=== PATIENT | female | born 2000 | race Caucasian/White ===

== ENCOUNTER 2020-08-25 20:07 | Emergency (ER) | payer BC, SELFPAY ==
[2020-08-25 20:10] VITALS: BP 126/95; PULSE 86; RESP 20; TEMP 37.2; O2SAT 98
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
[2020-08-25] MEDS: SILVER SULFADIAZINE 1% CR 50 GM JAR (*BKC) 1 APPLIC TOPICAL (20:25)
[2020-08-25 20:49] VITALS: BP 126/95; PULSE 87; RESP 20; TEMP 37.2; O2SAT 97
== END 2020-08-25 20:51 | disposition home or self-care (01) ==
PROVIDERS: Emergency Provider Emergency Medicine
DX: T23.261A Burn of second degree of back of right hand, initial encounter (principal); X08.8XXA Exposure to other specified smoke, fire and flames, initial encounter
CPT/HCPCS: 16020; 99283; A9270

== ENCOUNTER 2021-07-21 18:12 | Emergency (ER) | payer BC, MEDICAID, SELFPAY ==
--- NOTE | 2021-07-21 18:34 | ED.NAVMDI ---
HPI - Nausea/Vomiting/Diarrhea General Chief complaint: Headache Stated complaint: headache,diarrhea,fever,dizzy,weakness Time Seen by Provider: 07/21/21 18:14 Source: patient Mode of arrival: ambulatory Limitations: no limitations History of Present Illness HPI Narrative: Previously well 20-year-old woman comes in today complaining of 6 days of diarrhea, fatigue, headache, dizziness and weakness. She states she had fever for the 1st 2 days of her illness. Her preschool children had some mild illness prior to her, 1 of whom had diarrhea. She has had no other exposures. She had 2 negative rapid COVID tests in the last week. She denies nausea, vomiting, abdominal pain, rash, dysuria, and blood in her stools. MD elicited complaint: diarrhea Onset (ago): day(s) (6) Description of diarrhea: watery Associated nausea: No Associated abdominal pain: No (Except before a bowel movement) Quality: cramping Relieving factors: none Context: sick contacts Associated symptoms: myalgias, fever/chills, headaches, loss of appetite, malaise and fatigue Treatment prior to arrival: analgesics Related Data Home Medications Medication Instructions Recorded Confirmed sertraline 100 mg PO DAILY 07/21/21 07/21/21 Allergies Allergy/AdvReac Type Severity Reaction Status Date / Time amoxicillin Allergy Severe Other Verified 07/21/21 18:58 tramadol Allergy Severe THROAT Verified 07/21/21 18:58 SWELLING clavulanic acid Allergy Swelling Verified 07/21/21 18:58 [From Augmentin] Review of Systems Review of Systems: All systems reviewed & are unremarkable except as noted in HPI and below Constitutional: Constitutional: Denies chills and Reports fever(s) Eyes: Eyes: Denies change in vision and Denies photophobia ENT: Denies nasal congestion and Reports sore throat Respiratory: Respiratory: Denies cough, Denies dyspnea and Denies wheezing Gastrointestinal: Gastrointestinal: Reports abdominal pain, Reports diarrhea, Denies nausea and Denies vomiting Genitourinary: Genitourinary: Denies nocturia and Denies dysuria Musculoskeletal: Musculoskeletal: Denies arthralgias and Denies joint swelling Integumentary/Breasts: Skin/Breast: Denies pruritus, Denies erythema and Denies rash Neurologic: Denies vertigo, Reports dizziness and Denies syncope [facility] Past Medical History Medical History (Updated 07/21/21 @ 20:45 by Aguila Maya MD) Anxiety and depression GERD (gastroesophageal reflux disease) Surgical History Surgical History (Updated 07/21/21 @ 18:50 by Aguila Maya MD) History of X2 Social History Social History Smoking status: Never smoker Alcohol intake: never Substance use: never Exam Const: General: healthy appearing and alert Orientation/consciousness: patient oriented x3 Limitations: no limitations Other: Moderate acute distress. HENMT: Head: normal to inspection Ears: external ears normal, TM's normal bilaterally and EAC's normal General nose exam: Normal nares present Face and sinus: normal facial exam Mouth: Yes moist mucous membranes Throat: posterior oropharynx normal Eyes: Conjunctivae: conjunctivae normal Cornea: corneas normal Pupils: Equal, round and reactive pupils present EOM: EOMs intact bilaterally Neck: Neck: normal visual inspection and no meningeal signs Resp: Effort & Inspection: normal respiratory effort and not labored Auscultation: clear to auscultation bilaterally, no rales, no rhonchi and no wheezes Cardio: Rate: regular rate Rhythm: regular rhythm Heart sounds: no murmurs GI: GI Palp: Yes Soft to palpation and No Tenderness to palpation present (GI) Skin: General skin exam: normal color, no jaundice and no pallor Rashes: no rashes Neuro: General: patient oriented x3, moves all extremities, no focal motor deficits and CN's II-XI intact bilaterally Speech: normal speech Gait exam (Neuro):
[2021-07-21 18:41] VITALS: BP 119/76; PULSE 80; RESP 20; TEMP 36.7; O2SAT 100
[2021-07-21] MEDS: SODIUM CHLORIDE 0.9% IV 1,000 ML 999 ML IV CONT ×2 (18:53→20:10)
[2021-07-21 19:18] LABS: Basophils Absolute Auto 0.02 K/mm3 (0.00-0.10); Basophils Percent Auto 0.4 % (0.0-1.0); Eosinophils Absolute Auto 0.19 K/mm3 (0.02-0.50); Eosinophils Percent Auto 3.4 % (1.0-6.0); Hematocrit 34.3 % (35.0-49.0); Hemoglobin 10.2 g/dL (12.0-15.0); Immature Granulocyte Absolute 0.01 K/mm3 (0.00-0.00); Immature Granulocyte Percent A 0.2 % (0.0-0.0); Lymphocytes Absolute Auto 1.96 K/mm3 (1.10-4.50); Lymphocytes Percent Auto 35.1 % (18.0-42.0); Mean Corpuscular HGB Conc 29.7 g/dL (32.0-36.0); Mean Corpuscular Hemoglobin 24.3 pg (27.0-31.0); Mean Corpuscular Volume 81.9 fL (78.0-102.0); Mean Platelet Volume 11.1 fl (9.2-11.8); Monocytes Absolute Auto 0.69 K/mm3 (0.10-0.90); Monocytes Percent Auto 12.3 % (2.0-11.0); Neutrophils Absolute Auto 2.7 K/mm3 (1.7-7.2); Neutrophils Percent Auto 48.6 % (50.0-70.0); Platelet Count Result 317 K/mm3 (150-420); Red Blood Count 4.19 M/mm3 (4.20-5.40); Red Cell Distribution Width 14.5 % (11.6-14.4); White Blood Count 5.6 K/mm3 (4.8-10.8)
[2021-07-21 19:37] LABS: Lactic Acid Reflex 0.9 mmol/L (0.4-2.0)
--- NOTE | 2021-07-21 19:43 | PC.NURSE ---
received report from ALAYNA Gallegos. Patient has been swabbed and labs drawn and sent to lab, pending results. Patient resting comfortably in bed at this time.
[2021-07-21 19:44] LABS: Alanine Aminotransferase 29 U/L (14-59); Albumin Level 3.1 g/dL (3.4-5.0); Alkaline Phosphatase 65 U/L (46-116); Anion Gap 8 mmol/L (8-16); Aspartate Amino Transferase 21 U/L (15-37); Bilirubin,Total 0.1 mg/dL (0.00-1.00); Blood Urea Nitrogen 7 mg/dL (7-18); Calcium 8.1 mg/dL (8.5-10.1); Carbon Dioxide 26 mmol/L (21-32); Chloride 104 mmol/L (98-108); Estimated CRCL calculation 133 ml/min; Estimated Glomerular Filt Rate > 60; Glucose 81 mg/dL (70-99); Magnesium 1.8 mg/dL (1.8-2.4); Osmolality Calculated 283 mOsm/kg (285-295); Phosphorus 2.7 mg/dL (2.6-4.7); Potassium 3.5 mmol/L (3.5-5.1); Sodium 138 mmol/L (136-145)
[2021-07-21 19:45] VITALS: BP 146/80; PULSE 88; RESP 18; O2SAT 98
[2021-07-21 20:11] LABS: Add Urine Microscopic? NO; Appearance Urine Clear (Clear); Bilirubin Urine Negative (Negative); Blood Urine Negative (Negative); Color Urine Light Yellow (Yellow); Glucose Urine UA Negative (Negative); Ketones Urine Negative (Negative); Leukocyte Esterase Ur Negative (Negative); Nitrate Urine Negative (Negative); Protein Urine Negative (Negative); Urobilinogen Urine 0.2 mg/dL (0.2-1.0); pH Urine 7.5 (5.0-8.0)
[2021-07-21 20:12] LABS: Pregnancy On Board Control Positive; Urine Pregnancy Test Negative
[2021-07-21 20:13] LABS: SARS-CoV-2 RNA PCR Negative (Negative)
--- NOTE | 2021-07-21 20:25 | PC.NURSE ---
Patient unable to provide stool sample at this time
[2021-07-21] MEDS: KETOROLAC 30 MG/ML VIAL (*BKC) IV PUSH (21:00)
[2021-07-21 21:17] VITALS: BP 109/75; PULSE 77; RESP 18; TEMP 36.9; O2SAT 100
== END 2021-07-21 21:39 | disposition home or self-care (01) ==
PROVIDERS: Emergency Provider Emergency Medicine
DX: K52.9 Noninfective gastroenteritis and colitis, unspecified (principal); E86.0 Dehydration; Z20.822 Contact with and (suspected) exposure to COVID-19
CPT/HCPCS: 36415; 80053; 81003; 81025; 83605; 83735; 84100; 85025; 87040; 96361; 96374; 99283; 99284; C9803; J1885; J7030; U0003; U0005

== ENCOUNTER 2021-08-18 15:21 | Outpatient (CLI) | payer BC, SELFPAY ==
[2021-08-18 16:37] LABS: Basophils Absolute Auto 0.1 K/mm3 (0.0-0.1); Basophils Percent Auto 0.5 % (0.2-1.2); Eosinophils Absolute Auto 0.2 K/mm3 (0-0.3); Eosinophils Percent Auto 2.3 % (0-4.4); Hematocrit 34.9 % (37.0-47.0); Immature Granulocyte Absolute 0.02 K/mm3 (0.00-0.031); Immature Granulocyte Percent A 0.2 % (0-0.5); Lymphocytes Absolute Auto 2.35 K/mm3 (0.9-3.2); Lymphocytes Percent Auto 24.8 % (18.3-44.2); Mean Corpuscular HGB Conc 31.5 g/dl (32-36); Mean Corpuscular Hemoglobin 25.2 pg (26-34); Mean Corpuscular Volume 79.9 fl (80-100); Mean Platelet Volume 10.7 fl (7.4-10.4); Monocytes Absolute Auto 0.6 K/mm3 (0.1-0.6); Monocytes Percent Auto 6.6 % (2.6-8.5); Neutrophils Absolute Auto 6.2 K/mm3 (1.3-6.7); Neutrophils Percent Auto 65.6 % (45.5-73.1); Platelet Count Result 338 k/mm3 (150-375); Red Blood Count 4.37 M/mm3 (4.2-5.4); Red Cell Distribution Width 16.2 % (11.5-14.5); White Blood Count 9.5 K/mm3 (4.5-10.0)
[2021-08-18 17:32] LABS: HIV 1/2 Ab P24 Ag Result Negative (Negative)
[2021-08-18 18:41] LABS: Hepatitis B Surface Antigen Negative (Negative); Rubella IgG Antibody 52.7 IU/ML
[2021-08-19 12:40] LABS: Rapid Plasma Reagin Non-Reactive (NonReactive)
[2021-08-20 16:43] LABS: CMV IgG Antibody <0.60 U/mL (<0.60)
== END 2021-08-18 15:22 | disposition home or self-care (01) ==
LOC: ANHIMG 15:31 → ANHLAB 16:10
PROVIDERS: PCP Nurse Practitioner Family; Visit Provider Obstetrics & Gynecology
DX: N94.89 Other specified conditions associated with female genital organs and menstrual cycle (principal)
CPT/HCPCS: 36415; 84702; 85025; 86592; 86644; 86703; 86747; 86762; 86787; 86850; 86900; 86901; 87086; 87088; 87340; G0432

== ENCOUNTER 2021-08-25 16:27 | Outpatient (CLI) | payer BC, SELFPAY ==
--- NOTE | ~2021-08-25 | US_ITS ---
EXAMINATION: US OB <= 14 weeks fetus DATE: 08/25/2021 17:07 INDICATION: Dating of during first trimester TECHNIQUE: Real-time pelvic ultrasound utilizing both a transvaginal and transabdominal probe was pe rformed. The interpreting radiologist was not present for the study. COMPARISON: None. FINDINGS: The uterus measures 10.9 x 6.8 x 7.7 cm. There is an intrauterine gestational sac. A yolk sac and fe janee pole are identified. The crown rump length measures 2.0 cm, which correlates with an estimated ge stational age of 8 weeks and 4 days. heart motion is identified measuring 176 beats per minute (bpm) by M-mode Doppler. The right ovary measures 3.0 x 2.1 x 1.6 cm. Vascular flow identified in the right ovary on color Dop pler. The left ovary is not visualized. There is no free fluid in the pelvis. IMPRESSION: 1. Single living fetus with heart rate of 176 bpm. 2. Gestational age by ultrasound of 8 weeks 4 day(s) +/- 5 day(s) with ultrasound estimated date of delivery ([facility]) of 04/02/2022. Reviewed, dictated and finalized at location A. [employer] IMPRESSION: 1. Single living fetus with heart rate of 176 bpm. 2. Gestational age by ultrasound of 8 weeks 4 day(s) +/- 5 day(s) with ultraso und estimated date of delivery ([facility]) of 04/02/2022.
== END 2021-08-25 16:28 | disposition home or self-care (01) ==
LOC: ANHIMG 16:28
PROVIDERS: PCP Nurse Practitioner Family; Visit Provider Obstetrics & Gynecology
DX: Z34.91 Encounter for supervision of normal pregnancy, unspecified, first trimester (principal); Z3A.01 Less than 8 weeks gestation of pregnancy
CPT/HCPCS: 76801

== ENCOUNTER 2021-12-14 15:38 | Outpatient (CLI) | payer BC, SELFPAY ==
--- NOTE | ~2021-12-14 | US_ITS ---
EXAMINATION: US OB /maternal detail DATE: 12/14/2021 17:00 INDICATION: Second trimester anatomic survey TECHNIQUE: Real-time ultrasound of the pelvis was performed. COMPARISON: None. FINDINGS: There is a single living fetus in vertex presentation. The placenta is anterior and 4.3 cm from the i nternal cervical os. heart rate is 141 beats per minute (bpm). cardiac activity and feta l movement are noted. The amniotic fluid index is subjectively normal. The following anatomy was identified as normal: 4 chamber heart 3 vessel cord cord insertion kidneys urinary bladder stomach spine diaphragm ventricles cisterna magna cerebellum The following biometric data were obtained: Biparietal diameter (BPD): 5.9 cm; head circumference (HC): 22.1 cm; abdominal circumference (AC): 20 .9 cm; femur length (FL): 4.3 cm. These measurements are concordant. Estimated weight is 733 g +/- 110 g, which correlates with the 57th percentile when 04/02/2022 i s used as estimated date of delivery. As single measurements, these parameters are each equal to the following estimated gestational ages w ith ranges of +/- 2 standard deviations: BPD: 24 weeks 0 days +/- 1 weeks 5 days. HC: 24 weeks 1 days +/- 2 weeks 0 days. AC: 25 weeks 3 days +/- 2 weeks 1 days. FL: 24 weeks 1 days +/- 2 weeks 1 days. estimated gestational age based solely on measurements from this exam is 24 weeks 3 days +/- 1 weeks 5 days. IMPRESSION: 1. Single living fetus in vertex presentation. 2. Estimated weight is 733 g +/- 110 g, which correlates with the 57th percentile when 2 is used as estimated date of delivery. Reviewed, dictated and finalized at location F. IMPRESSION: 1. Single living fetus in vertex presentation. 2. Estimated weight is 733 g +/- 110 g, which correlates with the 57th pe rcentile when 04/02/2022 is used as estimated date of delivery.
== END 2021-12-14 15:39 | disposition home or self-care (01) ==
PROVIDERS: PCP Nurse Practitioner Family; Visit Provider Obstetrics & Gynecology
DX: Z34.92 Encounter for supervision of normal pregnancy, unspecified, second trimester (principal); Z3A.24 24 weeks gestation of pregnancy
CPT/HCPCS: 76805

== ENCOUNTER 2022-03-29 04:50 | Inpatient (IN) | payer BC, SELFPAY ==
[2022-03-29] VITALS (81 sets, daily range): BP systolic 104–130; BP diastolic 60–98; PULSE 54–139; RESP 16–20; TEMP 36.5–37.4; O2SAT 85–100; BMI 30.8
[2022-03-29] MEDS: LACTATED RINGERS 1,000 ML 125 ML IV CONT (06:32)
[2022-03-29] MEDS: GENTAMICIN SULFATE INJ 340 MG in DEXTROSE 5% 100 ML 108.5 MG IVPB (06:32)
[2022-03-29] MEDS: LACTATED RINGERS 1,000 ML 999 ML IV CONT (06:35)
--- NOTE | 2022-03-29 06:46 | LDADM ---
This patient, Shona Fierro, was admitted to Labor/Delivery/Recovery 120 on 03/29/22 at 04:50. Plans for labor, pain management and were discussed with patient. Patient/family oriented to hospital policies and general routines including ID bracelet, bed and alarms, visiting hours, pain management, procedures, bathroom and other care routines, personal items, smoking policy, room service/diet and guest tray routines, security routines, and visiting hours. Patient/Family are encouraged to report perceived risks to care and to ask questions if they do not understand what they are told or what they should do. See OBIX for further documentation.
[2022-03-29 06:51] LABS: Basophils Percent Auto 0.4 % (0.2-1.2); Eosinophils Absolute Auto 0.1 K/mm3 (0-0.3); Eosinophils Percent Auto 1.7 % (0-4.4); Hematocrit 28.4 % (37.0-47.0); Hemoglobin 8.2 g/dL (12.0-15.0); Immature Granulocyte Absolute 0.03 K/mm3 (0.00-0.031); Immature Granulocyte Percent A 0.4 % (0-0.5); Lymphocytes Absolute Auto 2.11 K/mm3 (0.9-3.2); Lymphocytes Percent Auto 29.7 % (18.3-44.2); Mean Corpuscular HGB Conc 28.9 g/dl (32-36); Mean Corpuscular Volume 76.1 fl (80-100); Mean Platelet Volume 11.9 fl (7.4-10.4); Monocytes Absolute Auto 0.8 K/mm3 (0.1-0.6); Monocytes Percent Auto 11.5 % (2.6-8.5); Neutrophils Percent Auto 56.3 % (45.5-73.1); Platelet Count Result 271 k/mm3 (150-375); Red Blood Count 3.73 M/mm3 (4.2-5.4); Red Cell Distribution Width 18.2 % (11.5-14.5); White Blood Count 7.1 K/mm3 (4.5-10.0)
--- NOTE | 2022-03-29 06:57 | WPDANESEPPF ---
Anes - Initial Pre Proc Eval Procedure: Operation Date: 03/29/22 07:30 Proposed Procedures p Repeat Section - Esequiel Evans MD Date/Time: 03/29/22 06:57 Surgeon: Esequiel Evans MD Pre Op Diagnosis: c/s Patient Data Age: 21 Gender: F Height: 1.65 m Weight: 84 kg Last Vital Signs Pulse 95 03/29/22 06:01 BP 112/71 03/29/22 06:01 O2 Del Method Room Air 03/29/22 06:44 Allergies Allergy/AdvReac Type Severity Reaction Status Date / Time amoxicillin Allergy Severe Other Verified 03/29/22 06:54 tramadol Allergy Severe THROAT Verified 03/29/22 06:54 SWELLING clavulanic acid Allergy Swelling Verified 03/29/22 06:54 [From Augmentin] Home Medications Medication Instructions Recorded Confirmed Type vitamins-iron fumarate 65 1 tablet PO DAILY 08/12/21 03/29/22 History mg iron-folic acid 1 mg tablet Laboratory Tests 03/29/22 03/29/22 03/29/22 06:17 06:17 06:17 WBC Pending RBC Pending Hgb Pending Hct Pending MCV Pending MCH Pending MCHC Pending RDW Pending Plt Count Pending MPV Pending Immature Gran % (Auto) Pending Neut % (Auto) Pending Lymph % (Auto) Pending Hettinger % (Auto) Pending Eos % (Auto) Pending Baso % (Auto) Pending Lymph # (Auto) Pending Hettinger # (Auto) Pending Eos # (Auto) Pending Baso # (Auto) Pending Abs Immat Gran (auto) Pending Absolute Neuts (auto) Pending Absolute Nucleated RBC Pending Nucleated RBC % Pending RPR Pending HIV 1&2 Ab/P24 Ag 4thGn Pending Patient hx anesthesia problems: none Family hx anesthesia problems: none Results Review: All pre-operative results and documents have been reviewed as part of the pre-operative evaluation. [facility] Past Medical History Medical History (Updated 09/15/21 @ 14:25 by Jessica Montanez MA) Anemia Anxiety and depression Endometriosis GERD (gastroesophageal reflux disease) Suppression of menstruation Urinary tract infection Surgical History Surgical History (Updated 08/11/21 @ 10:03 by Lia Malcolm) History of 03/11/19 10/11/17 History of laparoscopy 2017 diagnostic--endometriosis and lt ovarian bx Family History Family History (Updated 08/11/21 @ 10:05 by Lia Malcolm) Mother Hypertension Father Hypertension Grandparent Diabetes mellitus paternal grandmother Social History Social History (Updated 08/12/21 @ 10:04 by Vianney Lau, [facility]) Smoking status: Never smoker Second hand tobacco smoke exposure: No Alcohol intake: never Substance use: never Substance use type: does not use Additional occupation/education comments: [employer] Gender identity (if verbalized by the patient): Female Sexual Orientation (if Verbalized by the Patient): Straight or Heterosexual Spiritual care concerns: No Anes - Eval Final PreProcedure Day of Procedure 03/29/22 06:57 Patient weight: obese Heart: regular rate and rhythm Lungs: clear to auscultation and normal air movement Airway: Mallampati scale class II Neurological: alert and oriented Last oral intake: >/= 8 hours ASA classification: II Emergent: no Anesthetic plan: proceed Anesthesia type and monitoring: regional spinal Results Review: All pre-operative results and documents have been reviewed as part of the pre-operative evaluation. Informed Consent: The patient's anesthetic plan and its attendant risks and benefits were discussed with the patient/family/POA. Questions were solicited and answers provided to the satisfaction of the patient/family/POA.
--- NOTE | 2022-03-29 07:09 | PM.IMHP ---
H&P: HPI History of Present Illness Date/Time: 03/29/22 07:09 21 3 para 2001 female presents for repeat delivery. She is 39 weeks 3 days with 2 prior deliveries. records are on the chart and no significant abnormalities. Were also discussed/ offered tubal ligation and patient declines. Chief Complaint: Review of Systems Review of Systems: All systems reviewed & are unremarkable except as noted in HPI and below PMFSH Past Medical History Medical History Anemia Anxiety and depression Endometriosis GERD (gastroesophageal reflux disease) Suppression of menstruation Urinary tract infection Surgical History Surgical History History of 03/11/19 10/11/17 History of laparoscopy 2017 diagnostic--endometriosis and lt ovarian bx Family History Family History Mother Hypertension Father Hypertension Grandparent Diabetes mellitus paternal grandmother Social History Social History Smoking status: Never smoker Second hand tobacco smoke exposure: No Alcohol intake: never Substance use: never Substance use type: does not use 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 Gender identity (if verbalized by the patient): Female Sexual Orientation (if Verbalized by the Patient): Straight or Heterosexual Spiritual care concerns: No Meds Home Medications and Allergies Home Medications Medication Instructions Recorded Confirmed Type vitamins-iron fumarate 65 1 tablet PO DAILY 08/12/21 03/29/22 History mg iron-folic acid 1 mg tablet Allergies Allergy/AdvReac Type Severity Reaction Status Date / Time amoxicillin Allergy Severe Other Verified 03/29/22 06:54 tramadol Allergy Severe THROAT Verified 03/29/22 06:54 SWELLING clavulanic acid Allergy Swelling Verified 03/29/22 06:54 [From Augmentin] Vital Signs Vital Signs - 24 hr 03/29/22 05:14 03/29/22 05:16 03/29/22 05:30 Pulse Rate 92 91 95 Blood Pressure 128/75 114/72 119/75 Oxygen Delivery 03/29/22 05:45 03/29/22 06:01 03/29/22 06:44 Pulse Rate 96 95 Blood Pressure 117/74 112/71 Oxygen Delivery Room Air Exam Const: General: cooperative, healthy appearing and comfortable Resp: Effort & Inspection: normal respiratory effort Auscultation: clear to auscultation bilaterally Cardio: Rate: regular rate Rhythm: regular rhythm GI: Inspection: normal to inspection Auscultation: normal bowel sounds : External Female Exam: normal external appearance Speculum Exam - Vagina: normal appearance of the vagina Speculum Exam - Cervix: normal appearance of the cervix Bimanual exam- vagina & uterus: enlarged ( heart tone 140 /fundal height 40cm) H&P: Results Labs Labs: Short CBC 03/29/22 Range/Units 06:17 WBC 7.1 (4.5-10.0) K/mm3 Hgb 8.2 L (12.0-15.0) g/dL Hct 28.4 L (37.0-47.0) % Plt Count 271 (150-375) k/mm3 Assessment and Plan Assessment and plan (1) 39 weeks gestation of : Code(s): Z3A.39 - 39 weeks gestation of Status: Acute (2) Previous delivery affecting : Code(s): O34.219 - Maternal care for unspecified type scar from previous delivery Status: Acute Plan proceed with repeat low-transverse section.
--- NOTE | 2022-03-29 07:13 | WPDHPUPDATE1 ---
History and Physical Update Update Date/Time: 03/29/22 07:13 History and Physical has been reviewed, including an updated exam of the patient. There are NO changes in the patient's condition. Risks, benefits, and alternatives have been discussed and questions answered. Patient agrees to proceed with procedure.
[2022-03-29 07:19] LABS: Anisocytosis 1+ (NORMAL); Burr Cells 1+ (NORMAL); Hypochromasia 1+ (NORMAL); Microcytosis 1+ (NORMAL); Ovalocytes 1+ (NORMAL); Platelet Estimate Adequate (Adequate)
[2022-03-29 07:20] LABS: Tear Drop Cells 1+ (NORMAL)
[2022-03-29] MEDS: CLINDAMYCIN 900 MG/D5W 50 ML 900 MG/50 ML PIGGYBACK 50 MG IVPB (07:28)
[2022-03-29 07:38] LABS: HIV 1/2 Ab P24 Ag Result Negative (Negative)
--- NOTE | 2022-03-29 08:17 | PM.OBPRVD ---
OB - Delivery Note Procedure Procedure: Procedures Operation Date: 03/29/22 07:30 <No data on this case meets the specified criteria> Events: Previous Delivery Delivery monitor: External FHT Route of delivery: Specimen: No Quantitative Blood Loss (ml): 550 Anesthesia type: Spinal Disposition: PACU Complications: None Narrative: Patient was prepped and draped in Garima manner for this procedure. Pfannenstiel incision was made and carried down to the fascia. This was then extended bilaterally the length of the skin incision. Fascia was then sharply dissected away from the rectus muscles in the peritoneum was entered without difficulty. Bladder flap was developed uterus was scored with clear fluid noted. Vertex was delivered section naso-oropharynx rest of baby was delivered without difficulty. Cord clamped cut and uterus was exteriorized after the placenta was manually removed. Membranes and clots removed from the uterus and the uterine incision was then approximated using 0 Monocryl in a running interlocking manner. Uterus was turned the abdomen and continued to be hemostatic. All subfascial tissue was noted be hemostatic and the fascia was then approximated using 0 Vicryl from the left midline and the right angle to the midline. Subcutaneous tissue was irrigated approximated using 0 plain suture and lakeisha were used to approximate the skin edges. Patient was then sent to recovery room in stable condition. Baby Weeks of gestation at delivery: 39 gender: Female Weight (pounds): 8 Weight (ounces): 5 presentation: vertex Placenta delivery description: Manual Removal Cord Vessel Description: 3 Vessels score one minute: 7 score five minutes: 7 AMG Delivery Billing Delivery Delivery: Delivery Charge
--- NOTE | 2022-03-29 08:27 | SUR.PHASEI ---
Pt has 1000 ml of LR with 10 units Pitocin hanging.
[2022-03-29] MEDS: ONDANSETRON INJ 4 MG/2 ML VIAL IV PUSH (08:58)
[2022-03-29] MEDS: MORPHINE SULFATE INJ (*CRX) 10 MG/ML AMP 2 MG IV PUSH ×2 (09:25→10:07)
[2022-03-29] MEDS: OXYTOCIN 30 UNITS/NS 500 ML 30 UNITS/500 ML BAG 125 UNITS IV CONT (10:00)
--- NOTE | 2022-03-29 10:09 | SUR.OPER ---
Dr. Evans informed I have been having to massage uterus for it to become firm and then several small clots have been expressed. Recovery QBL is still OK at 171 ml. Order received for a dose of Methergine.
[2022-03-29] MEDS: METHYLERGONOVINE MALEATE 0.2 MG/ML VIAL IM (10:15)
--- NOTE | 2022-03-29 10:51 | PC.NURSE ---
Pt to nursery per stretcher to see .
--- NOTE | 2022-03-29 11:01 | SUR.OPER ---
Pt had arm bent with 1100 BP that was 130/98; repeat taken with arm relaxed was 119/75.
--- NOTE | 2022-03-29 11:42 | PC.NURSE ---
Patient transferred to post room # via ( [id number] ). Support person present. Oriented to unit, room, information board, rooming in, admission packet and security measures. Patient verbalizes understanding.
[2022-03-29] MEDS: DEXTROSE 5%/0.45% SOD CHL 1,000 ML 125 ML IV CONT (15:10)
[2022-03-29] MEDS: DOCUSATE SODIUM 100 MG CAPSULE PO (15:11)
[2022-03-29] MEDS: MULTIVIT/MIN/PREN/FOL AC/IRON TABLET 1 TAB PO (15:12)
--- NOTE | 2022-03-29 16:16 | PC.NURSE ---
[id number] Introductions were made, then consulted with patient to assess needs related to . Mother led the conversation with the separation between her and her infant at delivery. Resources provided for inpatient and outpatient services using a resource guide and mom/baby guide. Mother voiced understanding of information and is willing to initiate pumping. Breast pump provided due to separation. Instructions given on cleaning, care, usage, that there should be no pain, pumping schedule for milk production, collection, and storage of human milk. Parents are encouraged to record pumping schedule on the feeding sheet. Patient was assessed for correct placement, flange size, to pump for comfort and nipple stretching/stimulation for adequate milk production every 3 hours (8 times in 24 hours) 1-2 times at night. Mother voiced understanding of the education shared along with mom and baby guide for additional resource information. Reported to the primary RN.
[2022-03-29] MEDS: LORATADINE 10 MG TABLET PO (17:14)
[2022-03-29] MEDS: POLYSACCHARIDE IRON COMPLEX 150 MG CAPSULE PO (17:14)
[2022-03-29] MEDS: HYDROcodone/acetaminophen (*CRX) 5-325 MG TABLET 1 TAB PO ×2 (17:14→21:54)
[2022-03-29] MEDS: diphenhydrAMINE HCl CAP 25 MG CAPSULE 50 MG PO (21:52)
[2022-03-29] MEDS: IBUPROFEN 600 MG TABLET PO (21:52)
[2022-03-29] MEDS: KCL 20 MEQ/D5/0.45% SOD CHL 1,000 ML 125 ML IV CONT (23:13)
[2022-03-29] MEDS: hydrOXYzine pamoate 25 MG CAPSULE 50 MG PO (23:56)
[2022-03-30 01:08] VITALS: BP 107/65; PULSE 76; RESP 18; TEMP 37; O2SAT 98
[2022-03-30 05:23] VITALS: BP 113/80; PULSE 84; RESP 16; TEMP 36.4; O2SAT 99
[2022-03-30] MEDS: IBUPROFEN 600 MG TABLET PO (05:37)
[2022-03-30] MEDS: HYDROcodone/acetaminophen (*CRX) 5-325 MG TABLET 1 TAB PO ×2 (05:39→11:47)
[2022-03-30] MEDS: SIMETHICONE 80 MG TAB.CHEW PO ×3 (05:40→12:02)
[2022-03-30 06:39] LABS: Basophils Percent Auto 0.4 % (0.2-1.2); Eosinophils Absolute Auto 0.2 K/mm3 (0-0.3); Eosinophils Percent Auto 2.3 % (0-4.4); Hematocrit 25.2 % (37.0-47.0); Hemoglobin 7.1 g/dL (12.0-15.0); Immature Granulocyte Absolute 0.02 K/mm3 (0.00-0.031); Immature Granulocyte Percent A 0.3 % (0-0.5); Lymphocytes Absolute Auto 1.78 K/mm3 (0.9-3.2); Lymphocytes Percent Auto 24.1 % (18.3-44.2); Mean Corpuscular HGB Conc 28.2 g/dl (32-36); Mean Corpuscular Hemoglobin 22.1 pg (26-34); Mean Corpuscular Volume 78.5 fl (80-100); Mean Platelet Volume 11.3 fl (7.4-10.4); Monocytes Absolute Auto 0.9 K/mm3 (0.1-0.6); Monocytes Percent Auto 11.8 % (2.6-8.5); Neutrophils Absolute Auto 4.5 K/mm3 (1.3-6.7); Neutrophils Percent Auto 61.1 % (45.5-73.1); Platelet Count Result 226 k/mm3 (150-375); Red Blood Count 3.21 M/mm3 (4.2-5.4); White Blood Count 7.4 K/mm3 (4.5-10.0)
[2022-03-30 07:25] LABS: Anisocytosis 1+ (NORMAL); Platelet Estimate Adequate (Adequate); Poikilocytosis 1+ (NORMAL)
[2022-03-30 07:30] VITALS: BP 117/81; PULSE 98; RESP 16; TEMP 37.1; O2SAT 99
--- NOTE | 2022-03-30 08:06 | P.DS_ITS ---
DS: Admitting Diagnosis Discharge Date 03/30/2022 Admitting Diagnosis OB - DS: Summary OB Procedures : None OB Procedures Intrapartum: OB Procedures: : None Peripartum Data Procedures: Procedures Operation Date: 03/29/22 07:30 Actual Procedure Side Surgeon p Repeat Section Esequiel Evans MD Time Spent with Patient Time attestation: Total time spent providing and/or coordinating discharge services: DS: Data Data Completed and Pending Labs on day of discharge: Labs from last 24 hours 03/30/22 06:31 WBC 7.4 RBC 3.21 L Hgb 7.1 L Hct 25.2 L MCV 78.5 L MCH 22.1 L MCHC 28.2 L RDW 18.0 H Plt Count 226 MPV 11.3 H Immature Gran % (Auto) 0.3 Neut % (Auto) 61.1 Lymph % (Auto) 24.1 Storey % (Auto) 11.8 H Eos % (Auto) 2.3 Baso % (Auto) 0.4 Lymph # (Auto) 1.78 Storey # (Auto) 0.9 H Eos # (Auto) 0.2 Baso # (Auto) 0.0 Abs Immat Gran (auto) 0.02 Absolute Neuts (auto) 4.5 Absolute Nucleated RBC 0.0 Nucleated RBC % 0.0 Platelet Estimate Adequate Poikilocytosis 1+ Anisocytosis 1+ Schistocytes Not Reportable Discharge Plan Discharge Discharging Clinician: Esequiel Evans Patient Disposition: Home, Self-Care Activity: as tolerated Diet: as tolerated Wound Care Instructions: incision open to air Patient Instructions: Antibiotic Form Stand Alone Forms: General Discharge Information Follow-up/Referrals: Esequiel Evans MD [Physician] - 1 Week Discharge Medications: New hydrocodone-acetaminophen 5-325 mg Tablet 1 tablet PO Q3H PRN (Reason: Moderate Pain (4-6)) Qty: 30 0RF ibuprofen 600 mg Tablet 600 mg PO Q6H PRN (Reason: Cramping) Qty: 30 0RF Continued vit-iron fum-folic ac 65 mg iron- 1 mg tablet 1 tablet PO DAILY Date of admission: 03/29/22 04:50 Primary Care Provider: Peña,She Hargrove Admitting Provider: Esequiel Evans Attending physician on admission: Esequiel Evans Condition: Stable
[2022-03-30] MEDS: DOCUSATE SODIUM 100 MG CAPSULE PO (08:20)
[2022-03-30] MEDS: MULTIVIT/MIN/PREN/FOL AC/IRON TABLET 1 TAB PO (08:20)
[2022-03-30] MEDS: POLYSACCHARIDE IRON COMPLEX 150 MG CAPSULE PO (08:20)
[2022-03-30 08:41] VITALS: BP 113/80
[2022-03-30 10:39] LABS: Rapid Plasma Reagin Non-Reactive (NonReactive)
[2022-03-30] MEDS: TETANUS,DIPHTHERIA,AC PERTUSSIS ADULT (0.5 ML) BOOSTRIX IM (11:34)
[2022-03-31 10:49] VITALS: BP 120/65; PULSE 83; RESP 20; TEMP 37.3; O2SAT 100
== END 2022-03-30 12:35 | disposition home or self-care (01) | DRG 788 ==
LOC: ANHLDR 04:52 → ANHOB2 11:43
PROVIDERS: Admitting Provider Obstetrics & Gynecology; PCP Nurse Practitioner Family; Visit Provider Obstetrics & Gynecology
PROC: 10D00Z1 Extraction of Products of Conception, Low, Open Approach (ICD-10-PCS; CPT 59514; principal; 2022-03-29 07:30)
DX: O34.219 Maternal care for unspecified type scar from previous cesarean delivery (principal); O99.02 Anemia complicating childbirth; Z3A.39 39 weeks gestation of pregnancy; Z37.0 Single live birth
CPT/HCPCS: 36415; 85025; 86592; 86703; 86850; 86900; 86901; 90715; A9270; G0432; J0131; J1580; J2210; J2270; J2274; J2405; J2590; J3010; J3480; J7120

== ENCOUNTER 2022-05-18 21:19 | Emergency (ER) | payer BC, SELFPAY ==
--- NOTE | ~2022-05-18 | XR_ITS ---
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 RESULT: Lines, tubes, and devices: None. Lungs and pleura: Clear. Cardiomediastinal silhouette: Normal. Other: No acute osseous or upper abdominal finding. IMPRESSION: No acute cardiopulmonary process. Reviewed, dictated and finalized at location K. RACT ASSOCIATE
[2022-05-18 21:22] VITALS: BP 116/86; PULSE 137; RESP 20; TEMP 37.6; O2SAT 93
--- NOTE | 2022-05-18 22:07 | ED.URI ---
HPI - URI/Sore Throat General Chief Complaint: Upper Respiratory Infection Stated Complaint: fever, sore throat, chills Time Seen by Provider: 05/18/22 21:23 Source: patient and RN notes reviewed Mode of arrival: ambulatory Limitations: no limitations History of Present Illness MD elicited complaint: fever and sore throat Onset (ago): day(s) (2) Consistency: constant Severity: moderate Pain scale (0-10): 3 Able to tolerate fluids by mouth: Yes Exacerbating factors: swallowing Relieving factors: NSAID Associated symptoms: fever, myalgias and sore throat Treatments prior to arrival: ibuprofen Related Data Allergies Allergy/AdvReac Type Severity Reaction Status Date / Time amoxicillin Allergy Severe Other Verified 05/05/22 10:35 tramadol Allergy Severe THROAT Verified 05/05/22 10:35 SWELLING clavulanic acid Allergy Swelling Verified 05/05/22 10:35 [From Augmentin] Review of Systems Review of Systems: All systems reviewed & are unremarkable except as noted in HPI and below Constitutional: Constitutional: Reports no additional constitutional complaints and Reports fever(s) Eyes: Eyes: Reports no additional eye complaints ENT: Reports system reviewed and no additional complaints, except as documented and Reports sore throat Cardiovascular: Cardiovascular: Reports no additional cardiovascular complaints and Reports rapid heart rate Respiratory: Respiratory: Reports no additional respiratory complaints Gastrointestinal: Gastrointestinal: Reports no additional gastrointestinal complaints Genitourinary: Genitourinary: Reports no additional female genitourinary complaints Musculoskeletal: Musculoskeletal: Reports no additional musculoskeletal complaints Integumentary/Breasts: Skin/Breast: Reports system reviewed and no additional complaints, except as docu Neurologic: Reports system reviewed and no additional complaints, except as documented Psychiatric: Psychiatric: Reports no additional psychiatric complaints Endocrine: Endocrine: Reports no additional endocrine complaints Hematologic/Lymphatic: Hematologic/Lymphatic: Reports no additional hematologic/lymphatic complaints Allergic/Immunologic: Allergic/Immunologic: Reports no additional allergic/immunologic complaints PMFSH Past Medical History Medical History Anemia Anxiety and depression Endometriosis GERD (gastroesophageal reflux disease) Pharyngitis Suppression of menstruation Urinary tract infection Surgical History Surgical History Delivery by section (03/29/22) rpt c/s History of 03/11/19 10/11/17 History of laparoscopy 2017 diagnostic--endometriosis and lt ovarian bx Family History Family History Mother Hypertension Father Hypertension Grandparent Diabetes mellitus paternal grandmother Social History Social History Smoking status: Never smoker Second hand tobacco smoke exposure: No Alcohol intake: never Substance use: never Substance use type: does not use Additional living arrangements comments: single 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 Gender identity (if verbalized by the patient): Female Sexual Orientation (if Verbalized by the Patient): Straight or Heterosexual Spiritual care concerns: No Exam Const: General: no acute distress and well nourished Nutritional Appearance: well nourished Orientation/consciousness: patient oriented x3 Limitations: no limitations HENMT: Head: normal to inspection Ears: external ears normal, TM's normal bilaterally and EAC's normal Face/Nose/Sinus: Normal external nose present, Normal nares present, normal facial exam and sinuses nontender Face and sinus: normal facial exam and sinuses nontender M
[2022-05-18] MEDS: SODIUM CHLORIDE 0.9% IV 1,000 ML 999 ML IV CONT (22:12)
[2022-05-18] MEDS: ACETAMINOPHEN 325 MG TABLET 650 MG PO (22:12)
[2022-05-18] MEDS: IBUPROFEN 400 MG TABLET 200 MG PO (22:14)
--- NOTE | 2022-05-18 22:16 | ECG_ITS ---
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
[2022-05-18 22:20] LABS: Strep Group A RT-PCR Negative (Negative)
[2022-05-18 22:21] LABS: Hematocrit 32.3 % (35.0-49.0); Hemoglobin 9.8 g/dL (12.0-15.0); Mean Corpuscular HGB Conc 30.3 g/dL (32.0-36.0); Mean Corpuscular Hemoglobin 23.4 pg (27.0-31.0); Mean Corpuscular Volume 77.3 fL (78.0-102.0); Mean Platelet Volume 10.4 fl (9.2-11.8); Platelet Count Result 342 K/mm3 (150-420); Red Blood Count 4.18 M/mm3 (4.20-5.40); Red Cell Distribution Width 18.9 % (11.6-14.4); White Blood Count 11.3 K/mm3 (4.8-10.8)
[2022-05-18 22:27] LABS: Influenza A QL RT-PCR Negative (Negative); Influenza B QL RT-PCR Negative (Negative); SARS-CoV-2 RNA PCR Negative (Negative)
[2022-05-18 22:38] LABS: Atypical Lymphocytes Present; Band Neutrophils Percent 1 % (0-6); Basophils Percent Manual 0 % (0-1); Eosinophils Percent Manual 0 % (1-6); Lymphocytes Absolute Manual 1.92 K/mm3 (1.1-4.5); Lymphocytes Percent Manual 17 % (18-44); Monocytes Absolute Manual 1.01 K/mm3 (0.1-0.90); Monocytes Percent Manual 9 % (3-9); Neutrophils Absolute Manual 8.36 K/mm3 (1.7-7.2); Neutrophils Percent Manual 73 % (46-73); Platelet Estimate Adequate (Adequate); Total Cells Counted 100
[2022-05-18 22:39] LABS: Alanine Aminotransferase 45 U/L (14-59); Albumin Level 3.3 g/dL (3.4-5.0); Alkaline Phosphatase 78 U/L (46-116); Anion Gap 9 mmol/L (8-16); Aspartate Amino Transferase 26 U/L (15-37); Bilirubin,Total 0.2 mg/dL (0.00-1.00); Blood Urea Nitrogen 14 mg/dL (7-18); Calcium 7.8 mg/dL (8.5-10.1); Carbon Dioxide 25 mmol/L (21-32); Chloride 105 mmol/L (98-108); Estimated CRCL calculation 117 ml/min; Estimated Glomerular Filt Rate > 60; Glucose 93 mg/dL (70-99); Osmolality Calculated 288 mOsm/kg (285-295); Potassium 3.7 mmol/L (3.5-5.1); Sodium 139 mmol/L (136-145); Total Protein 7.6 g/dL (6.4-8.2); Troponin I < 4.0 ng/L (0.00-60.4)
[2022-05-18 22:43] LABS: Lactic Acid Reflex 0.5 mmol/L (0.4-2.0)
[2022-05-18 22:45] VITALS: TEMP 37.2
[2022-05-18 22:48] VITALS: TEMP 37.2
[2022-05-18] MEDS: SODIUM CHLORIDE 0.9% IV 500 ML 999 ML ×2 (22:53→23:36)
[2022-05-18 23:32] VITALS: BP 110/75; PULSE 117; RESP 20; TEMP 36.8; O2SAT 97
[2022-05-18 23:47] LABS: Add Urine Microscopic? YES; Appearance Urine Clear (Clear); Bilirubin Urine Negative (Negative); Blood Urine Negative (Negative); Color Urine Yellow (Yellow); Glucose Urine UA Negative (Negative); Ketones Urine Negative (Negative); Leukocyte Esterase Ur Negative (Negative); Nitrate Urine Negative (Negative); Protein Urine Trace (Negative); Specific Grav Ur 1.025 (1.010-1.020); Urobilinogen Urine 0.2 mg/dL (0.2-1.0)
[2022-05-18 23:53] LABS: Bacteria Urine Trace /hpf; Mucus Urine Moderate /lpf; RBC Urine 0-2 /hpf (0-2); Squamous Epithelial Cell Urine Rare /hpf (Few); WBC Urine 0-3 /hpf (0-3)
[2022-05-19 00:14] VITALS: BP 94/70; PULSE 87; RESP 20; TEMP 36.6; O2SAT 97
[2022-05-19] MEDS: CALCIUM CARBONATE (TUMS) 500 MG (200 MG ELEMENTAL) 1000 MG PO (00:16)
[2022-05-19 00:19] VITALS: BP 106/79; PULSE 91; RESP 20; TEMP 36.6; O2SAT 97
--- NOTE | 2022-05-25 14:24 | PC.NURSE ---
BLOOD CULTURE X2 FINAL: NO GROWTH AFTER 5 DAYS. NO ACTION NEEDED
== END 2022-05-19 01:08 | disposition home or self-care (01) ==
PROVIDERS: Emergency Provider Emergency Medicine
DX: J02.9 Acute pharyngitis, unspecified (principal); E86.0 Dehydration; E83.51 Hypocalcemia
CPT/HCPCS: 36415; 71045; 80053; 81001; 83605; 84484; 85025; 87040; 87502; 87651; 93005; 96361; 96365; 99284; A9270; J0696; J7030; J7040; U0003; U0005

== ENCOUNTER 2024-11-09 23:10 | Emergency (ER) | payer BC, SELFPAY ==
[2024-11-09 23:13] VITALS: BP 116/67; PULSE 73; RESP 20; TEMP 36.8; O2SAT 100
[2024-11-10 01:24] LABS: Add Urine Microscopic? YES; Appearance Urine Cloudy (Clear); Bacteria Urine None Seen /hpf; Bilirubin Urine Negative (Negative); Blood Urine 2+ (Negative); Color Urine Yellow (Yellow); Glucose Urine UA Negative (Negative); Ketones Urine Negative (Negative); Leukocyte Esterase Ur Negative LEU/UL (Negative); Nitrate Urine Negative (Negative); Non Pathogenic Casts 0-2; Protein Urine Negative (Negative); RBC Urine 0-2 /hpf (0-2); Specific Grav Ur 1.018 (1.001-1.035); Squamous Epithelial Cell Urine None Seen /hpf (Few); Urobilinogen Urine 0.2 mg/dL (<2.0); WBC Urine 0-5 /hpf (0-3)
[2024-11-10 01:27] LABS: Alanine Aminotransferase 17 U/L (6-35); Alkaline Phosphatase 43 U/L (38-126); Anion Gap 10 mmol/L (4-12); Aspartate Amino Transferase 26 U/L (14-36); Bilirubin,Total 0.1 mg/dL (0.2-1.3); Blood Urea Nitrogen 15 mg/dL (7-17); Carbon Dioxide 26 mmol/L (22-30); Chloride 100 mmol/L (98-107); Estimated CRCL calculation 102 ml/min; Estimated Glomerular Filt Rate > 60; Glucose 85 mg/dL (65-110); Lipase 89 U/L (23-300); Magnesium 1.8 mg/dL (1.6-2.3); Potassium 3.5 mmol/L (3.4-5.0); Sodium 136 mmol/L (137-145)
[2024-11-10 01:33] LABS: Basophils Percent Auto 0.4 % (0.2-1.2); Eosinophils Absolute Auto 0.2 K/mm3 (0-0.3); Eosinophils Percent Auto 3.3 % (0-4.4); Hematocrit 33.8 % (37.0-47.0); Hemoglobin 10.4 g/dL (12.0-15.0); Immature Granulocyte Absolute 0.01 K/mm3 (0.00-0.031); Immature Granulocyte Percent A 0.1 % (0-0.5); Lymphocytes Percent Auto 39.5 % (18.3-44.2); Mean Corpuscular HGB Conc 30.8 g/dl (32-36); Mean Corpuscular Hemoglobin 27.3 pg (26-34); Mean Corpuscular Volume 88.7 fl (80-100); Mean Platelet Volume 10.3 fl (7.4-10.4); Monocytes Absolute Auto 0.6 K/mm3 (0.1-0.6); Neutrophils Absolute Auto 3.6 K/mm3 (1.3-6.7); Neutrophils Percent Auto 48.7 % (45.5-73.1); Platelet Count Result 302 k/mm3 (150-375); Red Blood Count 3.81 M/mm3 (4.2-5.4); White Blood Count 7.4 K/mm3 (4.5-10.0)
--- NOTE | 2024-11-10 02:14 | ED.FEMALEGU ---
HPI - Female Genitourinary General Chief complaint: OB/Uterine Contractions Stated complaint: vag bleed Time Seen by Provider: 11/10/24 01:46 History of Present Illness HPI Narrative: Patient is a 23-year-old female who presents emergency department this evening complaining of vaginal bleeding. Patient states that she is approximately 6 weeks , . Patient states that for about an hour she did have moderate amount of bleeding, bright red blood, now states that she only sees a very minimal brown discharge. States that she had some mild cramping but no severe right lower or left lower quadrant abdominal pain. Patient has already had an ultrasound for this confirming an intrauterine gestation. Patient was informed that it was too early to see much but they did see a large sac in her uterus cavity. She follows up with Dr. Evans and has an upcoming appointment on Tuesday in 2 days. Denies any additional symptoms or concerns at this time. Related Data Allergies Allergy/AdvReac Type Severity Reaction Status Date / Time amoxicillin Allergy Severe Other Verified 11/09/24 23:17 tramadol Allergy Severe THROAT Verified 11/09/24 23:17 SWELLING clavulanic acid (From Allergy Swelling Verified 11/09/24 23:17 Augmentin) Review of Systems Review of Systems: All systems are reviewed and are negative unless stated otherwise in the HPI. [facility] Past Medical History Medical History Pharyngitis Suppression of menstruation Urinary tract infection Endometriosis Anemia GERD (gastroesophageal reflux disease) Anxiety and depression Surgical History Surgical History Delivery by section (03/29/22) rpt c/s History of laparoscopy 2017 diagnostic--endometriosis and lt ovarian bx History of 03/11/19 10/11/17 Family History Family History Mother Hypertension Father Hypertension Grandparent Diabetes mellitus paternal grandmother Social History Social History Smoking status: Never smoker Second hand tobacco smoke exposure: No Alcohol intake: never Substance use: never Substance use type: does not use Living arrangements: other Additional living arrangements comments: single Occupation/Education: occupation 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 HEENT: PERRL, no rhinorrhea, no post nasal drip, oropharynx clear. Neck: Trachea midline, no JVD, no lymphadenopathy. Cardiovascular: Regular rate and rhythm, no murmurs, rubs or gallops, no peripheral edema. Respiratory: Clear to auscultation bilaterally, no tachypnea, no wheezing, no rhonchi, no rubs, no respiratory distress. Abdomen: Soft, nontender, nondistended, no rebound, no guarding, no peritoneal signs. Musculoskeletal: No joint swelling or deformity, normal muscle tone. Skin: No rashes or petechia, no signs of infection. Psychiatric: Alert and oriented, normal behavior and judgment for situation. Neurological: Alert and oriented to person, place, and time. Follows all commands. No focal deficits, speech is clear and fluent. Course Vital Signs Vital signs: Vital Signs Temperature 98.3 F 11/09/24 23:13 Pulse Rate 73 11/09/24 23:13 Respiratory Rate 20 11/09/24 23:13 Blood Pressure 116/67 11/09/24 23:13 Pulse Oximetry 100 11/09/24 23:13 Oxygen Delivery Room Air 11/09/24 23:13 Temperature 98.3 F 11/09/24 23:13 Pulse Rate 73 11/09/24 23:13 Respiratory Rate 20 11/09/24 23:13 Blood Pressure 116/67 11/09/24 23:13 Pulse Oximetry 100 11/09/24 23:13 Oxygen Delivery Room Air 11/09/24 23:13 MDM - Female Genitourinary MDM Narrative Medical decision making narrative: The patient was evaluated by myself in the emergency department. History is obtained from patient who is an independent historian and physical exam was performed. External medical records were reviewed at this time. IV was established and pertinent tests were ordered. Laboratory results obtained revealing no acute process. Beta hCG level noted to be 19,971. Patient's blood type is O positive. Urinalysis unremarkable. Differential diagnosis considerations include threatened miscarriage, normal first-trimester , missed . Comorbidities impacting this visit include none. I have evaluated and discussed social determinants of health with the patient that could potentially impact subsequent diagnosis and treatment plans. On repeat assessment of the patient, reevaluation revealed that the patient is doing well and is in no acute distress. Patient symptoms have improved since she arrived to our emergency department. Repeat vital signs were all reviewed and noted to be stable. Differential diagnosis and treatment plan were discussed with the patient at bedside. Patient agrees with discussion and after shared medical decision making agrees with discharge. All questions were answered to the patient's satisfaction. Patient will follow up with her OB as scheduled for her upcoming appointment on Tuesday in 2 days. Patient was provided with strict return precautions and instructed to return to the emergency department if any new or worsening symptoms develop. The patient was discharged in stable condition. Lab Data 11/10/24 01:08 11/10/24 01:08 Labs: Lab Results 11/10/24 Range/Units 01:08 WBC 7.4 (4.5-10.0) K/mm3 RBC 3.81 L (4.2-5.4) M/mm3 Hgb 10.4 L D (12.0-15.0) g/dL Hct 33.8 L (37.0-47.0) % MCV 88.7 (80-100) fl MCH 27.3 (26-34) pg MCHC 30.8 L (32-36) g/dl RDW 13.0 (11.5-14.5) % Plt Count 302 (150-375) k/mm3 MPV 10.3 (7.4-10.4) fl Immature Gran % (Auto) 0.1 (0-0.5) % Neut % (Auto) 48.7 (45.5-73.1) % Lymph % (Auto) 39.5 (18.3-44.2) % Terry % (Auto) 8.0 (2.6-8.5) % Eos % (Auto) 3.3 (0-4.4) % Baso % (Auto) 0.4 (0.2-1.2) % Lymph # (Auto) 2.90 (0.9-3.2) K/mm3 Terry # (Auto) 0.6 (0.1-0.6) K/mm3 Eos # (Auto) 0.2 (0-0.3) K/mm3 Baso # (Auto) 0.0 (0.0-0.1) K/mm3 Abs Immat Gran (auto) 0.01 (0.00-0.031) K/mm3 Absolute Neuts (auto) 3.6 (1.3-6.7) K/mm3 Absolute Nucleated RBC 0.000 (0.0-0.012) K/mm3 Nucleated RBC % 0.0 (0.0-0.2) % Sodium 136 L (137-145) mmol/L Potassium 3.5 (3.4-5.0) mmol/L Chloride 100 (98-107) mmol/L Carbon Dioxide 26 (22-30) mmol/L Anion Gap 10 (4-12) mmol/L BUN 15 (7-17) mg/dL Creatinine 0.62 L (0.7-1.0) mg/dL Estim Creat Clear Calc 102 ml/min Estimated GFR > 60 (59 - ) Glucose 85 (65-110) mg/dL Calcium 9.0 (8.4-10.2) mg/dL Magnesium 1.8 (1.6-2.3) mg/dL Total Bilirubin 0.1 L (0.2-1.3) mg/dL AST 26 (14-36) U/L ALT 17 (6-35) U/L Alkaline Phosphatase 43 (38-126) U/L Total Protein 7.0 (6.3-8.2) g/dL Albumin 4.0 (3.5-5.1) g/dL Lipase 89 (23-300) U/L Beta HCG, Quant 84923.00 mIU/ML Urine Color Yellow (Yellow) Urine Appearance Cloudy H (Clear) Urine pH 7.0 (5.0-9.0) Ur Specific [place] 1.018 (1.001-1.035) Urine Protein Negative (Negative) mg/dL Urine Glucose (UA) Negative (Negative) mg/dL Urine Ketones Negative (Negative) mg/dL Ur Blood (Man) 2+ H (Negative) Urine Nitrate Negative (Negative) Urine Bilirubin Negative (Negative) Urine Urobilinogen 0.2 (<2.0) mg/dL Leukocyte Esterase Rfl Negative (Negative) RADHA/UL Urine RBC 0-2 (0-2) /hpf Urine WBC 0-5 (0-3) /hpf Ur Squamous Epith Cells None seen (Few) /hpf Urine Bacteria None seen /hpf Urine Casts 0-2 Blood Type O Positive Antibody Screen Negative Screen TNP Baby's Blood Type Not Reportable Baby's KARTHIK Not Reportable Doses of RhIg Required 0 Discharge Plan Discharge Clinical Impression: Threatened miscarriage Patient Disposition: Home Condition: Improved Instructions: Antibiotic Form, Threatened Miscarriage (ED) Additional Instructions: Please follow-up with your OBGYN as scheduled for your upcoming appointment in 2 days on Tuesday for repeat beta-hCG level he for your threatened miscarriage. Return to the emergency department if any new or worsening symptoms develop. Patient Language: Khmer Prescriptions: No Action cephalexin 500 mg capsule 500 mg PO Q6H 10 Days Qty: 40 0RF Mucinex DM 30-600 mg tablet extended release 12 hr 1 tablet PO Q12H PRN (Reason: cough) Qty: 20 0RF cephalexin 500 mg tablet 500 mg PO Q6H Qty: 40 0RF Mucinex DM 30-600 mg tablet extended release 12 hr 1 tablet PO Q12H PRN (Reason: cough) Qty: 20 0RF Follow-up/Referrals: Esequiel Evans MD [Primary Care Provider] - 2 Days Time of Disposition: 02:16
[2024-11-10 02:50] VITALS: BP 122/72; PULSE 76; RESP 15; O2SAT 100
--- OUTSIDE RECORDS SUMMARY | 2024-11-10 15:43 | XMS_ITS | Referral Summary ---
Author Organization 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 6 Active prenat.vits,bill, zsc-mmfe-ftlnu ( VITAMIN) tablet Take by mouth daily. Active ferrous sulfate ER (SLOW IRON) 140 mg (45 mg of elemental iron) tabletIndication s:Iron Deficiency Anemia 140 mg 2 (two) times a day with meals. Active dicyclomine (BENTYL) 10 mg capsuleIndicatio ns:Irritable bowel syndrome with both constipation and diarrhea Take 1 capsule (10 mg total) by mouth 4 (four) times a day as needed (abdominal pain or cramps). 60 capsule 5 8 Active Additional Information Patient not taking.Reported on 08/03/2021 cyclobenzaprine (FLEXERIL) 5 mg tabletIndication s:Chronic midline low back pain without sciatica Take 1 tablet (5 mg total) by mouth 3 (three) times a day as needed for muscle spasms. 30 tablet 8 Active Additional Information Patient not taking.Reported on 08/03/2021 lansoprazole (PREVACID) 30 mg capsuleIndicatio ns:Irritable bowel syndrome with both constipation and diarrhea TAKE 1 CAPSULE BY MOUTH ONCE DAILY 30 capsule 1 Active ondansetron (ZOFRAN) 4 mg tablet Take 1 tablet (4 mg total) by mouth every 6 (six) hours 12 tablet 3 Active Active Problems Problem Noted Date Diagnosed Date Irritable bowel syndrome wit h both constipation and diarrhea 06/08/2018 Anxiety and depression 09/28/2017 Immunizations Immunization Administration Dates Next Due DTP 02/12/2000, 9,03/20/1999,01/20 DTaP 11/07/2003 Hep A, Pediatric 06/19/2012 Hep B, Unspecified 06/20/1999,03/20/1999, 999 HiB 08/07/2002, 9,03/20/1999,01/20 IPV 11/07/2003,08/07/2002 Influenza LAIV (Nasal) 06/19/2012,05/02/2008 Influenza, Quadrivalent, Spl it, Preservative Free, Intramuscular 06/08/2018,05/10/2016 Influenza, Unspecified 08/03/2021(Deferr ed: Patient Refused),04/10/2020(Deferred: Patient Refused) MMR 11/07/2003,02/12/2000 Meningococcal ACWY, Unspecified 01/22/2010 Polio, Unspecified 03/20/1999,01/20/1999 Tdap 10/13/2017,01/22/2010 Varicella 06/19/2012,01/22/2010 Social History Tobacco Use Types Packs/Day Years Used Date Smoking Tobacco: Never Smokeless Tobacco: Never Alcohol Use Standard Drinks/Week Comments No 0 (1 standard drink = 0.6 oz pur e alcohol) PHQ-2 Answer Date Recorded PHQ-2 Total Score 0 08/03/2021 Personal Safety Answer Date Recorded Have you ever been in or are you currently in a harmful physical or emotional relationship or is someone making you feel afraid or unsafe? 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 Gender Identity Not on file Sexual Orientation Not on file Last Filed Vital Signs Vital Sign Reading Time Taken Comments Blood Pressure 118/68 01/29/2023 10:40 PM CDT Pulse 115 01/29/2023 10:40 PM CDT Temperature 36.7 C (98.1 F) 01/29/2023 10:40 PM CDT Respiratory Rate 17 01/29/2023 10:40 PM CDT Oxygen Saturation 100% 01/29/2023 10:40 PM CDT Inhaled Oxygen Concentration - - Weight 90.7 kg (200 lb) 01/29/2023 10:40 PM CDT Height 162.6 cm (5' 4 ) 01/29/2023 10:40 PM CDT Body Mass Index 34.33 01/29/2023 10:40 PM CDT Plan of Treatment Not on file Procedures Procedure Name Priority Date/Time Associated Diagnosis Comments HEPATITIS C ANTIBODY Routine 04/06/2017 from Last 3 Months or Most Recently Relevant to Health Maintenance Results * Hepatitis C antibody (04/06/2017) SCRIBED HCV ab Non-Reacti ve Blood specimen (specimen) Zachary Valdivia MD LAB MICROBIOLOGY - GENERAL OR DERABLES Final Result from Last 3 Months or Most Recently Relevant to Health Maintenance Insurance Member Subscriber Plan / Payer (Ef fective 2010-Present) Name:Shona Fierro Relation to Subscriber:Other Relationship Name:MIGUEL FIERRO Date of :1967 (Home) Address: [address] [place] [address] Payer ID:[id number] (NAIC) Type:BC ALLIANCE Address: [address] [place] ACCESS [place] ACCESS Advance Directives For more information, please contact: [phone] * Full Code (Latest Code Status on File) Date Activated Date Inactivated Comments 10/11/2017 4:27 PM 10/14/2017 11:53 PM * Full Code Date Activated Date Inactivated Comments 10/10/2017 4:36 PM 10/11/2017 4:27 PM Full CPR in ca se of cardiopulmonary arrest Care Teams Hydraulic Press Operator Relationship Specialty Start Date End Date Salty Gordon MD [address] [place] [address] PCP - General Family Medicine 08/11/22
--- OUTSIDE RECORDS SUMMARY | 2024-11-10 15:43 | XMS_ITS | Data Portability ---
Author Organization [place] [facility] [place] [facility] Address # [address] [place] [address] Care Team Providers Care Blemish Remover Name Role Phone MATA CASIANO Primary Care Provider Assessment Encounter Date Assessment Date Assessment LastModified by Organization Details LastModified Time 06/09/2017 06/09/2017 Per DA she should go to her OB for a refill of medication since she is currently . [email or web address] Not available 06/09/2017 17:45:53 Plan of Treatment Reminders Order Date Submit Date Provider Last Modified By Organization Details Last Modified Time Details Appointments None recorded. Lab hemoglobin (Hb), fingerstick , blood 2015 016 [facility], [address], [place], [address], 6 04:06:24 CMP, serum or plasma 2015 016 [facility], [address], [place], [address], 6 04:06:16 CBC 2015 0[address] [facility] [address], [place], [address], 6 04:06:17 erythrocyte sedimentati on rate by westergren method 2015 016 [facility], [address], [place], [address], 6 04:06:17 Referral None recorded. Procedures None recorded. Surgeries None recorded. Imaging XR, chest, 2 view 2015 016 Not available 6 04:06:17 electrocard iogram 2015 016 [id number] Not available 6 04:06:17 Medication Orders sertraline 50 mg tablet 2015 016 [id number], [address], [place], [place], [id number], 6 04:06:24 ranitidine 150 mg tablet 2015 016 [id number], [address], [place], [place], [id number], 7 17:11:57 albuterol sulfate HFA 90 mcg/actuati on aerosol inhaler 2015 016 [facility] #[id number], [address], [place], [place], [id number], 6 04:06:16 Patient TargetsNo targets recorded. Patient Instructions Encounter Date Encounter Id Patient Instructions Last Modified By Organization Details Last Modified Time 04/02/2016 [id number] wheezing or bronchoconstricti on: care instructions [email or web address] Not available 04/02/2016 14:18:27 05/10/2016 [id number] depression screening* [email or web address] [id number] Not available 06/26/2016 04:06:25 Reason for Referral None Reported. Results Created Date Observation Date Name Description Value Unit Range Abnormal Flag Note LastModifiedBy Organization Detail LastModifiedTime 05/10/20 16 05/10/2016 depre padmaon scree karen* PDQ-9 12 Not Available [facility] [address] [facility] [address], [place], [address], 05/10/2016 09:54:27 05/10/20 16 05/10/2016 hemog lobin (Hb), finge rstic k, blood HGB 11 Not Available [facility] [address] [facility] [address], [place], [address], 05/10/2016 09:49:18 11/12/19 16 11/12/2015 monon ucleo sis, heter ophil e Ab, blood MONONUCLEOSI S, RAPID positi ve Not Available [facility] [address] [facility] [address], [place], [address], 11/12/2015 15:49:17 11/12/19 16 11/14/2015 eryth rocyt e sedim entat ion rate by lloyd anderson metho d sed rate by modified maryan 14 mm/h < or = 20 normal Not Available [address], [address], 11/14/2015 16:16:06 11/12/19 16 11/14/2015 CBC w/ auto diff white blood cell count 5.3 thous and/u L 4.5-13 .0 normal Not Available [address], [address], 11/14/2015 16:16:06 11/12/19 16 11/14/2015 CBC w/ auto diff red blood cell count 4.48 kwasi on/uL 3.80-5 .10 normal Not Available [address], [address], 11/14/2015 16:16:06 11/12/19 16 11/14/2015 CBC w/ auto diff hemoglobin 12.1 g/dL 11.5-1 5.3 normal Not Available [address], [address], 11/14/2015 16:16:06 11/12/19 16 11/14/2015 CBC w/ auto diff hematocrit 38.8 % 34.0-4 6.0 normal Not Available [address] [place], [address], 11/14/2015 16:16:11/12/19 16 11/14/2015 CBC w/ auto diff MCV 86.6 fL 78.0-9 8.0 normal Not Available [address], [address], 11/14/2015 16:16:11/12/19 16 11/14/2015 CBC w/ auto diff MCH 27.0 pg 25.0-3 5.0 normal Not Available [address], [address], 11/14/2015 16:16:11/12/19 16 11/14/2015 CBC w/ auto diff MCHC 31.1 g/dL 31.0-3 6.0 normal Not Available [address], [address], 11/14/2015 16:16:11/12/19 16 11/14/2015 CBC w/ auto diff RDW 13.1 % 11.0-1 5.0 normal Not Available [address], [address], 11/14/2015 16:16:11/12/19 16 11/14/2015 CBC w/ auto diff platelet count 221 thous and/u L 140-40 0 normal Not Available [address], [address], 11/14/2015 16:16:11/12/19 16 11/14/2015 CBC w/ auto diff MPV 9.9 fL 7.5-11 .5 normal Not Available [address], [address], 11/14/2015 16:16:06 11/12/19 16 11/14/2015 CBC w/ auto diff absolute neutrophils 2629 cells /uL 1800-8 000 normal Not Available [address] [place], [address], 11/14/2015 16:16:06 11/12/19 16 11/14/2015 CBC w/ auto diff absolute lymphocytes 2237 cells /uL 1200-5 200 normal Not Available [facility] [address] [place], [address], 11/14/2015 16:16:06 11/12/19 16 11/14/2015 CBC w/ auto diff absolute monocytes 323 cells /uL 200-90 0 normal Not Available [facility] [address] [place], [address], 11/14/2015 16:16:11/12/19 16 11/14/2015 CBC w/ auto diff absolute eosinophils 80 cells /uL 15-500 normal Not Available [facility] [address], [address], 11/14/2015 16:16:06 11/12/19 16 11/14/2015 CBC w/ auto diff absolute basophils 32 cells /uL 0-200 normal Not Available [facility] [address], [address], 11/14/2015 16:16:06 11/12/19 16 11/14/2015 CBC w/ auto diff neutrophils 49.6 % normal Not Available [facility] [address], [address], 11/14/2015 16:16:06 11/12/19 16 11/14/2015 CBC w/ auto diff lymphocytes 42.2 % normal Not Available [facility] [address] [place], [address], 11/14/2015 16:16:11/12/19 16 11/14/2015 CBC w/ auto diff monocytes 6.1 % normal Not Available [facility] [address] [place], [address], 11/14/2015 16:16:06 11/12/19 16 11/14/2015 CBC w/ auto diff eosinophils 1.5 % normal Not Available [address], [address], 11/14/2015 16:16:06 11/12/19 16 11/14/2015 CBC w/ auto diff basophils 0.6 % normal Not Available [address], [address], 11/14/2015 16:16:06 11/12/19 16 11/14/2015 C-oneyda ctive prote in, quant itati ve, serum or plasm a C-reactive protein 0.22 mg/dL <0.80 normal Pleas e be advis ed that patie nts rainain g Carbo xypen icill ins may exhib it false ly decre ased C-Oneyda ctive Prote in level s due to an josé tical inter feren ce in this assay . Not Available [address], [address], 11/14/2015 16:16:06 11/12/19 16 11/14/2015 epste in-ba rr virus (ebv) IgG + IgM panel , serum ebv viral capsid Ag (vca) Ab (IgM) 1.49 high Value Inter preta tion ----- ----- ----- ---- < or = 0.90 Negat jacky 0.91- 1.09 Equiv ocal > or = 1.10 Posit jacky Not Available [address], [address], 11/14/2015 16:16:07 11/12/19 16 11/14/2015 epste in-ba rr virus (ebv) IgG + IgM panel , serum ebv viral capsid Ag (vca) Ab (IgG) < OR = 0.90 normal Value Inter preta tion ----- ----- ----- ---- < or = 0.90 Negat jacky 0.91- 1.09 Equiv ocal > or = 1.10 Posit jacky Not Available [facility] [address] [place], [address], 11/14/2015 16:16:07 11/12/19 16 11/14/2015 [facility] + IgM panel , serum ebv nuclear Ag (ebna) Ab (IgG) < OR = 0.90 normal Value Inter preta tion ----- ----- ----- ---- < or = 0.90 Negat jacky 0.91- 1.09 Equiv ocal > or = 1.10 Posit jacky Not Available [address], [address], 11/14/2015 16:16:07 11/12/19 16 11/14/2015 epste [facility] rr virus (ebv) IgG + IgM panel , serum interpretati on: Sugge stive [facility]. Not Available [facility] [address], [address], 11/14/2015 16:16:07 04/02/20 16 04/05/2016 CMP, serum or plasm a glucose 107 mg/dL 65-99 high Fasti ng refer ence inter kylie Not Available [facility] [address], [address], 04/05/2016 16:21:29 04/02/20 16 04/05/2016 CMP, serum or plasm a urea nitrogen (BUN) 11 mg/dL 7-20 normal Not Available [facility] [address], [address], 04/05/2016 16:21:29 04/02/20 16 04/05/2016 CMP, serum or plasm a creatinine 0.59 mg/dL 0.50-1 .00 normal Patie nt is <18 years old. Unabl e to calcu late eGFR. Not Available [facility] [address], [address], 04/05/2016 16:21:29 04/02/20 16 04/05/2016 CMP, serum or plasm a BUN/creatini ne ratio NOT APPLIC ABLE (calc ) 6-22 Not Available [address], [address], 04/05/2016 16:21:29 04/02/20 16 04/05/2016 CMP, serum or plasm a sodium 139 mmol/ L 135-14 6 normal Not Available [address], [address], 04/05/2016 16:21:29 04/02/20 16 04/05/2016 CMP, serum or plasm a potassium 4.1 mmol/ L 3.8-5. 1 normal Not Available [address], [address], 04/05/2016 16:21:04/02/20 16 04/05/2016 CMP, serum or plasm a chloride 103 mmol/ L 98-110 normal Not Available [address], [address], 04/05/2016 16:21:29 04/02/20 16 04/05/2016 CMP, serum or plasm a carbon dioxide 25 mmol/ L 20-31 normal Not Available [address], [address], 04/05/2016 16:21:04/02/20 16 04/05/2016 CMP, serum or plasm a calcium 9.3 mg/dL 8.9-10 .4 normal Not Available [address], [address], 04/05/2016 16:21:04/02/20 16 04/05/2016 CMP, serum or plasm a protein, total 7.6 g/dL 6.3-8. 2 normal Not Available [address], [address], 04/05/2016 16:21:04/02/20 16 04/05/2016 CMP, serum or plasm a albumin 4.5 g/dL 3.6-5. 1 normal Not Available [address], [address], 04/05/2016 16:21:29 04/02/20 16 04/05/2016 CMP, serum or plasm a globulin 3.1 g/dL_ (calc ) 2.0-3. 8 normal Not Available [address], [address], 04/05/2016 16:21:29 04/02/20 16 04/05/2016 CMP, serum or plasm a albumin/glob ulin ratio 1.5 (calc ) 1.0-2. 5 normal Not Available [address], [address], 04/05/2016 16:21:29 04/02/20 16 04/05/2016 CMP, serum or plasm a bilirubin, total 0.3 mg/dL 0.2-1. 1 normal Not Available [address], [address], 04/05/2016 16:21:29 04/02/20 16 04/05/2016 CMP, serum or plasm a alkaline phosphatase 54 U/L 47-176 normal Not Available [facility] [address], [address], 04/05/2016 16:21:29 04/02/20 16 04/05/2016 CMP, serum or plasm a AST 18 U/L 12-32 normal Not Available [address], [address], 04/05/2016 16:21:29 04/02/20 16 04/05/2016 CMP, serum or plasm a ALT 11 U/L 5-32 normal Not Available [address], [address], 04/05/2016 16:21:29 04/02/20 16 04/05/2016 CBC w/ auto diff white blood cell count 5.0 thous and/u L 4.5-13 .0 normal Not Available [address], [address], 04/05/2016 16:21:30 04/02/20 16 04/05/2016 CBC w/ auto diff red blood cell count 4.55 kwasi on/uL 3.80-5 .10 normal Not Available [address], [address], 04/05/2016 16:21:30 04/02/20 16 04/05/2016 CBC w/ auto diff hemoglobin 12.4 g/dL 11.5-1 5.3 normal Not Available [address], [address], 04/05/2016 16:21:30 04/02/20 16 04/05/2016 CBC w/ auto diff hematocrit 39.3 % 34.0-4 6.0 normal Not Available [address], [address], 04/05/2016 16:21:30 04/02/20 16 04/05/2016 CBC w/ auto diff MCV 86.3 fL 78.0-9 8.0 normal Not Available [address], [address], 04/05/2016 16:21:30 04/02/2004/05/2016 CBC w/ auto diff MCH 27.2 pg 25.0-3 5.0 normal Not Available [address], [address], 04/05/2016 16:21:30 04/02/20 16 04/05/2016 CBC w/ auto diff MCHC 31.5 g/dL 31.0-3 6.0 normal Not Available [address], [address], 04/05/2016 16:21:30 04/02/20 16 04/05/2016 CBC w/ auto diff RDW 13.9 % 11.0-1 5.0 normal Not Available [address], [address], 04/05/2016 16:21:30 04/02/20 16 04/05/2016 CBC w/ auto diff platelet count 265 thous and/u L 140-40 0 normal Not Available [address], [address], 04/05/2016 16:21:30 04/02/20 16 04/05/2016 CBC w/ auto diff MPV 9.9 fL 7.5-11 .5 normal Not Available [address], [address], 04/05/2016 16:21:30 04/02/20 16 04/05/2016 CBC w/ auto diff absolute neutrophils 2395 cells /uL 1800-8 000 normal Not Available [address], [address], 04/05/2016 16:21:30 04/02/20 16 04/05/2016 CBC w/ auto diff absolute lymphocytes 2140 cells /uL 1200-5 200 normal Not Available [address], [address], 04/05/2016 16:21:30 04/02/20 16 04/05/2016 CBC w/ auto diff absolute monocytes 290 cells /uL 200-90 0 normal Not Available [address], [address], 04/05/2016 16:21:30 04/02/20 16 04/05/2016 CBC w/ auto diff absolute eosinophils 140 cells /uL 15-500 normal Not Available [address], [address], 04/05/2016 16:21:30 04/02/20 16 04/05/2016 CBC w/ auto diff absolute basophils 35 cells /uL 0-200 normal Not Available [address], [address], 04/05/2016 16:21:30 04/02/20 16 04/05/2016 CBC w/ auto diff neutrophils 47.9 % normal Not Available [address], [address], 04/05/2016 16:21:30 04/02/20 16 04/05/2016 CBC w/ auto diff lymphocytes 42.8 % normal Not Available [address], [address], 04/05/2016 16:21:30 04/02/20 16 04/05/2016 CBC w/ auto diff monocytes 5.8 % normal Not Available [address], [address], 04/05/2016 16:21:30 04/02/20 16 04/05/2016 CBC w/ auto diff eosinophils 2.8 % normal Not Available [address], [address], 04/05/2016 16:21:30 04/02/20 16 04/05/2016 CBC w/ auto diff basophils 0.7 % normal Not Available [address], [address], 04/05/2016 16:21:30 04/02/20 16 04/05/2016 epste in-ba rr virus (ebv) IgG + IgM panel , serum ebv viral capsid Ag (vca) Ab (IgM) < OR = 0.90 normal Value Inter preta tion ----- ----- ----- ---- < or = 0.90 Negat jacky 0.91- 1.09 Equiv ocal > or = 1.10 Posit jacky Not Available [address], [address], 04/05/2016 16:21:30 04/02/20 16 04/05/2016 epste in-ba rr virus (ebv) IgG + IgM panel , serum ebv viral capsid Ag (vca) Ab (IgG) 3.64 high Value Inter preta tion ----- ----- ----- ---- < or = 0.90 Negat jacky 0.91- 1.09 Equiv ocal > or = 1.10 Posit jacky Not Available [address], [address], 04/05/2016 16:21:30 04/02/20 16 04/05/2016 epste in-ba rr virus (ebv) IgG + IgM panel , serum ebv nuclear Ag (ebna) Ab (IgG) 4.28 high Value Inter preta tion ----- ----- ----- ---- < or = 0.90 Negat jacky 0.91- 1.09 Equiv ocal > or = 1.10 Posit jacky Not Available [address], [address], 04/05/2016 16:21:30 04/02/20 16 04/05/2016 epste in-ba rr virus (ebv) IgG + IgM panel , serum interpretati on: Sugge stive of a past Epste in-Ba rr virus infec tion. In infan ts, a domeincoil renée prince rn may occur as a resul t of passi ve mater nal trans gomez of antib william. Not Available [address] [place], [address], 04/05/2016 16:21:30 04/02/20 16 04/02/2016 cherelle schmidt am No observ ation record ed. [email or web address] Not Available 2015 17:40:25 04/05/20 16 04/02/2016 XR, chest , 2 view No observ ation record ed. [email or web address] Not Available 2015 13:42:59 04/06/20 16 04/02/2016 XR, chest , 2 view No observ ation record ed. [email or web address] [facility] [address] [facility] [place], [address], 04/06/2016 18:36:00 07/01/20 16 06/28/2016 CT, abdom en, w/o contr ast No observ ation record ed. [email or web address] Not Available 2015 17:14:09 Result Notes None recorded. Problems Name Problem SNOMED Code Status Onset Date Resolution Date Notes Provider Name and Address Organization Details Recorded Time Abdominal pain 48605456 Completed 10/18/2014 Mata Casiano MD [address] [place] [address], [address], [facility], 5 12:44:48 Viral syndrome 791975519 Completed 10/18/2014 Mata Casiano MD [address] [place] [address], [address], [facility], 5 12:44:48 Viral infection by site Completed 10/18/2014 Mata Casiano MD [address] [place] [address], [address], [facility], 5 12:44:48 Dizziness and giddiness 711578747 Completed 10/18/2014 Mata Casiano MD [address] [place] [address], [address], [facility], 5 12:44:48 Contact dermatitis 47395077 Completed 10/18/2014 Mata Casiano MD [address] [place] [address], [address], [facility], 5 12:44:48 Influenza with respiratory manifestati on other than pneumonia Completed 10/18/2014 Mata Casiano MD [address] [place] [address], [address], [facility], 5 12:44:48 Fibromyosit is 21349286 Completed 10/18/2014 Mata Casiano MD [address], [address], [facility], 5 12:44:48 Orthostatic hypotension 61897444 Completed 10/18/2014 Mata Casiano MD [address], [address], [facility], 5 12:44:48 Acute pharyngitis 886346114 Completed 10/18/2014 Mata Casiano MD [address], [address], [facility], 5 12:44:48 Backache 746477511 Completed 10/18/2014 Mata Casiano MD [address], [address], [facility], 5 12:44:48 Pain in limb 82583244 Completed 10/18/2014 Mata Casiano MD [address], [address], [facility], 5 12:44:48 Depressive disorder 30517641 Active Mata Casiano MD [address], [address], [facility], 6 15:33:51 Folliculiti s 53823948 Completed 10/18/2014 Mata Casiano MD [address], [address], [facility], 5 12:44:48 Viral disease 86426653 Completed 10/18/2014 Mata Casiano MD [address], [address], [facility], 5 12:44:48 Streptococc al sore throat 91674386 Completed 11/12/2015 ERAN Stone [address], [address], [facility], 6 15:00:22 Bacterial folliculiti s 556844391 Active Mata Casiano MD [address] [facility] [address], [place], [address], [facility], 5 12:45:19 Hypertrophy of tonsils 36798615 Active PARRISH YAÑEZFPDavid [address] [facility] [address], [place], [address], [facility], 5 14:15:29 Acute chest pain 492151783 Completed 201504/02/2016 [facility] 6 11:36:16 Problem Notes None recorded. Procedures Surgical History Date Name Laterality Status Provider Name and Address Organization Details Recorded Time 6 Nebulizer tx completed Mary Tucker [facility], 04/20/2016 16:59:33 Imaging Results Imaging Date Name Status LastModified by Organization Details LastModified Time 04/02/2016 electrocardiogram completed [email or web address] Informa tion not available 04/02/2016 17:40:25 04/02/2016 XR, chest, 2 view completed [email or web address] Informa tion not available 04/05/2016 13:42:59 04/02/2016 XR, chest, 2 view completed [email or web address] [place], [address], 04/06/2016 18:36:00 06/28/2016 CT, abdomen, w/o contrast completed [email or web address] Information not available 07/02/2016 17:14:09 Procedure Notes None recorded. Medical Equipment None Reported. Allergies No known drug allergies Medications Name Sig Start Date Stop Date Status Note LastModified by Organization Details LastModified Time amoxicillin 500 mg capsule 06/09 completed Not Available Not Available Not Available promethazin e-DM 6.25 mg-15 mg/5 mL oral syrup active Not Available Not Available Not Available clindamycin HCl 300 mg capsule Take 1 capsule every 6 hours by oral route for 10 days. 11/24 completed Not Available Not Available Not Available fluconazole 150 mg tablet 06/09 completed Not Available Not Available Not Available hydrocodone 5 mg-acetamin ophen 325 mg tablet 06/09 completed Not Available Not Available Not Available prednisone 20 mg tablet Take 3 tablets every day by oral route for 5 days. 11/24 completed Not Available Not Available Not Available Tamiflu 75 mg capsule Take 1 capsule twice a day by oral route for 5 days. active Not Available Not Available No t Available tramadol 50 mg tablet 06/09 completed Not Available Not Available Not Available oxycodone-a cetaminophe n 5 mg-325 mg tablet active Not Available Not Available No t Available amoxicillin 875 mg tablet Take 1 tablet every 12 hours by oral route for 10 days. active Not Available Not Available No t Available estradiol 1 mg tablet 04/02 completed Not Available Not Available Not Available cephalexin 500 mg capsule active Not Available Not Available Not Available hyoscyamine sulfate 0.125 mg tablet active Not Available Not Available Not Available ranitidine 150 mg tablet 1 tab BID 06/09 completed Not Available Not Available Not Available lansoprazol e 30 mg capsule,del ayed release active Not Available Not Available Not Available sertraline 25 mg tablet Take 1 tablet every day by oral route for 7 days. 04/02 completed Not Available Not Available Not Available cephalexin 500 mg tablet Take 1 tablet twice a day by oral route for 10 days. 01/31 completed Not Available Not Available Not Available mupirocin 2 % topical ointment APPLY TO THE AFFECTED AREA TWICE DAILY UNTIL GONE active Not Available Not Available No t Available ibuprofen 600 mg tablet active Not Available Not Available Not Available ondansetron 4 mg disintegrat ing tablet active Not Available Not Available N ot Available cefdinir 300 mg capsule Take 1 capsule twice a day by oral route for 10 days. active Not Available Not Available No t Available sertraline 50 mg tablet TAKE 1 TABLET BY MOUTH DAILY active Not Available Not Available No t Available naproxen 500 mg tablet active Not Available Not Available Not Available escitalopra m 10 mg tablet TAKE 1 TABLET BY MOUTH DAILY active Not Available Not Available No t Available escitalopra m 20 mg tablet TAKE 1 TABLET BY MOUTH EVERY DAY DIRECTED FOR 30 DAYS. 04/02 completed Not Available Not Available Not Available escitalopra m 5 mg tablet TAKE ONE TABLET BY MOUTH EVERY DAY FOR 7 DAYS, THEN INCREASE TO TWO TABLETS BY MOUTH EVERY DAY active Not Available Not Available No t Available nitrofurant oin monohydrate /macrocryst als 100 mg capsule active Not Available Not Available Not Available ProAir HFA 90 mcg/actuati on aerosol inhaler Inhale 2 puffs every 4 hours by inhalatio n route as needed. active Not Available Not Available No t Available Quasense 0.15 mg-30 mcg (91) tablets,3 month dose pack 06/09 completed Not Available Not Available Not Available tretinoin 0.05 % topical gel active Not Available Not Available Not Available Acanya 1.2 %-2.5 % topical gel active Not Available Not Available Not Available Se-Bharti 19 (with docusate) 29 mg iron-1 mg-25 mg tablet active Not Available Not Available Not Available BenzEFoam 5.3 % topical active Not Available Not Available Not Available Lo Loestrin Fe 1 mg-10 mcg (24)/10 mcg (2) tablet 06/09 completed Not Available Not Available Not Available Vitals Date Recorded Heart rate Body temperature Respiratory rate Body weight Systolic blood pressure Diastolic blood pressure Provider Name and Address Organization Details Last Updated DateTime 6 120 /min 97.59 [degF] 16 /min 84749.6 6 g 110 mm[Hg] 68 mm[Hg] ERAN Stone [address], [address], 6 16:43:31 Date Recorded Oxygen saturation Oxygen saturation in Arterial blood by Pulse oximetry Body weight Heart rate Respiratory rate Systolic blood pressure Diastolic blood pressure Provider Name and Address Organization Details Last Updated DateTime 6 100 % 100 % 85126.6 6 g 96 /min 20 /min 120 mm[Hg] 88 mm[Hg] ERAN Stone [address], [address] [place] [address] [facility], 6 10:53:29 Date Recorded Heart rate Respiratory rate Body height Body weight Body mass index (BMI) Systolic blood pressure Diastolic blood pressure Provider Name and Address Organization Details Last Updated DateTime 6 88 /min 16 /min 165.1 cm 22250.4 5 g 20.6 kg/m2 104 mm[Hg] 68 mm[Hg] Romana Valerio [facility], 6 09:14:08 Date Recorded Body height Body weight Body mass index (BMI) Heart rate Respiratory rate Body temperature Systolic blood pressure Diastolic blood pressure Provider Name and Address Organization Details Last Updated DateTime 6 165.1 cm 51022.2 3 g 21.1 kg/m2 90 /min 20 /min 99.9 [degF] 112 mm[Hg] 70 mm[Hg] Bertha Tej [facility], 6 17:10:23 Date Recorded Body height Body mass index (BMI) Body weight Heart rate Respiratory rate Body temperature Systolic blood pressure Diastolic blood pressure Provider Name and Address Organization Details Last Updated DateTime 7 165.1 cm 23.3 kg/m2 49290.9 3 g 100 /min 20 /min 98.8 [degF] 118 mm[Hg] 66 mm[Hg] Bertha Burnham [facility], 7 17:09:23 Social History Question Answer Notes LastModified by Organizat ion Details LastModified Time Tobacco Smoking Status Never Smoker Not Available [facility] 05/06/2020 03:10:52 Animal Exposure? Yes 2 Dogs 1 Cat Information not available 06/19/2012 Are There Any Guns Present In Your Home? No [id number] Information not available 05/06/2020 What Is Your Home Situation? Both Parents [id number] Information not available 05/06/2020 Do You Use Insect Repellent Routinely? Yes [id number] Information not available 05/06/2020 What Is Your Parents' Marital Status? [id number] Information not available 05/06/2020 What Is The Name Of Your School? [employer] [id number] Information not available 05/06/2020 Do You Use Your Seat Belt Or Car Seat Routinely? Yes [id number] Information not available 05/06/2020 Do You Have Any Siblings? 6 Only 1 At Home [id number] Information not available 05/06/2020 Do You Have Smoke And Carbon Monoxide Detectors In Your Home? Yes [id number] Information not available 05/06/2020 Are You Passively Exposed To Smoke? No Information not available 06/19/2012 What Types Of Sporting Activities Do You Participate In? Volleyball [id number] Information not available 05/06/2020 Do You Use Sunscreen Routinely? Yes [id number] Information not available 05/06/2020 Year In School 8 Informtitio n not available 06/19/2012 Sex: Unknown Functional Status None recorded. Mental Status None recorded. Family History Nothing Reported. Medical History Condition Response Asthma / Wheezing N Concerns with Hearing or Vision N Other Developmental Delay N Frequent Ear Infections N Murmur / Cardiac N Serious Injuries N History of UTI N ER or UC Visits Y Nasal Allergies N Frequent Headaches N Hospitalizations N ADD or ADHD N Broken bones N ear or hearing problems N Constipation N Albuterol / Nebulizer N Diabetes N Bedwetting N Skin problems N Allergies N Sleep Problems / Snoring N Gynecological HistoryNo gynecological history recorded. Obstetrics History GPAL:G 0 P 0 0 0 0 Immunizations Vaccine Type Date Status Note Provider Nam e and Address Organization Details Recorded Time Hib, unspecified formulation 9 completed [place] [facility], 12/14/2011 12:37:54 DTP 9 completed [place] [facility], 12/14/2011 12:37:54 MMR 4 completed [place] [facility], 12/14/2011 12:37:54 DTP 9 completed [place] [facility], 12/14/2011 12:37:54 DTP 9 completed [place] [facility], 12/14/2011 12:37:54 MMR 0 completed [place] [facility], 12/14/2011 12:37:54 Hep B, unspecified formulation 9 completed [place] [facility], 12/14/2011 12:37:54 polio, unspecified formulation 9 completed [place] [facility], 12/14/2011 12:37:54 DTP 0 completed [place] [facility], 12/14/2011 12:37:54 Hib, unspecified formulation 9 completed [place] [facility], 12/14/2011 12:37:54 Hib, unspecified formulation 3 completed [place] [facility], 12/14/2011 12:37:54 Hep B, unspecified formulation 9 completed [place] [facility], 12/14/2011 12:37:54 Hep B, unspecified formulation 9 completed [place] [facility], 12/14/2011 12:37:54 IPV 4 completed [place] [facility], 12/14/2011 12:37:54 DTaP 4 completed [place] [facility], 12/14/2011 12:37:54 Hib, unspecified formulation 9 completed [place] [facility], 12/14/2011 12:37:54 polio, unspecified formulation 9 completed [place] [facility], 12/14/2011 12:37:54 Influenza, live, trivalent, intranasal 8 completed [place] [facility], 12/14/2011 12:40:18 IPV 3 completed [place] [facility], 12/14/2011 12:45:43 varicella 0 completed Not Available [facility] 05/26/2011 06:14:34 Tdap 0 completed Not Available [facility] 05/26/2011 06:13:51 meningococcal ACWY, unspecified formulation 0 completed Not Available [facility] 05/26/2011 06:13:51 Influenza, split virus, quadrivalent, PF 6 completed Not Available [facility] 07/28/2019 02:12:45 Hep A, ped/adol, 2 dose 2 completed Not Available [facility] 07/28/2019 02:11:59 varicella 2 completed Not Available [facility] 07/28/2019 02:11:53 Influenza, live, trivalent, intranasal 12/10/201 2 completed Not Available [facility] 07/28/2019 02:12:23 Past Encounters Encounter ID Performer Location Encounter Start Date Encounter Closed Date Diagnosis/Indication Diagnosis SNOMED-CT Code Diagnosis ICD10 Code Diagnosis Note [id number] Mata Casiano [facility] [place] [address] 01/22/2010 12:33:49 01/22/2010 12:34:52 [id number] Mata Casiano [facility] [place] [address] 09/13/2011 13:20:02 09/15/2011 14:12:44 [id number] Mata Casiano MD [facility] [place] [address] 09/24/2011 17:26:38 09/28/2011 11:06:38 [id number] ERAN LENTZ [facility] [place] [address] 03/14/2012 14:43:09 03/16/2012 11:37:39 [id number] ERAN [facility]ENTZ [facility] [place] [address] 06/19/2012 11:07:28 06/20/2012 10:48:28 [id number] ERAN LENTZ [facility] [place] [address] 06/26/2012 16:04:26 06/27/2012 14:44:53 [id number] Mata Casiano MD [facility] [place] [address] 10/05/2012 09:48:20 10/06/2012 09:51:25 [id number] ERAN LENTZ [facility] [place] [address] 01/02/2013 15:55:07 01/05/2013 10:47:40 [id number] AMADEO YAÑEZ [facility] [place] [address] 02/05/2013 17:36:42 02/06/2013 14:11:16 [id number] Mata Casiano [facility] [address] [place] [address] [facility] [place] [address] 03/30/2013 16:55:14 04/03/2013 12:31:22 [id number] Mata Casiano [facility] [address] [place] [address] [employer] [place] [address] 04/19/2013 15:32:22 04/23/2013 12:39:26 [id number] Mata Casiano [facility] [address] [place] [address] [employer] [place] [address] 08/20/2013 13:46:32 08/21/2013 11:35:16 Abdominal pain 63202820 Viral syndrome [id number] Mata Casiano [facility] [address] [place] [address] [employer] [place] [address] 11/02/2013 13:50:21 11/03/2013 09:44:41 Depressive disorder 60907270 [id number] Henrietta Carlson [facility] [address] [place] [address] [employer] [place] [address] 01/21/2014 12:26:53 01/24/2014 10:07:35 Folliculitis 67044168 [id number] Henrietta Carlson [facility] [address] [place] [address] [employer] [place] [address] 08/13/2014 14:17:01 08/15/2014 10:48:20 Acute pharyngitis 454616836 [id number] Henrietta Carlson [facility] [address] [place] [address] [employer] [place] [address] 08/22/2014 16:14:49 08/23/2014 15:11:55 Viral disease 68192892 [id number] Mata Casiano MD [facility] [address] [place] [address] [facility] [place] [address] 10/08/2014 10:49:36 10/10/2014 10:10:15 Acute pharyngitis 654105444 [id number] Mata Casiano [facility] [address] [place] [address],[address] [place] [address] 10/18/2014 11:18:13 10/19/2014 10:06:49 Streptococcal sore throat 19386261 Bacterial folliculitis 300685289 Fever 297542106 [id number] Mata Casiano MD [facility] [address] [place], [place] [address] [place] [address] 12/06/2014 14:43:15 12/07/2014 09:59:18 Depressive disorder 13271273 [id number] Mata Casiano MD [facility] E [address] [place] [address] [address] [place] [address] 06/20/2015 12:05:22 06/20/2015 16:59:46 Hypertrophy of tonsils 07604758 J35.1 Depressive disorder 3548 9007 F32.9 [id number] Mata Casiano MD [address] [place] [address] 09/01/2015 14:21:49 09/02/2015 11:31:24 Depressive disorder 15690685 F33.2 [id number] Henrietta Carlson MD [facility] E [address] [place] [address],[address] [place] [address] 11/12/2015 14:48:03 11/13/2015 16:47:23 Lymphadenopathy 43787164 R59.0 Lewis- discussed dx/course/ sx treatment. Abscess discussed- with intention to treat until CBC results obtained.N o sports or rough activity. Patient to return in 2 days.. Call for any severe or worrisome symptoms. [id number] Mata Casiano MD [facility] E [address] [place] [address],[address] [place] [address] 11/14/2015 11:16:01 11/15/2015 09:57:12 Infectious mononucleosis 025462636 B27.90 Mononucleo sis- Continue rest and encourage fluids. Discussed starting steroid burst for throat pain/edema . Swallowing ok. Continue no sports or gym for 4-6 weeks until released. Tylenol or ibuprofen for fever/disc omfort. RTC for worsening symptoms. CBC WNL, but as clindamyci n was started for concern for lymphadeni tis, would continue. [id number] Mata Casiano MD [facility] E [address] [place] [address],[facility] [address] [place] [address] 11/25/2015 16:33:08 11/27/2015 12:01:48 Papular eruption 484718321 R21 Likely viral in origin, should be self-limit ing. Avoid an irritants to face. Call with new or concerning symptoms. [id number] Henrietta Carlson MD [facility] E [address] [place] [address],[facility] [address] [place] [address] 04/02/2016 10:48:05 04/09/2016 15:30:12 Acute chest pain 407146497 R07.9 CXR negative. EKG Normal. Education given to Mom. Epigastric pain 97525978 R10.13 GERD. Patient symptoms resolved after initial dose of nexium sample given in office today.Educ ation given. Follow up in one week. Wheezing 49132124 R06.2 Expiratory wheezing noted on exam. Improved with nebulizer treatment. Discussed wheezing/a nxiety. Education given. Follow up in one week. [id number] Mata Casiano MD [facility] E [address] [place] [address],[address] [address] 05/10/2016 09:03:30 05/11/2016 10:07:24 Depressive disorder 56888527 F33.2 Vast improvemen t in her PHQ-9, but remains with multitude of somatic complaints . Discussed possibilit y of somatic symptom disorder. Recommende d daily exercise, getting a job or volunteer opportunit y. Encouraged that she has applied to [facility]. Refilling her sertraline for 6mo. RTC early 2017 for recheck. Diet poor 367919222 Z72. 4 Horrendous intake of only guacamole, chips and lettuce. Recommende d MVI with iron daily and improved diet. Influenza vaccine needed [id number] 106 Z23 I discussed with the parent the vaccines ordered below that the patient is to receive today; all questions were answered and the informatio nal handout(s) was/were given. [id number] Henrietta Carlson MD [facility] [address] [place] [address],[facility] [address] [place] [address] 06/29/2016 17:03:15 07/01/2016 12:07:48 Abdominal pain 12994992 R10.30 Etiologies include:CORNELIUS BARKER - urine from lasa night only showed some bloodfunct ional abdominal painGyncec ological issues - ie , endometrio sisPossibl e appendicit isRepeat CBCGenprob e Repeat UAsed rate and CRP If CBC is unchanged, will await results of genprobe. Do not want to necessaril y repeat a ct scan of the abdomen since she just had one yesterday. Patient and father were given results of CBC (Unchanged ), UA - which was clean), and normal CRP and sed rateWill await genprobe studies before proceding further; patient also has appt in 2 [facility] at [facility] [id number] MARY TUCKER [facility] [address] [place] [address] 06/09/2017 17:00:40 06/09/2017 17:46:00 Health Concerns Section Related Observation LastModified by Organization Detai ls LastModified Time None Recorded Concern Status LastModified by Organization Details LastModified Time None Recorded Advance Directives Directive None Recorded Payers Encounter Date Sequence Insurance Name Policy Number Policy Hernandez Covered Member ID Hernandez Member ID Guarantor Name 11/25/2015 1 [place] [id number] Liudmila Fierro [id number] Shonadavid Fierro 04/02/2016 1 [place] [id number] Liudmila [id number] Shonadavid Fierro 05/10/2016 1 [place] [id number] Liudmila [id number] Shonadavid Fierro 06/29/2016 1 [place] [id number] Liudmila [id number] Shona Fierro 06/09/2017 1 [place] [id number] Liudmila Fierro [id number] Shona Kari Fierro Notes Date Note Type Note Provider Name and Address Organization Details Recorded Time 11/25/2015 text/html Rash/Skin LesionReported bypatient.Location:fac e; chest; back Quality:not painful;itchy;red;mult iple Onset/Timing:abrupt onset (2 days ago woke up with rash) Context:no new detergents or skin products; no one else with similar rash; dx'd with mono approx 1 week ago Associated Symptoms:no fever; no cold symptoms; no nausea; no vomiting; no diarrhea; no urinary symptomsNotes:Here with father BRIANNE THURSTON, PHOTO INTERN-[address], [place], [address], [facility], 11/25/2015 17:55:15 04/02/2016 text/html Angina/Chest PainReported bypatient.Location:[facility] (feels like someone is sitting on her chset and also has sharp pains shooting upward.) Quality:heaviness;osiris p Severity:very limiting Duration:Episode of chest pain started today around 8-8:30. Approx 1 month ago, had a similar episode. Was home by herself. Took a few hours to resolve. Associated Symptoms:chest discomfort;shortness of breath(minimal);dizzin ess;lightheadednessNot es:Here with mother Mary hilario, [facility], 04/20/2016 16:59:40 05/10/2016 text/html Generic HPI TemplateReported bypatient.Location:Her e for 1 month f/u of depression. States she is doing well on meds but is nervous to stop the med because she is afraid sx of depression will return. Context:Applied to [facility] for winter admission and waiting to hear. Currently no job, no school, and no volunteer activities or exercise. Watches TV all day. Associated Symptoms:Stomach complaints, severe cramps with periods, not using any control, c/oankle swelling with much walking. 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 Current diet consists of only guac and chips, lettuce and water. Denies any other fruits/veg/protein/dri nks.Notes:Denies any SI/HISleeping 5 or 6pm to 2 or 3 am. C/o feeling tired. Not napping. Mata Casiano MD [address], [place], [address], [facility] 05/10/2016 10:21:45 06/29/2016 text/html Abdominal PainRe ported byparent.Location:[facility] Quality:pain;sharp Duration:started yesterday around 8pm Context:was in ER yesterday with ruptured cyst on left ovary ( diagnosis made from fact that there was some fluid in the culdesac); now having right sided pain; has had lower abdominal pain for past several months - has an appt with GYNE in a couple of weeks. Modifying Factors:taking Vicodin Associated Symptoms:no fever (but now is 99.9); no chills; no blood in the urine; no heartburn; no shortness of breath;decreased appetite; no vomiting - had a soft stool today Other:sexually active; had protected sex 3 weeks ago. Had a normal Renal stone CT last evening in ER and a normal pelvic ultrasound' normal CBCNotes: I also have reviewed prior office visit notes Henrietta Carlson MD [address], [place], [address], [facility] 06/30/2016 22:36:59 06/09/2017 text/html Anxiety/Depressi onRepo rted bypatient.Severity:den ies suicidal ideations Context:major life stressors(pt is currently 22 weeks ) Associated Symptoms:anxiety;depre ssion; Shona says Zoloft has helped improve her symptoms of anxiety and depression.Notes: Lona Arroyo [facility], 06/09/2017 17:45:58 OBGyn Episode No OBEpisode recorded.
--- OUTSIDE RECORDS SUMMARY | 2024-11-10 15:43 | XMS_ITS | Clinical Summary ---
Author Organization [facility] Address [address] [place] [address] Care Team Providers Care P 3 Armament/Ordnance Ima Technician Name Role Phone Salty Gordon MD Primary Care Provider [phone] Source Comments [facility],non-owned Affiliates and Associated Physician Practices is amultiple site organization consisting of ambulatory clinics and hospital sitesin [place], [place] and [place]. This disclosure is being madepursuant to the Care Everywhere program and may not contain all information available regarding this patient. Last updated 18.[employer] [facility] Allergies No known active allergies Medications * Be aware that medications may not be up to date on this document. Alwaysverify current medications with the patient. No known medications Social History Tobacco Use Types Packs/Day Years Used Date Smoking Tobacco: Never Smokeless Tobacco: Never Tobacco Cessation:Counseling Given: Not Answered AUDIT-C Answer Date Recorded Q1: How often do you have a drink containing alc ohol? Never 08/14/2022 Average Number of Drinks Not on file 023 Frequency of Binge Drinking Not on file 10/2022 Comments No Sex and Gender Information Value Date Recorded Sex Assigned at Not on file Legal Sex Female 4:31 AM CDT Gender Identity Not on file Sexual Orientation Not on file Last Filed Vital Signs Vital Sign Reading Time Taken Comments Blood Pressure 107/73 08/14/2022 2:[address] Pulse 135 08/14/2022 2:[address] Temperature 36.9 C (98.5 F) 08/14/2022 2:[address]IVER Respiratory Rate 24 08/14/2022 2:[address]IVER Oxygen Saturation 98% 08/14/2022 2:[address] Inhaled Oxygen Concentration - - Weight 83.8 kg (184 lb 11.9 oz) 08/14/2022 8:[address]IVER Height 162.6 cm (5' 4 ) 08/14/2022 8:[address] Body Mass Index 31.71 08/14/2022 8:[address] Plan of Treatment Health Maintenance Due Date Last Done Comments PAP SMEAR 1998 HIV SCREENING 2013 HPV VACCINE (1 - 3-dose series) 2013 CHLAMYDIA/GONORRHEA SCREENING 2014 HEPATITIS C SCREENING 11/12/2016 DTAP/TDAP/TD VACCINES (1 - Tdap) 2017 HEPATITIS B VACCINE (1 of 3 - 19+ 3-dose series) 2017 COVID-19 VACCINE (1 - 2023-2 5 season) 2024 DEPRESSION SCREENING 07/11/2024 INFLUENZA VACCINE (Season Ended) 2025 06/08/2018, 05/10/2016 ZOSTER VACCINE (1 of 2) 2048 HIB VACCINE Aged Out No longer eligi ble based on patient's age to complete this topic MENINGOCOCCAL (Group B) VACCINE SHARED DECISION-MAKING Aged Out No longer eligible based on patient's age to complete this topic MENINGOCOCCAL GROUPS A/C/Y/W VACCINE Aged Out No longer eligible b ased on patient's age to complete this topic PNEUMOCOCCAL VACCINE Aged Out No long er eligible based on patient's age to complete this topic Insurance [facility] MEDICAID Care Teams P 3 Armament/Ordnance Ima Technician Relationship Specialty Start Date End Date Salty Gordon MD [address] [place] [address] PCP - General Internal Medicine 08/06/22
--- OUTSIDE RECORDS SUMMARY | 2024-11-10 15:43 | XMS_ITS | Clinical Summary ---
Author Organization [facility] Address [address] [place] [address] Care Team Providers Care Kosher Dietary Service Manager Name Role Phone Salty Gordon MD Primary Care Provider [phone] Allergies No known active allergies Medications sertraline (ZOLOFT) 50 mg tablet Take 50 mg by mouth daily. 6 Active prenat.vits,bill, vqz-kwzj-rqcgc ( VITAMIN) tablet Take by mouth daily. [...] Polio, Unspecified 03/20/1999,01/20/1999 Tdap 10/13/2017,01/22/2010 Varicella 06/19/2012,01/22/2010 Surgical History Surgery Date Site/Laterality Comments EXPLORATORY LAPAROTOMY just did a laprascopy and removed scar tissue Medical History Medical History Date Comments Urinary tract infection last paulina ated a couple months ago Anemia takes iron slow release Depression since 2012 or 14; takes medication Endometriosis had some scar ti ssue removed Family History Medical History Relation Name Comments Thyroid disease Father Relation Name Status Comments Father Alive Mother Alive Social History Tobacco Use Types Packs/Day Years [...] on file 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 Gender Identity Not on file Sexual Orientation Not on file Obstetrics History Para Term AB IAB SAB Ectopic Multiple Livin g Live Births 1 1 1 0 1 1 Date Outcome GA Total Labor Labor/2nd/3rd Weight Sex Type Anes PTL Tia A1 A5 Name Clin 018 Term 39w 1d 0h 04m 0h 04m 3.489 kg (7 lb 11.1 oz) F CS-LT ranv Spinal N Livin g 8 9 HAWK ,GIRL SIERR A Thib Zachary pro MD Complications:Failure to Pro christine in First Stage Delivery Location:This Facil ity ([facility]) Last Filed Vital Signs Vital Sign Reading [...] 01/29/2023 10:40 PM CDT Plan of Treatment Health Maintenance Due Date Last Done Comments Cervical Cancer Screening 1998 HPV Vaccines (1 - 3-dose series) 2013 Regular Well Visit/Exam 18-64 2016 Depression Screening 08/03/2022 08/03/2021, 06/08/2018, 09/27/2017 Influenza Vaccine (#1) 2024 8, 05/10/2016, 06/19/2012, Additional history exists DTaP/Tdap/Td Vaccine (8 - Td or Tdap) 10/14/2027 10/13/2017, 01/22/2010, 11/07/2003, Additional history exists Hepatitis B Screening Completed 06/20/1999 , 03/20/1999, 01/20/1999 Varicella Vaccines Completed 06/19/2012, 01/22/2010 Hepatitis C Screening Completed 04/06/2017 Pneumococcal vaccine <65 Aged Out No longer eligible based on patient's age to complete this topic Procedures Procedure Name Priority Date/Time Associated Diagnosis Comments HEPATITIS C ANTIBODY Routine 04/06/2017 from Last 3 Months or Most Recently Relevant to Health Maintenance Results * Hepatitis C antibody (04/06/2017) SCRIBED HCV ab Non-Reacti ve Blood specimen (specimen) Zachary Valdivia MD LAB MICROBIOLOGY - GENERAL OR DERABLES Final Result from Last 3 Months or Most Recently Relevant to Health Maintenance Insurance [employer] [facility] Address: [place] [address] [employer] ACCESS CHOICE ACCESS PA ANTH ACCESS ANTH ACCESS Advance Directives For more information, please contact: [phone] * Full Code (Latest Code Status on File) Date Activated Date Inactivated Comments 10/11/2017 4:27 PM 10/14/2017 11:53 PM * Full Code Date Activated Date Inactivated Comments 10/10/2017 4:36 PM 10/11/2017 4:27 PM Full CPR in ca se of cardiopulmonary arrest Care Teams Kosher Dietary Service Manager Relationship Specialty Start Date End Date Salty Gordon MD [address] [place] [address] PCP - General Family Medicine 08/11/22
--- OUTSIDE RECORDS SUMMARY | 2024-11-10 15:43 | XMS_ITS | Clinical Summary ---
Author Organization [facility] Address [address] [facility], [facility] [address] [place] [address] Phone Care Team Providers Care Traveling Accountant Name Role Phone Rachel Casiano MD Primary Care Provider [phone] Norma Lockwood APRN, PULP DRIER FIRER Unavailable [phone] Allergies No known active allergies Medications sertraline (ZOLOFT) 50 MG Tablet Take 50 mg by mouth daily. 6 Active aluminum & magnesium hydroxide-simet hicone (RULOX) 200-200-20 MG/5ML Suspension Take 30 mL by mouth every 6 hours as needed. Active hyoscyamine (LEVSIN) 0.125 MG Tablet Take 1 Tab by mouth every 4 hours as needed for Cramping. 120 Tab 3 7 Active Additional Information Patient not taking.Reported on 03/11/2018 ondansetron (ZOFRAN) 4 MG Tablet Take 4 mg by mouth every 8 hours as needed for Nausea. Active Levonorgest-Eth Estrad -Day (QUASENSE) 0.15-0.03 MG Tablet Take 1 Tab by mouth daily. Active docusate sodium (COLACE) 100 MG Capsule Take 1 Cap by mouth daily. 20 Cap 0 7 Active Additional Information Patient not taking.Reported on 03/11/2018 HYDROcodone-alexandre taminophen (NORCO) 5-325 MG Tablet Take 1-2 Tabs by mouth every 4 hours as needed for Pain. 20 Tab 0 7 Active Additional Information Patient not taking.Reported on 03/11/2018 Eluxadoline (VIBERZI) 75 MG Tablet Take 75 mg by mouth daily. 30 Tab 3 8 Active lansoprazole (PREVACID) 30 MG CAPSULE DELAYED RELEASE Take 1 Capsule by mouth daily. 30 Capsule 1 Active Family History Medical History Relation Name Comments Hypothyroidism Father Hypertension Maternal Grandmother No Known Problems Mother Relation Name Status Comments Father Alive Maternal Grandmother Mother Alive Social History Tobacco Use Types Packs/Day Years Used Date Smoking Tobacco: Never Smokeless Tobacco: Never Alcohol Use Standard Drinks/Week Comments No 0 (1 standard drink = 0.6 oz pur e alcohol) Comments No Sex and Gender Information Value Date Recorded Sex Assigned at Not on file Legal Sex Female 4:38 PM DIRECTOR REVENUE Gender Identity Not on file Sexual Orientation Not on file 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 Not on file Not on file Not on file Last Filed Vital Signs Vital Sign Reading Time Taken Comments Blood Pressure 110/60 05/01/2018 3:13 PM CDT Pulse 77 05/01/2018 3:13 PM CDT Temperature 37.2 C (98.9 F) 03/11/2018 6:33 PM CDT Respiratory Rate 16 03/11/2018 6:33 PM CDT Oxygen Saturation 98% 05/01/2018 3:13 PM CDT Inhaled Oxygen Concentration - - Weight 73 kg (161 lb) 05/01/2018 3:13 PM CDT Height 162.6 cm (5' 4 ) 05/01/2018 3:13 PM CDT Body Mass Index 27.64 05/01/2018 3:13 PM CDT Plan of Treatment Health Maintenance Due Date Last Done Comments Hepatitis C Virus (HCV) Screening 1998 Human Papillomavirus (HPV) Immunization (1 - 3-dose series) 2013 Influenza Immunization (#1) 03/11/202404/12, 06/19/2012, 05/02/2008 SARS-COV-2 Immunization ( season) 2024 Respiratory Syncytial Virus (RSV) Immunization (Adult) (1 - 1-dose 75+ series) 2073 Hepatitis B Immunization Completed 999, 03/20/1999, 01/20/1999 DTaP/Tdap/Td Immunization Discontinued 2009, 11/07/2003, 02/12/2000, Additional history exists Meningococcal Immunization (ACWY) Aged Out 01/22/2010 No longer eligible based on patient's age to complete this topic TdaP Immunization Completed 01/22/2010 Pneumococcal Immunization Combined Aged Out No longer eligible based on patient's age to complete this topic Rotavirus Immunization Aged Out No lo nger eligible based on patient's age to complete this topic Insurance [facility] [address] Care Teams Traveling Accountant Relationship Specialty Start Date End Date Rachel Casiano MD [address] [place] [address] [address] [place] [address] PCP - General Pediatrics 08/05/16 Norma Lockwood, BI LEAD, PULP DRIER FIRER [address] [place] [address] [address] [place] [address] Nurse Practitioner Advanced Practice Nurse 08/05/16
== END 2024-11-10 03:02 | disposition home or self-care (01) ==
PROVIDERS: Emergency Provider Emergency Medicine; PCP Obstetrics & Gynecology
DX: O20.0 Threatened abortion (principal); Z3A.01 Less than 8 weeks gestation of pregnancy; O99.891 Other specified diseases and conditions complicating pregnancy; N80.9 Endometriosis, unspecified; O99.611 Diseases of the digestive system complicating pregnancy, first trimester; K21.9 Gastro-esophageal reflux disease without esophagitis; Z87.440 Personal history of urinary (tract) infections
CPT/HCPCS: 36415; 80053; 81001; 83690; 83735; 84702; 85025; 85461; 86850; 86900; 86901; 99283

== ENCOUNTER 2024-11-12 16:31 | Outpatient (CLI) | payer BC, SELFPAY ==
--- OUTSIDE RECORDS SUMMARY | 2024-11-12 16:53 | XMS_ITS | Clinical Summary ---
Author Organization [facility] [employer] Address [address] [place] [address] Care Team Providers Care Sales Office Manager Name Role Phone Salty Gordon MD Primary Care Provider [phone] Source Comments [facility] [employer],non-owned Affiliates and Associated Physician Practices is amultiple site organization consisting of ambulatory clinics and hospital sitesin [place], [place], [place] and [place]. This disclosure is being madepursuant to the Care Everywhere program and may not contain all information available regarding this patient. Last updated 18.NoDaysOff [employer] Allergies No known active allergies Medications * [...] Comments Blood Pressure 107/73 08/14/2022 2:35 PM RELOCATION SERVICES SPECIALIST Pulse 135 08/14/2022 2:35 PM RELOCATION SERVICES SPECIALIST Temperature 36.9 C (98.5 F) 08/14/2022 2:35 PM RELOCATION SERVICES SPECIALIST Respiratory Rate 24 08/14/2022 2:35 PM RELOCATION SERVICES SPECIALIST Oxygen Saturation 98% 08/14/2022 2:35 PM RELOCATION SERVICES SPECIALIST Inhaled Oxygen Concentration - - Weight 83.8 kg (184 lb 11.9 oz) 08/14/2022 8:41 AM RELOCATION SERVICES SPECIALIST Height 162.6 cm (5' 4 ) 08/14/2022 8:41 AM RELOCATION SERVICES SPECIALIST Body Mass Index 31.71 08/14/2022 8:41 AM RELOCATION SERVICES SPECIALIST Plan of Treatment Health Maintenance Due Date [...] age to complete this topic Insurance [facility] MEDICAID Care Teams Sales Office Manager Relationship Specialty Start Date End Date Salty Gordon MD [address] [place] [address] PCP - General Internal Medicine 08/06/22
--- OUTSIDE RECORDS SUMMARY | 2024-11-12 16:53 | XMS_ITS | Clinical Summary ---
Author Organization [facility] Address [address] [place] [address] Care Team Providers Care Electric Motor Repairman Name Role Phone Salty Gordon MD Primary Care Provider [phone] Allergies No known active allergies Medications sertraline (ZOLOFT) 50 mg tablet Take 50 mg by mouth daily. 6 Active prenat.vits,bill, fug-pxlr-femxu ( VITAMIN) tablet Take by mouth daily. 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 Gender Identity Not on file Sexual Orientation [...] Most Recently Relevant to Health Maintenance Insurance [employer] ACCESS [employer] ACCESS CHOICE ACCESS ME ANTH ACCESS ANTH ACCESS Advance Directives For more information, please contact: [phone] * Full Code (Latest Code Status on File) Date Activated Date Inactivated Comments 10/11/2017 4:27 PM 10/14/2017 11:53 PM * Full Code Date Activated Date Inactivated Comments 10/10/2017 4:36 PM 10/11/2017 4:27 PM Full CPR in ca se of cardiopulmonary arrest Care Teams Electric Motor Repairman Relationship Specialty Start Date End Date Salty Gordon MD [address] [place] [address] PCP - General Family Medicine 08/11/22
--- OUTSIDE RECORDS SUMMARY | 2024-11-12 16:53 | XMS_ITS | Referral Summary ---
Author Organization [facility] Address [address] [place] [address] Care Team Providers Care Car Changer Name Role Phone Salty Gordon MD Primary Care Provider [phone] Allergies No known active allergies Medications sertraline (ZOLOFT) 50 mg tablet Take 50 mg by mouth daily. 6 Active prenat.vits,bill, gfo-aetu-fxqfc ( VITAMIN) tablet Take by mouth daily. 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 Gender Identity Not on file Sexual Orientation [...] Name:MIGUEL FIERRO Date of :1969 (Home) Address: [address] [place] [address] Payer ID:[id number] (NAIC) Type:BC ALLIANCE Address: [address] [place] ACC[place] ACCESS Advance Directives For more information, please contact: [phone] * Full Code (Latest Code Status on File) Date Activated Date Inactivated Comments 10/11/2017 4:27 PM 10/14/2017 11:53 PM * Full Code Date Activated Date Inactivated Comments 10/10/2017 4:36 PM 10/11/2017 4:27 PM Full CPR in ca se of cardiopulmonary arrest Care Teams Car Changer Relationship Specialty Start Date End Date Salty Gordon MD [address] [place] [address] PCP - General Family Medicine 08/11/22
--- OUTSIDE RECORDS SUMMARY | 2024-11-12 16:53 | XMS_ITS | Clinical Summary ---
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 Care Teams Business Applications Developer Relationship Specialty Start Date End Date Rachel Casiano MD [address] [place] [address] [address] [place] [address] PCP - General Pediatrics 08/05/16 Norma Lockwood, MOSS GATHERER, BIOLOGICAL CHEMIST [address] [place] [address] [address] [place] [address] Nurse Practitioner Advanced Practice Nurse 08/05/16
[2024-11-12 18:11] LABS: Basophils Percent Auto 0.5 % (0.2-1.2); Eosinophils Absolute Auto 0.3 K/mm3 (0-0.3); Eosinophils Percent Auto 4.3 % (0-4.4); Hematocrit 34.7 % (37.0-47.0); Hemoglobin 10.8 g/dL (12.0-15.0); Immature Granulocyte Absolute 0.03 K/mm3 (0.00-0.031); Immature Granulocyte Percent A 0.4 % (0-0.5); Lymphocytes Absolute Auto 2.59 K/mm3 (0.9-3.2); Lymphocytes Percent Auto 34.6 % (18.3-44.2); Mean Corpuscular HGB Conc 31.1 g/dl (32-36); Mean Corpuscular Hemoglobin 27.6 pg (26-34); Mean Corpuscular Volume 88.5 fl (80-100); Mean Platelet Volume 10.8 fl (7.4-10.4); Monocytes Absolute Auto 0.5 K/mm3 (0.1-0.6); Monocytes Percent Auto 6.8 % (2.6-8.5); Neutrophils Percent Auto 53.4 % (45.5-73.1); Platelet Count Result 314 k/mm3 (150-375); Red Blood Count 3.92 M/mm3 (4.2-5.4); Red Cell Distribution Width 12.9 % (11.5-14.5); White Blood Count 7.5 K/mm3 (4.5-10.0)
[2024-11-12 19:01] LABS: Syphilis IgG/IgM Antibody Negative (Negative)
[2024-11-12 19:03] LABS: HIV 1/2 Ab P24 Ag Result Negative (Negative)
[2024-11-12 19:04] LABS: Hepatitis B Surface Antigen Negative (Negative); Rubella IgG Antibody 65.5 IU/ML
[2024-11-14 04:38] LABS: CMV IgG Antibody <0.60 U/mL; Varicella IgG Antibody 1.91 S/CO
== END 2024-11-12 16:32 | disposition home or self-care (01) ==
PROVIDERS: PCP Obstetrics & Gynecology; Visit Provider Obstetrics & Gynecology
DX: N91.2 Amenorrhea, unspecified (principal)
CPT/HCPCS: 36415; 84702; 85025; 86593; 86644; 86703; 86747; 86762; 86787; 86850; 86900; 86901; 87086; 87340; G0432

== ENCOUNTER 2024-11-19 14:35 | Outpatient (CLI) | payer BC, SELFPAY ==
--- NOTE | ~2024-11-19 | US_ITS ---
EXAMINATION: US OB <=14 wk fetus w TV DATE: 11/19/2024 15:10 INDICATION: Assess dating of during first trimester. Small amount of vaginal bleeding. TECHNIQUE: Real-time pelvic ultrasound utilizing both a transvaginal and transabdominal probe was pe rformed. The interpreting radiologist was not present for the study. COMPARISON: None. FINDINGS: The uterus measures 10.4 x 7.0 x 7.3 cm. There is an intrauterine gestational sac. A yolk sac and fe janee pole are identified. The crown rump length measures 1.5 cm, which correlates with an estimated ge stational age of 7 weeks and 6 days. heart motion is identified measuring 167 beats per minute (bpm) by M-mode Doppler. 2.8 x 1.8 x 0.8 cm hypoechoic subchorionic hematoma at the periphery of the gestational sac. The right ovary measures 4.3 x 3.8 x 2.7 cm. 2.3 similar anechoic corpus luteum cyst at the right ova ry. The left ovary measures 2.0 x 1.9 x 1.1 cm. There is no free fluid in the pelvis. IMPRESSION: 1. Single living fetus with heart rate of 167 bpm. 2. Gestational age by ultrasound of 7 weeks 6 day(s) +/- 5 day(s) with ultrasound estimated date of delivery ([facility]OC[facility]E) of 07/02/2025. 2. 2.8 x 1.8 x 0.8 cm subchorionic hematoma. Reviewed, dictated and finalized at location A. IMPRESSION: 1. Single living fetus with heart rate of 167 bpm. 2. Gestational age by ultrasound of 7 weeks 6 day(s) +/- 5 day(s) with ultraso und estimated date of delivery (INOCENTE) of 07/02/2025. 2. 2.8 x 1.8 x 0.8 cm subchorionic hematoma.
== END 2024-11-19 14:36 | disposition home or self-care (01) ==
PROVIDERS: PCP Obstetrics & Gynecology; Visit Provider Obstetrics & Gynecology
DX: Z34.90 Encounter for supervision of normal pregnancy, unspecified, unspecified trimester (principal)
CPT/HCPCS: 76801; 76817

== ENCOUNTER 2025-05-29 12:24 | Outpatient (CLI) | payer OTHER, MEDICAID, SELFPAY ==
[2025-05-29 13:43] LABS: Hematocrit 27.5 % (37.0-47.0); Hemoglobin 8.4 g/dL (12.0-15.0); Mean Corpuscular HGB Conc 30.5 g/dl (32-36); Mean Corpuscular Hemoglobin 24.7 pg (26-34); Mean Corpuscular Volume 80.9 fl (80-100); Platelet Count Result 247 k/mm3 (150-375); Red Blood Count 3.40 M/mm3 (4.2-5.4); White Blood Count 7.9 K/mm3 (4.5-10.0)
[2025-05-29 14:50] LABS: Syphilis IgG/IgM Antibody Non-Reactive (Nonreactive)
[2025-05-29 14:59] LABS: Glucose 1 Hour PP 50gm Dose 107 mg/dL
[2025-05-29 17:32] LABS: HIV 1/2 Ab P24 Ag Result Negative (Negative)
== END 2025-05-29 12:25 | disposition home or self-care (01) ==
LOC: ANHLAB 12:25
PROVIDERS: Visit Provider Student in an Organized Health Care Education/Training Program
DX: Z34.90 Encounter for supervision of normal pregnancy, unspecified, unspecified trimester (principal)
CPT/HCPCS: 36415; 82947; 85027; 86593; 86703; G0432

== ENCOUNTER 2025-06-10 16:37 | Outpatient (RCR) | payer OTHER, MEDICAID, SELFPAY ==
--- NOTE | ~2025-06-10 | US_ITS ---
EXAMINATION: US OB BPP wo non-stress DATE: 06/10/2025 18:05 SAS DEVELOPER INDICATION: Decreased movements TECHNIQUE: Real-time transabdominal obstetric ultrasound. FINDINGS: No prior studies for comparison. There is a single living fetus in vertex presentation. The placenta is posterior without placenta previa. cardiac activity and movement is noted with a heart rate of 149 beats per minute. Biophysical profile: breathin of 2 movement: 2 of 2 tone: 2 of 2 Amniotic flud pocket: 2 of 2 Total score: 8 of 8 JORJE is normal measuring 15.3 cm. IMPRESSION: 1. Single living intrauterine in vertex presentation. 2: Total biophysical profile score of 8/8. 3: Normal JORJE measures 15.3 cm. Reviewed, dictated and finalized at location I. DEVELOPER
[2025-06-10 17:46] VITALS: BP 121/67; PULSE 104
== END 2025-06-29 11:43 | disposition other institution (70) ==
LOC: ANHOBOP 16:37
PROVIDERS: Visit Provider Obstetrics & Gynecology
DX: O36.8190 Decreased fetal movements, unspecified trimester, not applicable or unspecified (principal)
CPT/HCPCS: 59025; 76819

== ENCOUNTER 2025-06-25 12:53 | Outpatient (CLI) | payer OTHER, MEDICAID, SELFPAY ==
[2025-06-25 13:07] LABS: Hematocrit 30.9 % (37.0-47.0); Hemoglobin 9.2 g/dL (12.0-15.0); Immature Granulocyte Percent A 0.7 % (0-0.5); Lymphocytes Absolute Auto 1.45 K/mm3 (0.9-3.2); Mean Corpuscular HGB Conc 29.8 g/dl (32-36); Mean Corpuscular Hemoglobin 24.7 pg (26-34); Mean Corpuscular Volume 83.1 fl (80-100); Nucleated Red Blood Cells Absolute Auto 0.000 K/mm3 (0.0-0.012); Nucleated Red Blood Cells Perc 0.0 % (0.0-0.2); Platelet Count Result 222 k/mm3 (150-375); Red Blood Count 3.72 M/mm3 (4.2-5.4); White Blood Count 5.6 K/mm3 (4.5-10.0)
[2025-06-25 13:32] LABS: Hypochromasia 1+; Schistocytes None Seen
[2025-06-25 14:00] LABS: Syphilis IgG/IgM Antibody Non-Reactive (Nonreactive)
--- OUTSIDE RECORDS SUMMARY | 2025-06-25 14:54 | XMS_ITS | Clinical Summary ---
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 Gender Identity Not on file Sexual Orientation [...] 3:13 PM CDT Height 162.6 cm (5' 4) 05/01/2018 3:13 PM CDT Body Mass Index 27.64 05/01/2018 3:13 PM CDT Plan of Treatment Health Maintenance Due Date Last Done Comments Hepatitis C Virus (HCV) Screening 1998 Human Papillomavirus (HPV) Immunization (1 - 3-dose series) 2013 Influenza Immunization (#1) 03/11/202504/12, 06/19/2012, 05/02/2008 SARS-COV-2 Immunization (2024- season) 2025 Respiratory Syncytial Virus (RSV) Immunization (Adult) (1 - 1-dose 75+ series) 2073 Hepatitis B Immunization Completed 999, 03/20/1999, 01/20/1999 DTaP/Tdap/Td Immunization Discontinued 2009, 11/07/2003, 02/12/2000, Additional history exists Meningococcal Immunization (ACWY) Aged Out 01/22/2010 No longer eligible based on patient's age to complete this topic TdaP Immunization Completed 01/22/2010 Varicella Immunization Completed 06/19/2012, 2009 Pneumococcal Immunization Combined Aged Out No longer eligible based on patient's age to complete this topic Rotavirus Immunization Aged Out No lo nger eligible based on patient's age to complete this topic Insurance [facility] [address] Care Teams Shopper Relationship Specialty Start Date End Date Rachel Casiano MD [address] [place] [address] [address] [place] [address] PCP - General Pediatrics 08/05/16 Norma Lockwood, BOARD SAW RUNNER, PLC TECHNICIAN [address] [place] [address] [address] [place] [address] Nurse Practitioner Advanced Practice Nurse 08/05/16
--- OUTSIDE RECORDS SUMMARY | 2025-06-25 14:54 | XMS_ITS | Data Portability ---
Author Organization [place] [facility] [place] [facility] Address # [address] [place] [address] Care Team Providers Care Chief Fishery Division Name Role Phone MATA CASIANO Primary Care [...] fingerstick , blood 2015 016 [facility], [address], [place], [address], 6 04:06:24 CMP, serum or plasma 2015 016 [facility], [address], [place], [address], 6 04:06:16 CBC 2015 016 [facility], [address], [place], [address], 6 04:06:17 erythrocyte sedimentati on rate by westergren method 2015 016 [facility], [address], [place], [address], 6 04:06:17 Referral None recorded. Procedures None recorded. Surgeries None recorded. Imaging XR, chest, 2 view 2015 016 Not available 6 04:06:17 electrocard iogram 2015 016 Not available 6 04:06:17 Medication Orders sertraline 50 mg tablet 2015 016 [facility] #[id number], [address], [place], [place], [id number], 6 04:06:24 ranitidine 150 mg tablet 2015 016 [email or web address] [facility] #[id number], [address], [place], [place], [id number], 7 17:11:57 albuterol sulfate HFA 90 mcg/actuati on aerosol inhaler 2015 016 [facility] #[id number], [address], [place], [place], [id number], 6 04:06:16 Patient TargetsNo targets recorded. Patient Instructions Encounter Date Encounter Id Patient Instructions Last Modified By Organization Details Last Modified Time 04/02/2016 [id number] wheezing or bronchoconstricti on: care instructions [email or web address] Not available 04/02/2016 14:18:27 05/10/2016 [id number] depression screening* [id number] Not available 06/26/2016 04:06:25 Reason for Referral None Reported. Results Created Date Observation Date Name Description Value Unit Range Abnormal Flag Note LastModifiedBy Organization Detail LastModifiedTime 05/10/20 16 05/10/2016 depre ssion scree karen* PDQ-9 12 Not Available [facility] [address] [facility] [address], [place], [address], 05/10/2016 09:54:27 05/10/20 16 05/10/2016 hemog lobin (Hb), finge rstic k, blood HGB 11 Not Available [facility] [address] [facility] [address], [place], [address], 05/10/2016 09:49:18 11/12/19 16 11/12/2015 monon ucleo sis, heter ophil e Ab, blood MONONUCLEOSI S, RAPID positi ve Not Available [facility] [address] [facility] [address], [place], [address], 11/12/2015 15:49:17 11/12/19 16 11/14/2015 eryth rocyt e sedim entat ion rate by lloyd anderson metho d sed rate by modified henrikren 14 mm/h < or = 20 normal Not Available [address], [address], 11/14/2015 16:16:06 11/12/19 16 11/14/2015 CBC w/ auto diff white blood cell count 5.3 thous and/u L 4.5-13 .0 normal Not Available [address], [address], 11/14/2015 16:16:06 11/12/19 16 11/14/2015 CBC w/ auto diff red blood cell count 4.48 kwasi on/uL 3.80-5 .10 normal Not Available [address], [address], 11/14/2015 16:16:06 11/12/19 16 11/14/2015 CBC w/ auto diff hemoglobin 12.1 g/dL 11.5-1 5.3 normal Not Available [address], [address], 11/14/2015 16:16:06 11/12/19 16 11/14/2015 CBC w/ auto diff hematocrit 38.8 % 34.0-4 6.0 normal Not Available [address], [address], 11/14/2015 16:16:11/12/19 16 11/14/2015 CBC w/ auto diff MCV 86.6 fL 78.0-9 8.0 normal Not Available [address], [address], 11/14/2015 16:16:11/12/19 16 11/14/2015 CBC w/ auto diff MCH 27.0 pg 25.0-3 5.0 normal Not Available [address], [address], 11/14/2015 16:16:11/12/19 16 11/14/2015 CBC w/ auto diff MCHC 31.1 g/dL 31.0-3 6.0 normal Not Available [address], [address], 11/14/2015 16:16:11/12/19 16 11/14/2015 CBC w/ auto diff RDW 13.1 % 11.0-1 5.0 normal Not Available [address], [address], 11/14/2015 16:16:11/12/19 16 11/14/2015 CBC w/ auto diff platelet count 221 thous and/u L 140-40 0 normal Not Available [address], [address], 11/14/2015 16:16:11/12/19 16 11/14/2015 CBC w/ auto diff MPV 9.9 fL 7.5-11 .5 normal Not Available [address], [address], 11/14/2015 16:16:11/12/19 16 11/14/2015 CBC w/ auto diff absolute neutrophils 2629 cells /uL 1800-8 000 normal Not Available [address] [place], [address], 11/14/2015 16:16:11/12/19 16 11/14/2015 CBC w/ auto diff absolute lymphocytes 2237 cells /uL 1200-5 200 normal Not Available [facility] [address] [address] [place], [address], 11/14/2015 16:16:11/12/19 16 11/14/2015 CBC w/ auto diff absolute monocytes 323 cells /uL 200-90 0 normal Not Available [facility] [address] [address] [place], [address], 11/14/2015 16:16:11/12/19 16 11/14/2015 CBC w/ auto diff absolute eosinophils 80 cells /uL 15-500 normal Not Available [facility] [address] [address] [place], [address], 11/14/2015 16:16:06 11/12/19 16 11/14/2015 CBC w/ auto diff absolute basophils 32 cells /uL 0-200 normal Not Available [facility] [address] [address] [place], [address], 11/14/2015 16:16:11/12/19 16 11/14/2015 CBC w/ auto diff neutrophils 49.6 % normal Not Available [facility] [address] [address] [place], [address], 11/14/2015 16:16:11/12/19 16 11/14/2015 CBC w/ auto diff lymphocytes 42.2 % normal Not Available [facility] [address] [address] [place], [address], 11/14/2015 16:16:11/12/19 16 11/14/2015 CBC w/ auto diff monocytes 6.1 % normal Not Available [facility] [address] [address] [place], [address], 11/14/2015 16:16:11/12/19 16 11/14/2015 CBC w/ auto diff eosinophils 1.5 % normal Not Available [address], [address], 11/14/2015 16:16:06 11/12/19 16 11/14/2015 CBC w/ auto diff basophils 0.6 % normal Not Available [address], [address], 11/14/2015 16:16:06 11/12/19 16 11/14/2015 C-oneyda ctive prote in, quant itati ve, serum or plasm a C-reactive protein 0.22 mg/dL <0.80 normal Pleas e be advis ed that patie nts ivan g Carbo xypen icill ins may exhib it false ly decre ased C-[place] ctive Prote in level s due to an josé tical inter feren ce in this assay . Not Available [address], [address], 11/14/2015 16:16:06 11/12/19 16 11/14/2015 epste in-ba rr virus (ebv) IgG + IgM panel , serum ebv viral capsid Ag (vca) Ab (IgM) 1.49 high Value Inter preta tion ----- ----- ----- ---- < or = 0.90 Negat jacky 0.91- 1.09 Equiv ocal > or = 1.10 Posit jacky Not Available [address], [address], 11/14/2015 16:16:07 11/12/19 16 11/14/2015 epste in-ba rr virus (ebv) IgG + IgM panel , serum ebv viral capsid Ag (vca) Ab (IgG) < OR = 0.90 normal Value Inter preta tion ----- ----- ----- ---- < or = 0.90 Negat jacky 0.91- 1.09 Equiv ocal > or = 1.10 Posit jacky Not Available [facility] [address], [address], 11/14/2015 16:16:07 11/12/19 16 11/14/2015 [facility] (ebv) IgG + IgM panel , serum ebv nuclear Ag (ebna) Ab (IgG) < OR = 0.90 normal Value Inter preta tion ----- ----- ----- ---- < or = 0.90 Negat jacky 0.91- 1.09 Equiv ocal > or = 1.10 Posit jacky Not Available [facility] [address], [address], 11/14/2015 16:16:07 11/12/19 16 11/14/2015 [facility] r[facility] virus (ebv) IgG + IgM panel , serum interpretati on: [facility]. Not Available [address] [place], [address], 11/14/2015 16:16:07 04/02/20 16 04/05/2016 CMP, serum or plasm a glucose 107 mg/dL 65-99 high Fasti ng refer ence inter kylie Not Available [facility] [address], [address], 04/05/2016 16:21:29 04/02/20 16 04/05/2016 CMP, serum or plasm a urea nitrogen (BUN) 11 mg/dL 7-20 normal Not Available [facility] [address], [address], 04/05/2016 16:21:29 04/02/20 16 04/05/2016 CMP, serum or plasm a creatinine 0.59 mg/dL 0.50-1 .00 normal Patie nt is <18 years old. Unabl e to calcu late eGFR. Not Available [address], [address], 04/05/2016 16:21:29 09/23/20 16 04/05/2016 CMP, serum or plasm a BUN/creatini ne ratio NOT APPLIC ABLE (calc ) 6-22 Not Available [address], [address], 04/05/2016 16:21:29 04/02/20 16 04/05/2016 CMP, serum or plasm a sodium 139 mmol/ L 135-14 6 normal Not Available [address], [address], 04/05/2016 16:21:29 04/02/20 16 04/05/2016 CMP, serum or plasm a potassium 4.1 mmol/ L 3.8-5. 1 normal Not Available [address], [address], 04/05/2016 16:21:29 04/02/20 16 04/05/2016 CMP, serum or plasm a chloride 103 mmol/ L 98-110 normal Not Available [address], [address], 04/05/2016 16:21:29 04/02/20 16 04/05/2016 CMP, serum or plasm a carbon dioxide 25 mmol/ L 20-31 normal Not Available [address], [address], 04/05/2016 16:21:29 04/02/20 16 04/05/2016 CMP, serum or plasm a calcium 9.3 mg/dL 8.9-10 .4 normal Not Available [address], [address], 04/05/2016 16:21:29 04/02/20 16 04/05/2016 CMP, serum or plasm a protein, total 7.6 g/dL 6.3-8. 2 normal Not Available [address], [address], 04/05/2016 16:21:29 04/02/20 16 04/05/2016 CMP, serum or plasm a albumin 4.5 g/dL 3.6-5. 1 normal Not Available [address], [address], 04/05/2016 16:21:29 04/02/20 16 04/05/2016 CMP, serum or plasm a globulin 3.1 g/dL_ (calc ) 2.0-3. 8 normal Not Available [address], [address], 04/05/2016 16:21:29 04/02/20 16 04/05/2016 CMP, serum or plasm a albumin/glob ulin ratio 1.5 (calc ) 1.0-2. 5 normal Not Available [address], [address], 04/05/2016 16:21:29 04/02/20 16 04/05/2016 CMP, serum or plasm a bilirubin, total 0.3 mg/dL 0.2-1. 1 normal Not Available [address], [address], 04/05/2016 16:21:29 04/02/20 16 04/05/2016 CMP, serum or plasm a alkaline phosphatase 54 U/L 47-176 normal Not Available [facility] [address] [address] [place], [address], 04/05/2016 16:21:29 04/02/20 16 04/05/2016 CMP, serum or plasm a AST 18 U/L 12-32 normal Not Available [address], [address], 04/05/2016 16:21:29 04/02/20 16 04/05/2016 CMP, serum or plasm a ALT 11 U/L 5-32 normal Not Available [address], [address], 04/05/2016 16:21:29 04/02/20 16 04/05/2016 CBC w/ auto diff white blood cell count 5.0 thous and/u L 4.5-13 .0 normal Not Available [address], [address], 04/05/2016 16:21:30 04/02/20 16 04/05/2016 CBC w/ auto diff red blood cell count 4.55 kwasi on/uL 3.80-5 .10 normal Not Available [address], [address], 04/05/2016 16:21:30 04/02/20 16 04/05/2016 CBC w/ auto diff hemoglobin 12.4 g/dL 11.5-1 5.3 normal Not Available [address], [address], 04/05/2016 16:21:30 04/02/20 16 04/05/2016 CBC w/ auto diff hematocrit 39.3 % 34.0-4 6.0 normal Not Available [address], [address], 04/05/2016 16:21:30 04/02/20 16 04/05/2016 CBC w/ auto diff MCV 86.3 fL 78.0-9 8.0 normal Not Available [address], [address], 04/05/2016 16:21:30 04/02/20 16 04/05/2016 CBC w/ auto diff MCH 27.2 pg 25.0-3 5.0 normal Not Available [address], [address], 04/05/2016 16:21:30 04/02/20 16 04/05/2016 CBC w/ auto diff MCHC 31.5 g/dL 31.0-3 6.0 normal Not Available [address], [address], 04/05/2016 16:21:30 04/02/20 16 04/05/2016 CBC w/ auto diff RDW 13.9 % 11.0-1 5.0 normal Not Available [address], [address], 04/05/2016 16:21:30 04/02/20 16 04/05/2016 CBC w/ auto diff platelet count 265 thous and/u L 140-40 0 normal Not Available [address], [address], 04/05/2016 16:21:30 04/02/20 16 04/05/2016 CBC w/ auto diff MPV 9.9 fL 7.5-11 .5 normal Not Available [address], [address], 04/05/2016 16:21:30 04/02/20 16 04/05/2016 CBC w/ auto diff absolute neutrophils 2395 cells /uL 1800-8 000 normal Not Available [address], [address], 04/05/2016 16:21:30 04/02/20 16 04/05/2016 CBC w/ auto diff absolute lymphocytes 2140 cells /uL 1200-5 200 normal Not Available [address], [address], 04/05/2016 16:21:30 04/02/20 16 04/05/2016 CBC w/ auto diff absolute monocytes 290 cells /uL 200-90 0 normal Not Available [address], [address], 04/05/2016 16:21:30 04/02/20 16 04/05/2016 CBC w/ auto diff absolute eosinophils 140 cells /uL 15-500 normal Not Available [address], [address], 04/05/2016 16:21:30 04/02/20 16 04/05/2016 CBC w/ auto diff absolute basophils 35 cells /uL 0-200 normal Not Available [address], [address], 04/05/2016 16:21:30 04/02/20 16 04/05/2016 CBC w/ auto diff neutrophils 47.9 % normal Not Available [address], [address], 04/05/2016 16:21:30 04/02/20 16 04/05/2016 CBC w/ auto diff lymphocytes 42.8 % normal Not Available [address], [address], 04/05/2016 16:21:30 04/02/20 16 04/05/2016 CBC w/ auto diff monocytes 5.8 % normal Not Available [address], [address], 04/05/2016 16:21:30 04/02/20 16 04/05/2016 CBC w/ auto diff eosinophils 2.8 % normal Not Available [address], [address], 04/05/2016 16:21:30 04/02/20 16 04/05/2016 CBC w/ auto diff basophils 0.7 % normal Not Available [address], [address], 04/05/2016 16:21:30 04/02/20 16 04/05/2016 epste in-ba rr virus (ebv) IgG + IgM panel , serum ebv viral capsid Ag (vca) Ab (IgM) < OR = 0.90 normal Value Inter preta tion ----- ----- ----- ---- < or = 0.90 Negat jacky 0.91- 1.09 Equiv ocal > or = 1.10 Posit jacky Not Available [address] [place], [address], 04/05/2016 16:21:30 04/02/20 16 04/05/2016 epste in-ba rr virus (ebv) IgG + IgM panel , serum ebv viral capsid Ag (vca) Ab (IgG) 3.64 high Value Inter preta tion ----- ----- ----- ---- < or = 0.90 Negat jacky 0.91- 1.09 Equiv ocal > or = 1.10 Posit jacky Not Available [facility] [address] [address] [place], [address], 04/05/2016 16:21:30 04/02/20 16 04/05/2016 epste in-ba rr virus (ebv) IgG + IgM panel , serum ebv nuclear Ag (ebna) Ab (IgG) 4.28 high Value Inter preta tion ----- ----- ----- ---- < or = 0.90 Negat jacky 0.91- 1.09 Equiv ocal > or = 1.10 Posit jacky Not Available [facility] [address], [address], 04/05/2016 16:21:30 04/02/20 16 04/05/2016 epste in-ba rr virus (ebv) IgG + IgM panel , serum interpretati on: Sugge stive of a past Epste in-Ba rr virus infec tion. In infan ts, a sneha prince rn may occur as a resul t of passi ve mater nal trans gomez of antib william. Not Available [facility] [address] [place], [address], 04/05/2016 16:21:30 04/02/20 16 04/02/2016 cherelle schmidt am No observ ation record ed. [email or web address] Not Available 2015 17:40:25 04/05/20 16 04/02/2016 XR, chest , 2 view No observ ation record ed. [email or web address] Not Available 2015 13:42:59 04/06/20 16 04/02/2016 XR, chest , 2 view No observ ation record ed. [email or web address] [facility] [address] , [place], [address], 04/06/2016 18:36:00 07/01/20 16 06/28/2016 CT, abdom en, w/o contr ast No observ ation record ed. [email or web address] Not Available 2015 17:14:09 Result Notes None recorded. Problems Name Problem SNOMED Code Status Onset Date Resolution Date Notes Provider Name and Address Organization Details Recorded Time Abdominal pain 61649123 Completed 10/18/2014 Mata Casiano MD [address] [place] [address], [address], [facility], 5 12:44:48 Viral syndrome 074969357 Completed 10/18/2014 Mata Casiano MD [address] [place] [address], [address], [facility], 5 12:44:48 Viral infection by site Completed 10/18/2014 Mata Casiano MD [address] [place] [address], [address], [facility], 5 12:44:48 Dizziness and giddiness 282510683 Completed 10/18/2014 Mata Casiano MD [address] [place] [address], [address], [facility], 5 12:44:48 Contact dermatitis 33004562 Completed 10/18/2014 Mata Casiano MD [address] [place] [address], [address], [facility], 5 12:44:48 Influenza with respiratory manifestati on other than pneumonia Completed 10/18/2014 Mata Casiano MD [address] [place] [address], [address], [facility], 5 12:44:48 Fibromyosit is 13717060 Completed 10/18/2014 Mata Casiano MD [address], [address], [facility], 5 12:44:48 Orthostatic hypotension 43200501 Completed 10/18/2014 Mata Casiano MD [address], [address], [facility], 5 12:44:48 Acute pharyngitis 010483984 Completed 10/18/2014 Mata Casiano MD [address], [address], [facility], 5 12:44:48 Backache 383513267 Completed 10/18/2014 Mata Casiano MD [address], [address], [facility], 5 12:44:48 Pain in limb 06597289 Completed 10/18/2014 Mata Casiano MD [address], [address], [facility], 5 12:44:48 Depressive disorder 38570271 Active Mata Casiano MD [address], [address], [facility], 6 15:33:51 Folliculiti s 49303568 Completed 10/18/2014 Mata Casiano MD [address], [address], [facility], 5 12:44:48 Viral disease 64372759 Completed 10/18/2014 Mata Casiano MD [address], [address], [facility], 5 12:44:48 Streptococc al sore throat 81878530 Completed 11/12/2015 ERAN Stone [address], [address], [facility], 6 15:00:22 Bacterial folliculiti s 640697760 Active Mata Casiano MD [address] [facility] [address], [place], [address], [facility], 5 12:45:19 Hypertrophy of tonsils 72987165 Active BRIANNE THURSTON APRN-FPA [address] [facility] [address], [place], [address], [facility], 5 14:15:29 Acute chest pain 243282544 Completed 201504/02/2016 [facility], 6 11:36:16 Problem Notes None recorded. Procedures Surgical History Date Name Laterality Status Provider Name and Address Organization Details Recorded Time 6 Nebulizer tx completed Mary Pierson [facility], 04/20/2016 16:59:33 Imaging Results None recorded. Procedure Notes None recorded. Medical Equipment None [...] active Not Available Not Available Not Available Se- 19 (with docusate) 29 mg iron-1 mg-25 mg tablet active Not Available Not Available Not Available BenzEFoam 5.3 % topical active Not Available Not Available Not Available Lo Loestrin Fe 1 mg-10 mcg (24)/10 mcg (2) tablet 06/09 completed Not Available Not Available Not Available Vitals Date Recorded Heart rate Body temperature Respiratory rate Body weight Systolic And Diastolic Provider Name and Address Organization Details Last Updated DateTime 6 120 /min 97.59 [degF] 16 /min 40765.6 6 g 110/68 mm[Hg] ERAN Stone 4 [facility] [address] [place] [address], [address] [facility], 6 16:43:31 Date Recorded Oxygen saturation Body weight Heart rate Respiratory rate Systolic And Diastolic Provider Name and Address Organization Details Last Updated DateTime 6 100 % 05169.6 6 g 96 /min 20 /min 120/88 mm[Hg] ERAN Stone 4 [facility] [address], [place], [address], [facility], 6 10:53:29 Date Recorded Heart rate Respiratory rate Body height Body weight Body mass index (BMI) Systolic And Diastolic Provider Name and Address Organization Details Last Updated DateTime 6 88 /min 16 /min 165.1 cm 41836.4 5 g 20.6 kg/m2 104/68 mm[Hg] Romana Valerio [facility], 6 09:14:08 Date Recorded Body height Body mass index (BMI) Body weight Heart rate Respiratory rate Body temperature Systolic And Diastolic Provider Name and Address Organization Details Last Updated DateTime 7 165.1 cm 23.3 kg/m2 71873.9 3 g 100 /min 20 /min 98.8 [degF] 118/66 mm[Hg] Bertha Burnham [facility], 7 17:09:23 Date Recorded Body height Body weight Body mass index (BMI) Heart rate Respiratory rate Body temperature Systolic And Diastolic Provider Name and Address Organization Details Last Updated DateTime 6 165.1 cm 56441.2 3 g 21.1 kg/m2 90 /min 20 /min 99.9 [degF] 112/70 mm[Hg] Bertha Burnham [place] - [facility], 6 17:10:23 Social History Question Answer Notes LastModified by Organizat ion Details LastModified Time Tobacco Smoking Status Never Smoker Not Available [facility] 05/06/2020 03:10:52 Animal Exposure? Yes 2 Dogs 1 Cat Information not available 06/19/2012 Are There Any Guns Present In Your Home? No [id number] Information not available 05/06/2020 What Is Your Home Situation? Both Parents [id number] Information not available 05/06/2020 Do You Use Insect Repellent Routinely? Yes [id number] Information not available 05/06/2020 What Is Your Parents' Marital Status? [id number] Information not available 05/06/2020 What Is The Name Of Your School? [employer] [id number] Information not available 05/06/2020 Do You Use Your Seat Belt Or Car Seat Routinely? Yes [id number] Information not available 05/06/2020 Do You Have Any Siblings? 6 Only 1 At Home [id number] Information not available 05/06/2020 Do You Have Smoke And Carbon Monoxide Detectors In Your Home? Yes [id number] Information not available 05/06/2020 Are You Passively Exposed To Smoke? No Information not available 06/19/2012 What Types Of Sporting Activities Do You Participate In? Volleyball [id number] Information not available 05/06/2020 Do You Use Sunscreen Routinely? Yes [id number] Information not available 05/06/2020 Year In School 8 Informat[employer] n not available 06/19/2012 Sex: Unknown Functional Status None recorded. Mental Status None recorded. Family History Nothing Reported. Medical History Condition Response Diabetes N Other Developmental Delay N Bedwetting N ER or UC Visits Y Frequent Ear Infections N Skin problems N Asthma / Wheezing N Nasal Allergies N Hospitalizations N Frequent Headaches N ADD or ADHD N Allergies N Broken bones N ear or hearing problems N Sleep Problems / Snoring N Concerns with Hearing or Vision N Constipation N Murmur / Cardiac N Serious Injuries N Albuterol / Nebulizer N History of UTI N Gynecological HistoryNo gynecological history recorded. Obstetrics [...] [facility], 12/14/2011 12:37:54 Influenza, live, trivalent, intranasal, PF 8 completed Betsy Albright null, [place] - [facility], 12/14/2011 12:40:18 IPV 3 completed Bets[place] [facility], 12/14/2011 12:45:43 varicella 0 completed Not Available [facility] 05/26/2011 06:14:34 Tdap 0 completed Not Available [facility] 05/26/2011 06:13:51 meningococcal ACWY, unspecified formulation 0 completed Not Available [facility] 05/26/2011 06:13:51 Influenza, split virus, quadrivalent, PF 6 completed Not Available [facility] 07/28/2019 02:12:45 Hep A, ped/adol, 2 dose 2 completed Not Available [facility] 07/28/2019 02:11:59 varicella 2 completed Not Available [facility] 07/28/2019 02:11:53 Influenza, live, trivalent, intranasal, PF 2 completed Not Available [facility] 07/28/2019 02:12:23 Past Encounters Encounter ID Performer Location Encounter Start Date Encounter Closed Date Diagnosis/Indication Diagnosis SNOMED-CT Code Diagnosis ICD10 Code Diagnosis IMO Codes Diagnosis Note [id number] [facility] [address] [place] [address],[address] [place] [address] 01/22/2010 12:33:49 01/22/2010 12:34:52 [id number] Mata [facility]iano [facility] [address] [place] [address],[address] [place] [address] 09/13/2011 13:20:02 09/15/2011 14:12:44 [id number] Mata Casiano [facility] [address] [place] [address],[address] [place] [address] 09/24/2011 17:26:38 09/28/2011 11:06:38 [id number] [facility] [address] [place] [address] 03/14/2012 14:43:09 03/16/2012 11:37:39 [id number] MORGAN [facility] [address] [place] [address] 06/19/2012 11:07:28 06/20/2012 10:48:28 [id number] [facility] [address] [place] [address] 06/26/2012 16:04:26 06/27/2012 14:44:53 [id number] Mata Casiano [facility] [address] [place] [address] 10/05/2012 09:48:20 10/06/2012 09:51:25 [id number] [facility] [address] [place] [address] 01/02/2013 15:55:07 01/05/2013 10:47:40 [id number] BRIANNE THURSTON APRN-FPA [facility] [address] [place] [address] 02/05/2013 17:36:42 02/06/2013 14:11:16 [id number] Mata Cas[facility] [address] [place] [address] 03/30/2013 16:55:14 04/03/2013 12:31:22 [id number] Mata Casiano [facility] [address] [place] [address] 04/19/2013 15:32:22 04/23/2013 12:39:26 [id number] Mata Casiano [facility] [address] [place] [address] 08/20/2013 13:46:32 08/21/2013 11:35:16 Abdominal pain [id number] Viral syndrome [id number] [facility] [address] [place] [address] [employer] [place] [address] 11/02/2013 13:50:21 11/03/2013 09:44:41 Depressive disorder [id number] Henrietta Carlson MD [facility] [address] [place] [address] [address] [address] [place] [address] 01/21/2014 12:26:53 01/24/2014 10:07:35 Folliculitis [id number] Henrietta Carlson MD [facility] [employer] [place] [address] 08/13/2014 14:17:01 08/15/2014 10:48:20 Acute pharyngitis [id number] Henrietta Carlson MD [facility] [address] [place] [address] [address] [address] [place] [address] 08/22/2014 16:14:49 08/23/2014 15:11:55 Viral disease [id number] Mata Casiano MD [facility] [address] [place] [address] [address] [address] [place] [address] 10/08/2014 10:49:36 10/10/2014 10:10:15 Acute pharyngitis [id number] Mata Casiano MD [facility] [address] [place] [address] [address] [place] [address] 10/18/2014 11:18:13 10/19/2014 10:06:49 Streptococcal sore throat 96280435 Bacterial folliculitis [id number] Fever [id number] Mata Casiano MD [facility] [address] [place] [address] [address] [address] [place] [address] 12/06/2014 14:43:15 12/07/2014 09:59:18 Depressive disorder 17294502 [id number] [facility]ata [facility] [address] [place] [address] [address] [address] [place] [address] 06/20/2015 12:05:22 06/20/2015 16:59:46 Hypertrophy of tonsils 25517382 J35.1 Depressive disorder 3548 9007 F32.9 [id number] Mata Casiano MD [facility] [address] [place] [address] 09/01/2015 14:21:49 09/02/2015 11:31:24 Depressive disorder 22788251 F33.2 [id number] Henrietta Carlson MD [facility] [address] [place] [address] 11/12/2015 14:48:03 11/13/2015 16:47:23 Lymphadenopathy 23398972 R59.0 [place]- discussed dx/course/ sx treatment. Abscess discussed- with intention to treat until CBC results obtained.N o sports or rough activity. Patient to return in 2 days.. Call for any severe or worrisome symptoms. [id number] Mata Casiano MD [facility] [address] [place] [address] 11/14/2015 11:16:01 11/15/2015 09:57:12 Infectious mononucleosis [id number] B27.90 Mononucleo sis- Continue rest and encourage fluids. Discussed starting steroid burst for throat pain/edema . Swallowing ok. Continue no sports or gym for 4-6 weeks until released. Tylenol or ibuprofen for fever/disc omfort. RTC for worsening symptoms. CBC WNL, but as clindamyci n was started for concern for lymphadeni tis, would continue. [id number] Mata Casiano MD [facility] [address] [place] [address] 11/25/2015 16:33:08 11/27/2015 12:01:48 Papular eruption [id number] R21 Likely viral in origin, should be self-limit ing. Avoid an irritants to face. Call with new or concerning symptoms. [id number] Henrietta Carlson MD [facility] [address] [place] [address] 04/02/2016 10:48:05 04/09/2016 15:30:12 Acute chest pain 926208557 R07.9 CXR negative. EKG Normal. Education given to Mom. Epigastric pain 65329886 R10.13 GERD. Patient symptoms resolved after initial dose of nexium sample given in office today.Educ ation given. Follow up in one week. Wheezing 95442150 R06.2 Expiratory wheezing noted on exam. Improved with nebulizer treatment. Discussed wheezing/a nxiety. Education given. Follow up in one week. [id number] [facility] [address] [place] [address],[address] [address] 05/10/2016 09:03:30 05/11/2016 10:07:24 Depressive disorder 95539362 F33.2 Vast improvemen t in her PHQ-9, but remains with multitude of somatic complaints . Discussed possibilit y of somatic symptom disorder. Recommende d daily exercise, getting a job or volunteer opportunit y. Encouraged that she has applied to [employer]. Refilling her sertraline for 6mo. RTC early 2016 for recheck. Diet poor 413243309 Z72. 4 Horrendous intake of only guacamole, chips and lettuce. Recommende d MVI with iron daily and improved diet. Influenza vaccine needed [id number] 106 Z23 I discussed with the parent the vaccines ordered below that the patient is to receive today; all questions were answered and the informatio nal handout(s) was/were given. [id number] Henrietta Carlson [facility] [address] [place] [address],[address] [address] 06/29/2016 17:03:15 07/01/2016 12:07:48 Abdominal pain 05840163 R10.30 Etiologies include:CORNELIUS BARKER - urine from [...] also has appt in 2 weeks at [facility] [id number] [facility],[address] [place] [address] 06/09/2017 17:00:40 06/09/2017 17:46:00 Health Concerns Section Related Observation LastModified by Organization Detai ls LastModified Time None Recorded Concern Status LastModified by Organization Details LastModified Time None Recorded Advance Directives Directive None Recorded Payers Insurance Date Sequence Insurance Name Policy Number Policy Hernandez Covered Member ID Hernandez Member ID Guarantor Name 02/23/2014 1 [employer] - [employer] - OPEN ACCESS (HMO) [id number] Liudmila Fierro [id number] Shona Fierro 06/09/2017 1 [place] [id number] Liudmila Fierro [id number] Shona Fierro 08/27/2017 1 [place] [id number] Liudmila Fierro [id number] Shona Fierro Notes Date Note Type Note Provider Name and Address Organization Details Recorded Time 11/25/19 16 text/htm l Rash/Skin LesionReported by PatientHPIFor quality, patient reportsitchy,red, andmultiplebut reportsnot painful. For location, patient reportsface,chest, andback. For onset/timing, patient reportsabrupt onset (2 days ago woke up with rash). For context, patient reportsno new detergents or skin productsandno one else with similar rash(dx'd with mono approx 1 week ago). For associated symptoms, patient reportsno fever,no cold symptoms,no nausea,no vomiting,no diarrhea, andno urinary symptoms.Here with fatherROS as noted in the HPI AMADEO YAÑEZ [address] [facility] [address], [place], [address], [place] [facility], 11/25/2015 17:55:15 04/02/20 16 text/htm l Angina/Chest PainReported by PatientHPIFor quality, patient reportsheavinessandsharp. For severity, patient reportsvery limiting. For associated symptoms, patient reportschest discomfort,shortness of breath (minimal),dizziness, andlightheadedness. For location, patient reportschest (feels like someone is sitting on her chset and also has sharp pains shooting upward.). For duration, (episode of chest pain started today around 8-8:30. approx 1 month ago, had a similar episode. was home by herself. took a few hours to resolve.).Here with motherROS as noted in the HPI Mary Pierson [facility], 04/20/2016 16:59:40 05/10/20 16 text/htm l Generic HPI TemplateReported by PatientDenies any SI/HISleeping 5 or 6pm to 2 or 3 am. C/o feeling tired. Not napping.ROS as noted in the HPI Mata Casiano MD [address] [place] [address] [address], [place], [address], [facility], 05/10/2016 10:21:45 06/29/20 16 text/htm l Abdominal PainReported by ParentAbdominal PainFor quality, parent reportspainandsharp. For associated symptoms, parent reportsdecreased appetitebut reportsno fever (but now is 99.9),no chills,no blood in the urine,no heartburn, andno shortness of breath(no vomiting - had a soft stool today). For location, parent reportsrlq. For other, parent reportssexually active(had protected sex 3 weeks ago.had a normal renal stone ct last evening in er and a normal pelvic ultrasound' normal cbc). For duration, (started yesterday around 8pm). For context, (was in er yesterday with ruptured cyst on left ovary ( diagnosis made from fact that there was some fluid in the culdesac); now having right sided pain; has had lower abdominal pain for past several months - has an appt with gyne in a couple of weeks.). For modifying factors, (taking vicodin). I also have reviewed prior office visit notesROS as noted in the HPI Henrietta Carlson MD [address] [place] [address] [address], [place], [address], [facility], 06/30/2016 22:36:59 06/09/20 17 text/htm l Anxiety/DepressionReported by PatientHPIFor context, patient reportsmajor life stressors (pt is currently 22 weeks ). For associated symptoms, patient reportsanxietyanddepression(claudia up says zoloft has helped improve her symptoms of anxiety and depression.). For severity, patient reportsdenies suicidal ideations. Lona Arroyo [facility], [place] - [facility], 06/09/2017 17:45:58 OBGyn Episode No OBEpisode recorded.
--- OUTSIDE RECORDS SUMMARY | 2025-06-25 14:54 | XMS_ITS | Clinical Summary ---
Author Organization [facility] Address [address] [place] [address] Care Team Providers Care Director Of Entertainment Name Role Phone Salty Gordon MD Primary Care Provider [phone] Allergies No known active allergies Medications sertraline (ZOLOFT) 50 mg tablet Take 50 mg by mouth daily. 6 Active prenat.vits,bill, npr-cbvd-hyksv ( VITAMIN) tablet Take by mouth daily. [...] on file Legal Sex Female 1:45 AM [employer] Gender Identity Not on file Sexual Orientation [...] 10:40 PM CDT Height 162.6 cm (5' 4) 01/29/2023 10:40 PM CDT Body Mass Index 34.33 01/29/2023 10:40 PM CDT Plan of Treatment Health Maintenance Due Date Last Done Comments Cervical Cancer Screening 1998 HPV Vaccines (1 - 3-dose series) 2013 Regular Well Visit/Exam 18-64 2016 Depression Screening 08/03/2022 08/03/2021, 06/08/2018, 09/27/2017 Influenza Vaccine (#1) 2025 8, 05/10/2016, 06/19/2012, Additional history exists DTaP/Tdap/Td [...] Most Recently Relevant to Health Maintenance Insurance [employer] ACCESS [employer] ACCESS CHOICE ACCESS [place] ANTH ACCESS ANTH ACCESS Advance Directives For more information, please contact: [phone] * Full Code (Latest Code Status on File) Date Activated Date Inactivated Comments 10/11/2017 4:27 PM 10/14/2017 11:53 PM * Full Code Date Activated Date Inactivated Comments 10/10/2017 4:36 PM 10/11/2017 4:27 PM Full CPR in ca se of cardiopulmonary arrest Care Teams Director Of Entertainment Relationship Specialty Start Date End Date Salty Gordon MD [address] [place] [address] PCP - General Family Medicine 08/11/22
--- OUTSIDE RECORDS SUMMARY | 2025-06-25 14:54 | XMS_ITS | Clinical Summary ---
Author Organization [facility] [employer] Address [address] [place] [address] Care Team Providers Care Solvent Station Attendant Name Role Phone Salty Gordon MD Primary Care Provider [phone] Source Comments [facility] [employer],non-owned Affiliates and Associated Physician Practices is amultiple site organization consisting of ambulatory clinics and hospital sitesin [place], [place], [place] and [place]. This disclosure is being madepursuant to the Care Everywhere program and may not contain all information available regarding this patient. Last updated 18.[employer] Allergies No known active allergies Medications * [...] Comments Blood Pressure 107/73 08/14/2022 2:35 PM SUGAR SAMPLER Pulse 135 08/14/2022 2:35 PM SUGAR SAMPLER Temperature 36.9 C (98.5 F) 08/14/2022 2:35 PM SUGAR SAMPLER Respiratory Rate 24 08/14/2022 2:35 PM SUGAR SAMPLER Oxygen Saturation 98% 08/14/2022 2:35 PM SUGAR SAMPLER Inhaled Oxygen Concentration - - Weight 83.8 kg (184 lb 11.9 oz) 08/14/2022 8:41 AM SUGAR SAMPLER Height 162.6 cm (5' 4) 08/14/2022 8:41 AM SUGAR SAMPLER Body Mass Index 31.71 08/14/2022 8:41 AM SUGAR SAMPLER Plan of Treatment Health Maintenance Due Date Last Done Comments HIV SCREENING 2013 HPV VACCINE (1 - 3-dose series) 2013 HEPATITIS C SCREENING 11/12/2016 DTAP/TDAP/TD VACCINES (1 - Tdap) 2017 HEPATITIS B VACCINE (1 of 3 - 19+ 3-dose series) 2017 PAP SMEAR 11/18/2019 DEPRESSION SCREENING 07/11/2024 COVID-19 VACCINE (1 - 2024-2 6 season) 2025 INFLUENZA VACCINE (#1) 2025 8, 05/10/2016 ZOSTER VACCINE (1 of 2) 2048 [...] age to complete this topic Insurance [employer] Member Subscriber Plan / Payer (Ef fective 2010-Present) Name:Shona Fierro Relation to Subscriber:Child Name:MIGUEL FIERRO Subscriber ID:Not on file (Home) Address: [address] [place] [address] Payer ID:[id number] (NAIC) Type:O Address: [address] [place] [id number] [facility] MEDICAID Care Teams Solvent Station Attendant Relationship Specialty Start Date End Date Salty Gordon MD [address] [place] [address] PCP - General Internal Medicine 08/06/22
== END 2025-06-25 12:54 | disposition home or self-care (01) ==
LOC: ANHLAB 12:55
PROVIDERS: Visit Provider Obstetrics & Gynecology
DX: Z01.818 Encounter for other preprocedural examination (principal)
CPT/HCPCS: 36415; 85025; 86593; 86850; 86900; 86901

== ENCOUNTER 2025-06-26 10:51 | Inpatient (IN) | payer OTHER, MEDICAID, SELFPAY ==
[2025-06-26] VITALS (24 sets, daily range): BP systolic 99–124; BP diastolic 60–86; PULSE 57–108; RESP 12–18; TEMP 36.6–37.1; O2SAT 98–100; BMI 29.1
--- OUTSIDE RECORDS SUMMARY | 2025-06-26 02:24 | XMS_ITS | Clinical Summary ---
Author Organization [facility] Address [address] [place] [address] Phone Care Team Providers Care Electrician Office Name Role Phone YVONNE ZHANG, PHI Omalley Unavailable [phone] Reason for Visit and Chief Complaint The patient presents for a problem. - The Chief Complaint is: Med check and take EPDS Problems Includes: Problems addressed during this encounter and other active Problems Current Visit Onset Date Resolved Date Provider Yuliya stearns Status History of Depression 04/06/2017 Unknown PHI RUSSELL MD Resolved Last Documented On 04/12/2018 11:50AM ; [facility] Note: was Closed. History of Hematologic Disorders 04/06/2017 Unknown PHI RUSSELL MD Resolved Last Documented On 04/12/2018 11:50AM ; [facility] Note: was Closed. Plan of Treatment No Plan of Treatment Recorded Assessments Includes: Assessments from this encounter Findings - Depression - Last Documented On 07/21/2018 10:20AM ; [facility] Medical Equipment - Implanted Devices Includes: Current Devices No Medical Equipment Recorded Medications Includes: Medications discussed during this encounter and other current Medications New / Renewed during this visit PHI RUSSELL MD on 07/21/2018 Sertraline HCl 50MG Oral Tablet Provider: PHI RUSSELL MD 30 day supply: 30 tablet, 3 refills Diagnosis: Major depressive disorder, recurrent, unspecified One tablet daily Pharmacy: [facility] ([facility] - [address] , [facility], [id number] - Last Documented On 07/21/2018 10:30AM By PHI RUSSELL MD ; [facility] Current Medications (continue as prescribed) Sertraline HCl 50MG Oral Tablet 02/27/2018 Provider: PHI RUSSELL MD Diagnosis: One tablet daily Last Documented On 02/27/2018 5:48PM By PHI RUSSELL MD ; [facility] Past Medications on file Naproxen 500MG Oral Tablet 03/22/2018 - 05/31/2018 Provider: GAYATHRI SERVIN BC Diagnosis: Endometriosis, unspecified One tablet twice a day USE A S DIRECTED DON'T EXCEED 2 TABS IN 24 HOURS Last Documented On 8 5:06PM By GAYATHRI ASENCIO ; [facility] Ferrous Gluconate 324 (37.5 Fe)MG Oral Tablet 08/11/2017 - 12/09/2017 Provider: GAYATHRI SERVIN BC Diagnosis: Anemia complicat ing the puerperium One tablet twice a day Last Documented On 8 8:54AM By GAYATHRI MORRISON ; [facility] Nitrofurantoin Monohyd Macro 100MG Oral Capsule 07/07/2017 - 07/14/2017 Provider: GAYATHRI SERVIN BC Diagnosis: Hematuria, unspe cified One tablet twice a day TAKE DIRECTED W/FOOD Last Documented On 7 10:46AM By GAYATHRI MORRISON ; [facility] Classic 28-0.8MG Oral Tablet 03/09/2017 - 03/04/2018 Provider: GAYATHRI SERVIN Diagnosis: Encounter for test, result positive 1 daily Last Documented On 7 2:22PM By GAYATHRI MORRISON ; [facility] Quasense 0.15-0.03MG Oral Tablet 08/10/2016 - 11/10/19 17 Provider: DAVID MCCRARY MD Diagnosis: One tablet daily Last Documented On 08/10/2016 9:06AM By DAVID MCCRARY MD ; [facility] Fluconazole 150 MG Tablet 05/17/2016 - 05/19/2016 Provider: GAYATHRI SERVIN BC Diagnosis: Candidiasis of v ulva and vagina TAKE 1 TAB DAY 1 and 1 tab day 3 Last Documented On 6 10:07AM By GAYATHRI MORRISON ; [facility] Naproxen 500 MG Tablet 03/16/2016 - 03/21/2016 Provider: GAYATHRI MUHAMMAD Diagnosis: Encounter for surveillance of contraceptives, unspecified 1 BID USE DIRECTED W/FOOD DON'T EXCEED 2 IN 24 HOURS Last Documented On 6 9:22AM By GAYATHRI MORRISON ; [facility] Premium Condoms Lubricated Miscellaneous (not specified) 02/17/2016 - 03/18/2016 Provider: GAYATHRI MUHAMMAD Diagnosis: Acute vaginitis as directed USE DIRECTED Last Documented On 6 1:34PM By GAYATHRI MORRISON ; [facility] Fluconazole 150 MG Tablet 02/17/2016 - 02/19/2016 Prov ider: GAYATHRI MUHAMMAD Diagnosis: Acute vaginitis 1 daily Pt. is to take 1 now and then repeat in 3 days Last Documented On 6 1:29PM By GAYATHRI MORRISON ; [facility] Estradiol 1 MG Tablet 09/04/2015 - 11/03/2015 Provider: GAYATHRI SERVIN BC Diagnosis: Irregular menstr uation, unspecified One tablet daily TAKE 1 TABL ET DAILY AT ONSET OF BREAKTHROUGH BLEEDING AND COMPLETE DIRECTED Last Documented On 6 1:35PM By GAYATHRI MORRISON ; [facility] Naproxen 500 MG OR TABS 07/16/2014 - 08/20/2014 Provid er: GAYATHRI MUHAMMAD Diagnosis: DYSMENORRHEA USE DIRECTED DON'T EXCEED 2 TABS IN 24 HOURS Last Documented On 5 2:51PM By GAYATHRI MORRISON ; [facility] Medications Administered Includes: Administered Medications from this encounter No Administered Medications Recorded Vital Signs Includes: Vital Signs from this encounter Vital Name 07/21/2018 09:45A Blood Pressure Sitting (mmHg) 100/60 Height (in) 64 Weight (lb) 155.375 Body Mass Index (kg/m2) 26.7 BMI Percentile (percentile) 86 Body Surface Area (m2) 1.8 Last Documented: On 07/21/2018 9:49AM ; [facility] Results Includes: Results discussed during this encounter No Results Recorded For Specified Dates History of Present Illness Includes: History of Present Illness from this encounter HPI NARA ARECHIGA is a 17 year old female. Pt denies problems with the sertraline. She wants to continue on it. She started the OCP's in December 2017. She only took 2-3 pills. She thought 'it just messes with me. It makes me chavez or more emotional'. She just doesn't like control. She used condoms instead but about 90% of the time. She was not planning on getting . She was sick and went to the urgent care in [place] and her strep screen was positive: she was given amoxicillin and tramadol on 07/16/2018. She started having more nausea. She went to the ER the next day and had positive HCG. She was given azithromycin elixir to take instead. She is getting better from her throat. She still has symptoms. Social History Description Last Updated Sexually active with 2 partners in the l ast year 07/21/2018 Last Documented On 9 10:20AM ; [facility] Social history changed 03/22/2018 Last Documented On 9 9:43AM ; [facility] No recent emotional stress 03/22/2018 Last Documented On 9 9:43AM ; [facility] Not exercising regularly 03/22/2018 Last Documented On 9 9:43AM ; [facility] Sexually active 3 weeks condo ms 100% of the time 11/28/2017 Last Documented On 9 9:43AM ; [facility] Smoking status : Never smoker 10/26/2017 Last Documented On 9 9:43AM ; [facility] Currently in school 03/09/2017 Last Documented On 9 9:43AM ; [facility] Daily cola consumption OCC 03/09/2017 Last Documented On 9 9:43AM ; [facility] Daily tea consumption DAILY 03/09/2017 Last Documented On 9 9:43AM ; [facility] Education history 03/09/2017 Last Documented On 9 9:43AM ; [facility] Educational level 03/09/2017 Last Documented On 9 9:43AM ; [facility] Marital history SINGLE 03/09/2017 Last Documented On 9 9:43AM ; [facility] No consumption of alcohol 03/09/2017 Last Documented On 9 9:43AM ; [facility] Not using drugs 03/09/2017 Last Documented On 9 9:43AM ; [facility] Personal history 03/09/2017 Last Documented On 9 9:43AM ; [facility] Sexually active 03/09/2017 Last Documented On 9 9:43AM ; [facility] In monogamous relationship 03/09/2017 Last Documented On 9 9:43AM ; [facility] Procedures and Surgical History Includes: Procedures from this encounter Procedures Code Diagnosis Performing Provider Service L ocation Service Date [place] depression scale =0 Last Documented On 9 10:08AM ; [facility] Surgical History Last Updated History of surgery endometri osis Dr Mccrary: dx L/S with excision of endometriosis and left ovarian bx 04/06/2017 Last Documented On 9 9:43AM ; [facility] Surgical / procedural history laproscopy 07/27 Dr. Mccrary 03/09/2017 Last Documented On 9 9:43AM ; [facility] Medical History Includes: Medical History addressed during this encounter Description Last Updated LMP: 06/17/2018 pt 07/21/2018 Last Documented On 9 10:20AM ; [facility] Not using contraception Pt p regnant; Pt states she has endometriosis and doesn't know what would be best condoms 100% at present 07/21/2018 Last Documented On 9 10:20AM ; [facility] NO PRIMARY CARE PROVIDER Dr She Logan 07/21/2018 Last Documented On 9 10:20AM ; [facility] section 03/22/2018 Last Documented On 9 9:43AM ; [facility] Para 1 03/22/2018 Last Documented On 9 9:43AM ; [facility] Sexually active last coitus 2 weeks ago 03/22/2018 Last Documented On 9 9:43AM ; [facility] Infant is bottle-feeding 11/28/2017 Last Documented On 9 9:43AM ; [facility] Baby thriving C/S 10/11/17 AMH 39- /7 tomi Cheung 7# 11oz 11/28/2017 Last Documented On 9 9:43AM ; [facility] Last pap smear date 07/07/17 cultures, n ot pap 11/28/2017 Last Documented On 9 9:43AM ; [facility] History of depression MOB dx 's at 11 y old with meds since then; sertraline 100 mg; and her dad 04/06/2017 Last Documented On 9 9:43AM ; [facility] History of hematologic disor herman MOB and her mom. per pt low iron caused her mom to have seizures 04/06/2017 Last Documented On 9 9:43AM ; [facility] 1 03/09/2017 Last Documented On 9 9:43AM ; [facility] A colonoscopy was performed 2016 017 Last Documented On 9 9:43AM ; [facility] History of vaginitis 02/17/2016 Last Documented On 9 9:43AM ; [facility] ORAL SURGERY 2013 07/16/2014 Last Documented On 9 9:43AM ; [facility] History of anxiety disorder NOS 07/16/19 15 Last Documented On 9 9:43AM ; [facility] Family History Includes: Family History addressed during this encounter Description Last Updated Maternal history of hypertension MOM, DA D 09/04/2015 Last Documented On 9 9:43AM ; [facility] Paternal grandmother's history of diabet es mellitus PGM 09/04/2015 Last Documented On 9 9:43AM ; [facility] Family history of diabetes mellitus 04/0 12/2014 Last Documented On 9 9:43AM ; [facility] Review of Systems Includes: Review of Systems from this encounter No Review of Systems Recorded Mental Status Includes: Mental Status from this encounter Description Depression Functional Status Includes: Functional Status from this encounter No Functional Status Recorded Physical Exam Includes: Physical Exam from this encounter Allergies Includes: Active Allergies No Known Allergies Encounters Encounter Provider Location Date Check-In Time Check-Out Time Diagnosis 4 MONTH CHECK UP PHI RUSSELL MD [facility] PRODUCE ASSISTANT 9 9:41AM 10:21AM Depression Insurance Includes: Active Insurance Policies Plan Name Member ID Group # Subscriber Relationship Effect jacky Dates 1 - [facility] [id number] MIGUEL ARECHIGA Child Clinical Notes Includes: Clinical Notes from this encounter No Clinical Notes Recorded
--- OUTSIDE RECORDS SUMMARY | 2025-06-26 02:25 | XMS_ITS | Clinical Summary ---
Author Organization [facility] Address [address] [place] [address] Phone Care Team Providers Care Meat Grading Machine Operator Name Role Phone YVONNE ZHANG, PHI Omalley Unavailable [phone] Reason for Visit and Chief Complaint * PHONE CALL Plan of Treatment No Plan of Treatment Recorded Assessments Includes: Assessments from this encounter No Assessments Recorded Medical Equipment - Implanted Devices Includes: Current Devices No Medical Equipment Recorded Medications Includes: Medications discussed during this encounter and other current Medications New / Renewed during this visit PHI RUSSELL MD on 07/14/2018 Sertraline HCl 50MG Oral Tablet Provider: PHI RUSSELL MD 30 day supply: 30 tablet, 0 refills Diagnosis: Major depressive disorder, recurrent, unspecified One tablet daily Pharmacy: [facility] ([facility] [address] [facility], [id number] - Last Documented On 07/21/2018 10:18AM By PHI RUSSELL MD ; [facility] Current Medications (continue as prescribed) Sertraline HCl 50MG Oral Tablet 07/21/2018 Provider: PHI RUSSELL MD Diagnosis: Major depressive disorder, recurrent, unspecified One tablet daily Last Documented On 07/21/2018 10:30AM By PHI RUSSELL MD ; [facility] Sertraline HCl 50MG Oral Tablet 02/27/2018 Provider: PHI RUSSELL MD Diagnosis: One tablet daily Last Documented On 02/27/2018 5:48PM By PHI RUSSELL MD ; [facility] Medications Administered Includes: Administered Medications from this encounter No Administered Medications Recorded Results Includes: Results discussed during this encounter No Results Recorded For Specified Dates History of Present Illness Includes: History of Present Illness from this encounter No History of Present Illness Recorded Social History No Social History Recorded - Smoking Status Unknown Medical History Includes: Medical History addressed during this encounter No Medical History Recorded Family History Includes: Family History addressed during this encounter No Family History Recorded Review of Systems Includes: Review of Systems from this encounter No Review of Systems Recorded Mental Status Includes: Mental Status from this encounter No Mental Status Recorded Functional Status Includes: Functional Status from this encounter No Functional Status Recorded Physical Exam Includes: Physical Exam from this encounter No Physical Exam Recorded Allergies Includes: Active Allergies No Known Allergies Encounters Encounter Provider Location Date Check-In Time Check-Out Time Diagnosis * PHONE CALL PHI RUSSELL MD [facility] BECK TENDER 9 9:49AM 11:59PM Insurance Includes: Active Insurance Policies Plan Name Member ID Group # Subscriber Relationship Effect jacky Dates 1 - [facility] [id number] MIGUEL ARECHIGA Child Clinical Notes Includes: Clinical Notes from this encounter No Clinical Notes Recorded
--- OUTSIDE RECORDS SUMMARY | 2025-06-26 02:25 | XMS_ITS | Clinical Summary ---
Author Organization [facility] Address [address] [place] [address] Phone Care Team Providers Care Sales Inspector Name Role Phone YVONNE ZHANG, PHI Omalley Unavailable [phone] Reason for Visit and Chief Complaint MISSED MENSES Plan of Treatment No Plan of Treatment Recorded Assessments Includes: Assessments from this encounter No Assessments Recorded Medical Equipment - Implanted Devices Includes: Current Devices No Medical Equipment Recorded Medications Includes: Medications discussed during this encounter and other current Medications Current Medications (continue as prescribed) Sertraline HCl 50MG Oral Tablet 07/21/2018 Provider: PHI RUSSELL MD Diagnosis: Major depressive disorder, recurrent, unspecified One tablet daily Last Documented On 07/21/2018 10:30AM By PHI RUSSELL MD ; [facility] Sertraline HCl 50MG Oral Tablet 02/27/2018 Provider: PHI RUSSELL MD Diagnosis: One tablet daily Last Documented On 02/27/2018 5:48PM By PHI RUSSELL MD ; [facility] Medications Administered Includes: Administered Medications from this [...] Allergies Includes: Active Allergies No Known Allergies Insurance Includes: Active Insurance Policies Plan Name Member ID Group # Subscriber Relationship Effect jacky Dates 1 - [facility] [id number] MIGUEL ARECHIGA Child Clinical Notes Includes: Clinical Notes from this encounter No Clinical Notes Recorded
--- OUTSIDE RECORDS SUMMARY | 2025-06-26 02:25 | XMS_ITS | Clinical Summary ---
Author Organization [facility] Address [address] [place] [address] Care Team Providers Care Health Safety Manager Name Role Phone Salty Gordon MD Primary Care Provider [phone] Source Comments [facility] [employer] [facility],non-owned Affiliates and Associated Physician Practices is amultiple site organization consisting of ambulatory clinics and hospital sitesin [place], [place], [place] and [place]. This disclosure is being madepursuant to the Care Everywhere program and may not contain all information available regarding this patient. Last updated 18.XZERES [employer] [facility] Allergies No known active allergies Medications * [...] Comments Blood Pressure 107/73 08/14/2022 2:35 PM CATALOGUE MAKER Pulse 135 08/14/2022 2:35 PM CATALOGUE MAKER Temperature 36.9 C (98.5 F) 08/14/2022 2:35 PM CATALOGUE MAKER Respiratory Rate 24 08/14/2022 2:35 PM CATALOGUE MAKER Oxygen Saturation 98% 08/14/2022 2:35 PM CATALOGUE MAKER Inhaled Oxygen Concentration - - Weight 83.8 kg (184 lb 11.9 oz) 08/14/2022 8:41 AM CATALOGUE MAKER Height 162.6 cm (5' 4) 08/14/2022 8:41 AM CATALOGUE MAKER Body Mass Index 31.71 08/14/2022 8:41 AM CATALOGUE MAKER Plan of Treatment Health Maintenance Due Date [...] Subscriber ID:Not on file (Home) Address: [address] [place] [address] Payer ID:[id number] (NAIC) Type:O Address: [address] [place] [id number] [facility] MEDICAID Care Teams Health Safety Manager Relationship Specialty Start Date End Date Salty Gordon MD [address] [place] [address] PCP - General Internal Medicine 08/06/22
--- OUTSIDE RECORDS SUMMARY | 2025-06-26 02:25 | XMS_ITS | Clinical Summary ---
Author Organization [facility] Address [address] [place] [address] Phone Care Team Providers Care Outdoor Recreation Specialist Name Role Phone PHI RUSSELL MD Unavailable [phone] Reason for Visit and Chief Complaint The patient presents for a problem. - The Chief Complaint is: med refill sertraline and questions about endometriosis Problems Includes: Problems addressed during this encounter and other active Problems Current Visit Onset Date Resolved Date Provider [place] n Status Endometriosis Pelvic Peritoneum 03/22/2018 Unknown PHI RUSSELL MD Resolved Last Documented On 04/12/2018 11:50AM ; [facility] Note: was Closed. History of Depression 04/06/2017 Unknown PHI RUSSELL MD Resolved Last Documented On 04/12/2018 11:50AM ; [facility] Note: was Closed. History of Hematologic Disorders 04/06/2017 Unknown PHI RUSSELL MD Resolved Last Documented On 04/12/2018 11:50AM ; [facility] Note: was Closed. Plan of Treatment - Return to the clinic if condition worsens or new symptoms arise - Last Documented On 03/22/2018 5:08PM ; [facility] - Follow-up visit - Last Documented On 03/22/2018 5:08PM ; [facility] Assessments Includes: Assessments from this encounter Findings - Endometriosis of the pelvic peritoneum - Last Documented On 03/22/2018 5:08PM ; [facility] - Major depression, recurrent - Last Documented On 03/22/2018 5:08PM ; [facility] Medical Equipment - Implanted Devices Includes: Current Devices No Medical Equipment Recorded Medications Includes: Medications discussed during this encounter and other current Medications New / Renewed during this visit GAYATHRI OCAMPO RN ROMERO on 03/22/2018 Sertraline HCl 50MG Oral Tablet Provider: GAYATHRI OCAMPO RN Kari P 30 day supply: 30 tablet, 3 refills Diagnosis: Major depressive disorder, recurrent, unspecified One tablet daily Pharmacy: [facility] [address] , [facility], [phone] - Last Documented On 07/14/2018 11:47AM By PHI RUSSELL MD ; [facility] Naproxen 500MG Oral Tablet Provider: GAYATHRI OCAMPO RN Kari P 10 day supply: 20 tablet, 6 refills Diagnosis: Endometriosis, unspecified One tablet twice a day USE A S DIRECTED DON'T EXCEED 2 TABS IN 24 HOURS Pharmacy: [facility] [address] , [facility], [id number] - Last Documented On 8 5:06PM By GAYATHRI ASENCIO ; [facility] Current Medications (continue as prescribed) Sertraline HCl 50MG Oral Tablet 07/21/2018 Provider: PHI RUSSELL MD Diagnosis: Major depressive disorder, recurrent, unspecified One tablet daily Last Documented On 07/21/2018 10:30AM By PHI RUSSELL MD ; [facility] Sertraline HCl 50MG Oral Tablet 02/27/2018 Provider: PHI RUSSELL MD Diagnosis: One tablet daily Last Documented On 02/27/2018 5:48PM By PHI RUSSELL MD ; [facility] Past Medications on file Ferrous Gluconate 324 (37.5 Fe)MG Oral Tablet 08/11/2017 - 12/09/2017 Provider: GAYATHRI SERVIN Diagnosis: Anemia complicat ing the puerperium One tablet twice a day Last Documented On 8 8:54AM By GAYATHRI MORRISON ; [facility] Nitrofurantoin Monohyd Macro 100MG Oral Capsule 07/07/2017 - 07/14/2017 Provider: GAYATHRI SERVIN Diagnosis: Hematuria, unspe cified One tablet twice a day TAKE DIRECTED W/FOOD Last Documented On 7 10:46AM By GAYATHRI MORRISON ; [facility] Classic 28-0.8MG Oral Tablet 03/09/2017 - 03/04/2018 Provider: GAYATHRI SERVIN Diagnosis: Encounter for test, result positive 1 daily Last Documented On 7 2:22PM By GAYATHRI MORRISON ; [facility] Quasense 0.15-0.03MG Oral Tablet 08/10/2016 - 11/10/19 17 Provider: DAVID MCCRARY MD Diagnosis: One tablet daily Last Documented On 08/10/2016 9:06AM By DAVID MCCRARY MD ; [facility] Fluconazole 150 MG Tablet 05/17/2016 - 05/19/2016 Provider: GAYATHRI OCAMPO RN ROMERO Diagnosis: Candidiasis of v ulva and vagina TAKE 1 TAB DAY 1 and 1 tab day 3 Last Documented On 6 10:07AM By GAYATRHI MORRISON ; [facility] Naproxen 500 MG Tablet 03/16/2016 - 03/21/2016 Provider: GAYATHRI OCAMPO RN ROMERO Diagnosis: Encounter for surveillance of contraceptives, unspecified 1 BID USE DIRECTED W/FOOD DON'T EXCEED 2 IN 24 HOURS Last Documented On 6 9:22AM By GAYATHRI MORRISON ; [facility] Premium Condoms Lubricated Miscellaneous (not specified) 02/17/2016 - 03/18/2016 Provider: GAYATHRI OCAMPO RN ROMERO Diagnosis: Acute vaginitis as directed USE DIRECTED Last Documented On 6 1:34PM By GAYATHRI MORRISON ; [facility] Fluconazole 150 MG Tablet 02/17/2016 - 02/19/2016 Prov ider: GAYATHRI OCAMPO RN ROMERO BC Diagnosis: Acute vaginitis 1 daily Pt. is to take 1 now and then repeat in 3 days Last Documented On 6 1:29PM By GAYATHRI MORRISON ; [facility] Estradiol 1 MG Tablet 09/04/2015 - 11/03/2015 Provider: GAYATHRI SERVIN BC Diagnosis: Irregular menstr uation, unspecified One tablet daily TAKE 1 TABL ET DAILY AT ONSET OF BREAKTHROUGH BLEEDING AND COMPLETE DIRECTED Last Documented On 6 1:35PM By GAYATHRI MORRISON ; [facility] Naproxen 500 MG OR TABS 07/16/2014 - 08/20/2014 Provid er: GAYATHRI MUHAMMAD Diagnosis: DYSMENORRHEA USE DIRECTED DON'T EXCEED 2 TABS IN 24 HOURS Last Documented On 5 2:51PM By GAYATHRI MORRISON ; [facility] Medications Administered Includes: Administered Medications from this encounter No Administered Medications Recorded Vital Signs Includes: Vital Signs from this encounter Vital Name 03/22/2018 04:16P Blood Pressure Sitting (mmHg) 100/74 Height (in) 64 Weight (lb) 163 Body Mass Index (kg/m2) 28.0 BMI Percentile (percentile) 90 Body Surface Area (m2) 1.8 Last Documented: On 03/22/2018 4:20PM ; [facility] Results Includes: Results discussed during this encounter No Results Recorded For Specified Dates History of Present Illness Includes: History of Present Illness from this encounter DAYAN ARECHIGA is a 17 year old female. - Medication list reviewed. - Feeling tired or poorly d/t endometriosis and started menses today - Feeling tired (fatigue) - No emotional lability - No initial insomnia - No loss of interest in friends and family - No low self-esteem Social History Description Last Updated Social history changed 03/22/2018 Last Documented On 8 5:08PM ; [facility] No recent emotional stress 03/22/2018 Last Documented On 8 5:08PM ; [facility] Not exercising regularly 03/22/2018 Last Documented On 8 5:08PM ; [facility] Sexually active 3 weeks condo ms 100% of the time 11/28/2017 Last Documented On 8 4:15PM ; [facility] Smoking status : Never smoker 10/26/2017 Last Documented On 8 4:15PM ; [facility] control is being practiced 017 Last Documented On 8 4:15PM ; [facility] Daily cola consumption OCC 03/09/2017 Last Documented On 8 4:15PM ; [facility] Daily tea consumption DAILY 03/09/2017 Last Documented On 8 4:15PM ; [facility] Education history 03/09/2017 Last Documented On 8 4:15PM ; [facility] Educational level 03/09/2017 Last Documented On 8 4:15PM ; [facility] Marital history SINGLE 03/09/2017 Last Documented On 8 4:15PM ; [facility] No consumption of alcohol 03/09/2017 Last Documented On 8 4:15PM ; [facility] Not using drugs 03/09/2017 Last Documented On 8 4:15PM ; [facility] Personal history 03/09/2017 Last Documented On 8 4:15PM ; [facility] Sexually active 03/09/2017 Last Documented On 8 4:15PM ; [facility] Procedures and Surgical History Includes: Procedures from this encounter Procedures Code Diagnosis Performing Provider Service L ocation Service Date education and instructions handout given on [facility] for review, discussed use of progestin only contraception for sx. control. Pt. undecided at present, and will call for f/u appt. if desired. Serotonin syndrome precautions given and all questions answered Last Documented On 8 5:07PM ; [facility] Clinical summary provided to patient Last Documented On 8 5:07PM ; [facility] Surgical History Last Updated History of surgery endometri osis Dr Mccrary: dx L/S with excision of endometriosis and left ovarian bx 04/06/2017 Last Documented On 8 4:15PM ; [facility] Surgical / procedural history laproscopy 07/27 Dr. Mccrary 03/09/2017 Last Documented On 8 4:15PM ; [facility] Medical History Includes: Medical History addressed during this encounter Description Last Updated Contraception: Pt states she has endometriosis and doesn't know what would be best condoms 100% at present 03/22/2018 Last Documented On 8 5:08PM ; [facility] section 03/22/2018 Last Documented On 8 5:08PM ; [facility] LMP: 03/22/2018 03/22/2018 Last Documented On 8 5:08PM ; [facility] NO PRIMARY CARE PROVIDER Doesn't have on e 03/22/2018 Last Documented On 8 5:08PM ; [facility] Para 1 03/22/2018 Last Documented On 8 5:08PM ; [facility] Sexually active last coitus 2 weeks ago 03/22/2018 Last Documented On 8 5:08PM ; [facility] Infant is bottle-feeding 11/28/2017 Last Documented On 8 4:15PM ; [facility] Infant is not breast-feeding 11/28/2017 Last Documented On 8 4:15PM ; [facility] Baby thriving C/S 10/11/17 AMH 39- 07/17 tomi baig Luli Cheung 7# 11oz 11/28/2017 Last Documented On 8 4:15PM ; [facility] Last pap smear date 07/07/17 cultures, n ot pap 11/28/2017 Last Documented On 8 4:15PM ; [facility] History of depression MOB dx 's at 11 y old with meds since then; sertraline 100 mg; and her dad 04/06/2017 Last Documented On 8 4:15PM ; [facility] History of hematologic disor herman MOB and her mom. per pt low iron caused her mom to have seizures 04/06/2017 Last Documented On 8 4:15PM ; [facility] 1 03/09/2017 Last Documented On 8 4:15PM ; [facility] A colonoscopy was performed 2016 017 Last Documented On 8 4:15PM ; [facility] History of vaginitis 02/17/2016 Last Documented On 8 4:15PM ; [facility] ORAL SURGERY 2013 07/16/2014 Last Documented On 8 4:15PM ; [facility] History of anxiety disorder NOS 07/16/19 15 Last Documented On 8 4:15PM ; [facility] Family History Includes: Family History addressed during this encounter Description Last Updated Maternal history of hypertension MOM, HEATHER Verdugo 09/04/2015 Last Documented On 8 4:15PM ; [facility] Paternal grandmother's history of diabet es mellitus PGM 09/04/2015 Last Documented On 8 4:15PM ; [facility] Family history of diabetes mellitus 04/0 12/2014 Last Documented On 8 4:15PM ; [facility] Review of Systems Includes: Review of Systems from this encounter Systemic: No fever, no chills, and no recent weight change. Head: No headache. Eyes: No vision problems. Cardiovascular: No chest pain or discomfort. Pulmonary: No dyspnea. Gastrointestinal: No nausea and no vomiting. Abdominal pain. Psychological: No anxiety and no depression. Mental Status Includes: Mental Status from this encounter Description Cognitive functioning was no rmal Oriented to time, place, and person Thought processes were not i mpaired No anxiety The thought content revealed no impairment No suicidal ideation No suicidal intent Major depression, recurrent Functional Status Includes: Functional Status from this encounter No Functional Status Recorded Physical Exam Includes: Physical Exam from this encounter Allergies Includes: Active Allergies No Known Allergies Encounters Encounter Provider Location Date Check-In Time Check-Out Time Diagnosis PROBLEM VISIT GAYATHRI OCAMPO RN WHNP [facility] [employer] 03/22/20 18 3:59PM 4:56PM Endometriosis Pelvic Peritoneum,Major Depression, Recurrent Insurance Includes: Active Insurance Policies Plan Name Member ID Group # Subscriber Relationship Effect jacky Dates 1 - [facility] [id number] MIGUEL ARECHIGA Child Clinical Notes Includes: Clinical Notes from this encounter No Clinical Notes Recorded
--- OUTSIDE RECORDS SUMMARY | 2025-06-26 02:25 | XMS_ITS ---
Care Plan - [facility] Created on: June 26, 2025 NARA ARECHIGA : 2000 Sex: Female Author Organization [facility] Address [address] [place] [address] Phone Care Team Providers Care Major Account Representative Name Role Phone YVONNE ZHANG, PHI Omalley Unavailable [phone]
--- OUTSIDE RECORDS SUMMARY | 2025-06-26 02:25 | XMS_ITS | Clinical Summary ---
Author Organization [facility] Address [address] [place] [address] Care Team Providers Care Switch Inspector Name Role Phone Salty Gordon MD Primary Care Provider [phone] Allergies No known active allergies Medications sertraline (ZOLOFT) 50 mg tablet Take 50 mg by mouth daily. 6 Active prenat.vits,bill, ypy-kegc-phntf ( VITAMIN) tablet Take by mouth daily. [...] on file Legal Sex Female 1:45 AM SAFETY COORDINATOR Gender Identity Not on file Sexual Orientation [...] Most Recently Relevant to Health Maintenance Insurance [employer] ACCESS [employer] ACCESS CHOICE ACCESS [place] ANTH ACCESS ANTH ACCESS Advance Directives For more information, please contact: [phone] * Full Code (Latest Code Status on File) Date Activated Date Inactivated Comments 10/11/2017 4:27 PM 10/14/2017 11:53 PM * Full Code Date Activated Date Inactivated Comments 10/10/2017 4:36 PM 10/11/2017 4:27 PM Full CPR in ca se of cardiopulmonary arrest Care Teams Switch Inspector Relationship Specialty Start Date End Date Salty Gordon MD [address] [place] [address] PCP - General Family Medicine 08/11/22
--- OUTSIDE RECORDS SUMMARY | 2025-06-26 02:25 | XMS_ITS ---
Author Organization [facility] Address [address] [place] [address] Phone Care Team Providers Care Counselor Manager Name Role Phone PHI RUSSELL MD Unavailable [phone] Problems Includes: Active, inactive, and resolved Problems All Visits Onset Date Resolved Date Provider Condition S tatus Endometriosis Pelvic Peritoneum 03/22/2018 Unknown PHI RUSSELL MD Resolved Last Documented On 04/12/2018 11:50AM ; [facility] Note: was Closed. History of Depression 04/06/2017 Unknown PHI RUSSELL MD Resolved Last Documented On 04/12/2018 11:50AM ; [facility] Note: was Closed. History of Hematologic Disorders 04/06/2017 Unknown PHI RUSSELL MD Resolved Last Documented On 04/12/2018 11:50AM ; [facility] Note: was Closed. Plan of Treatment Findings Encounter Date Ordered follow-up visit PROBLEM VISIT with GAYATHRI OCAMPO RN [facility] 03/22/2018 Last Documented On 8 5:08PM ; [facility] Ordered return to the clinic if condition worsens or new symptoms arise PROBLEM VISIT with GAYATHRI OCAMPO RN [facility] 03/22/2018 Last Documented On 8 5:08PM ; [facility] Follow-up for re-examination for 3 months with a BP check and on OCP's POST VISIT with PHI RUSSELL MD 11/28/2017 Last Documented On 8 11:12AM ; [facility] Ordered patient to call if p roblem develops POST VISIT with PHI RUSSELL MD 11/28/2017 Last Documented On 8 11:12AM ; [facility] She will keep a menstrual diary POST VISI T with PHI RUSSELL MD 11/28/2017 Last Documented On 8 11:12AM ; [facility] Ordered Clinical summary pro vided to patient MISSED MENSES with GAYATHRI OCAMPO RN [facility] 03/09/2017 Last Documented On 7 4:23PM ; [facility] Ordered Clinical summary pro vided to patient PROCEDURE OFFICE with GAYATHRI OCAMPO RN [facility] 03/16/2016 Last Documented On 6 9:06AM ; [facility] Ordered Clinical summary pro vided to patient PROBLEM VISIT with GAYATHRI OCAMPO RN [facility] 02/17/2016 Last Documented On 6 1:37PM ; [facility] Ordered Clinical summary pro vided to patient 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 OCAMPO RN [facility] 09/04/2015 Last Documented On 6 1:31PM ; [facility] Ordered Clinical summary pro vided to patient 1 MONTH CHECK with GAYATHRI OCAMPO RN [facility] 10/14/2014 Last Documented On 5 4:06PM ; [facility] Ordered Clinical summary pro vided to patient 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 OCAMPO RN [facility] 07/16/2014 Last Documented On 5 3:00PM ; [facility] Instructions to patient Instructions for patient : B reast Self Exam discussed and technique reviewed Last Documented On 7 2:07PM ; [facility] Use a condom during sexual i ntercourse Last Documented On 7 2:07PM ; [facility] Instructed to call if excess jacky bleeding or abdominal/pelvic pain Last Documented On 7 2:07PM ; [facility] Recommend diet and exercise at least 30 min three times per week Last Documented On 7 2:07PM ; [facility] Return to the clinic if cond ition worsens or new symptoms arise Last Documented On 6 2:07PM ; [facility] ER/ Pain Precautions Last Documented On 6 2:07PM ; [facility] Instructions for patient : K eep the area around the vulva dry. Allow the area to have exposure to air. Avoid irritants such as fabric softeners and perfumed soaps.~ Last Documented On 6 1:30PM ; [facility] Instructions for patient : B reast Self Exam discussed and technique reviewed Last Documented On 6 1:00PM ; [facility] Use a condom during sexual i ntercourse Last Documented On 6 1:00PM ; [facility] Instructed to call if excess jacky bleeding or abdominal/pelvic pain Last Documented On 6 1:00PM ; [facility] Recommend diet and exercise at least 30 min three times per week Last Documented On 6 1:00PM ; [facility] Instructions for patient : B reast Self Exam discussed and technique reviewed Last Documented On 5 1:52PM ; [facility] Use a condom during sexual i ntercourse Last Documented On 5 1:52PM ; [facility] Instructed to call if excess jacky bleeding or abdominal/pelvic pain Last Documented On 5 1:52PM ; [facility] Recommend diet and exercise at least 30 min three times per week Last Documented On 5 1:52PM ; [facility] Education and Decision Aids were provided during visit for: She will keep a menstrual di kahlil Last Documented On 8 11:02AM ; [facility] Patient Education: Daily bill cium and vitamin D Last Documented On 7 2:07PM ; [facility] Patient counseling : Use of oral contraceptives discussed in detail including rare occurrence of heart attack, stroke, and leg clots. Patient understands that smoking increases the risk of serious side effects with any steroid-based contraceptive method Last Documented On 7 9:07AM ; [facility] Patient education :vaginal h ygiene, PID precaution review, condoms 100% if sexually active Last Documented On 6 1:31PM ; [facility] Candidiasis Vulvovaginitis I nformation Sheet Given Last Documented On 6 1:30PM ; [facility] Patient education RE: warnin g signals associated with hormonal contraceptive use including abdominal, chest, or leg pain, headaches or visual disturbances Last Documented On 6 1:00PM ; [facility] Patient Education: Daily bill cium and vitamin D Last Documented On 6 1:00PM ; [facility] Discussed smoking and drug u se Last Documented On 5 1:52PM ; [facility] Patient education RE: nima reese signals associated with hormonal contraceptive use including abdominal, chest, or leg pain, headaches or visual disturbances Last Documented On 5 1:52PM ; [facility] Inquiry and counseling about contraceptive practices Last Documented On 5 2:59PM ; [facility] Patient Education: Daily bill cium and vitamin D Last Documented On 5 1:52PM ; [facility] Assessments Includes: Assessments for all patient encounters Findings Encounter Date Depression 4 MONTH CHECK UP with PHI GARCIA MD 07/21/2018 Last Documented On 9 10:20AM ; [facility] Endometriosis of the pelvic peritoneum P ROBLEM VISIT with GAYATHRI OCAMPO RN [facility] 03/22/2018 Last Documented On 8 5:08PM ; [facility] Major depression, recurrent PROBLEM VISIT with Shahram OCAMPO RN [facility] 03/22/2018 Last Documented On 8 5:08PM ; [facility] Contraceptive management POST VISIT with PHI RUSSELL MD 11/28/2017 Last Documented On 8 11:12AM ; [facility] Routine history a nd physical POST VISIT with PHI RUSSELL MD 11/28/2017 Last Documented On 8 11:12AM ; [facility] Routine history and physical POST OP VISIT with GAYATHRI OCAMPO RN [facility] 10/26/2017 Last Documented On 8 11:58AM ; [facility] Dr. Mccrary MISSED MENSES with GAYATHRI OCAMPO RN [facility] 03/09/2017 Last Documented On 7 4:23PM ; [facility] NORMAL FEMALE EXAM MISSED MENSES with GAYATHRI PEREZ RN [facility] 03/09/2017 Last Documented On 7 4:23PM ; [facility] with threatened MISSE D MENSES with GAYATHRI OCAMPO RN [facility] 03/09/2017 Last Documented On 7 4:23PM ; [facility] Visit for: exam wi th positive result MISSED MENSES with GAYATHRI SERVIN 03/09/2017 Last Documented On 7 4:23PM ; [facility] Contraceptive management POST OP VISIT with DAVID MCCRARY MD 08/10/2016 Last Documented On 7 9:08AM ; [facility] Endometriosis POST OP VISIT with DAVID MCCRARY MD 08/10/2016 Last Documented On 7 9:08AM ; [facility] POST OP VISIT POST OP VISIT with DAVID MCCRARY MD 08/10/2016 Last Documented On 7 9:08AM ; [facility] Contraceptive management CONSULTATION with DAVID MCCRARY MD 07/06/2016 Last Documented On 6 4:42PM ; [facility] Dyspareunia CONSULTATION with DAVID MCCRARY MD 07/06/2016 Last Documented On 6 4:42PM ; [facility] Female pelvic pain CONSULTATION with DAVID ESPINAL MD 07/06/2016 Last Documented On 6 4:42PM ; [facility] Cyst on the left ovary vs. d ominant follicle PELVIC W/TVT with GAYATHRI OCAMPO RN [facility] 04/12/2016 Last Documented On 6 4:27PM ; [facility] Encounter for implantable gustafson bdermal contraceptive PROCEDURE OFFICE with GAYATHRI OCAMPO RN [facility] 03/16/2016 Last Documented On 6 9:06AM ; [facility] Dyspareunia PROBLEM VISIT with GAYATHRI SERVIN 02/17/2016 Last Documented On 6 1:37PM ; [facility] Encounter for implantable gustafson bdermal contraceptive PROBLEM VISIT with GAYATHRI SERVIN 02/17/2016 Last Documented On 6 1:37PM ; [facility] Ovarian cyst simple cyst vs. 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 Pierce [facility] 09/04/2015 Last Documented On 6 1:31PM ; [facility] Encounter for implantable gustafson bdermal contraceptive 1 MONTH CHECK with GAYATHRI OCAMPO RN [facility] 10/14/2014 Last Documented On 5 4:06PM ; [facility] Contraceptive surveillance PROCEDURE OFFICE with GAYATHRI OCAMPO RN [facility] 09/11/2014 Last Documented On 5 4:24PM ; [facility] Contraceptive management 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 OCAMPO RN [facility] 07/16/2014 Last Documented On 5 3:00PM ; [facility] Dysmenorrhea 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 OCAMPO RN [facility] 07/16/2014 Last Documented On 5 3:00PM ; [facility] Routine gynecological exam 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 with ASAD OCAMPO RN [facility] 07/16/2014 Last Documented On 5 3:00PM ; [facility] SCREENING FOR STD 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 Trevino RN [facility] 07/16/2014 Last Documented On 5 3:00PM ; [facility] Instructions Includes: Instructions for all patient encounters Instructions to patient Instructions for patient : B reast Self Exam discussed and technique reviewed Last Documented On 7 2:07PM ; [facility] Use a condom during sexual i ntercourse Last Documented On 7 2:07PM ; [facility] Instructed to call if excess jacky bleeding or abdominal/pelvic pain Last Documented On 7 2:07PM ; [facility] Recommend diet and exercise at least 30 min three times per week Last Documented On 7 2:07PM ; [facility] Return to the clinic if cond ition worsens or new symptoms arise Last Documented On 6 2:07PM ; [facility] ER/ Pain Precautions Last Documented On 6 2:07PM ; [facility] Instructions for patient : K eep the area around the vulva dry. Allow the area to have exposure to air. Avoid irritants such as fabric softeners and perfumed soaps.~ Last Documented On 6 1:30PM ; [facility] Instructions for patient : B reast Self Exam discussed and technique reviewed Last Documented On 6 1:00PM ; [facility] Use a condom during sexual i ntercourse Last Documented On 6 1:00PM ; [facility] Instructed to call if excess jacky bleeding or abdominal/pelvic pain Last Documented On 6 1:00PM ; [facility] Recommend diet and exercise at least 30 min three times per week Last Documented On 6 1:00PM ; [facility] Instructions for patient : B reast Self Exam discussed and technique reviewed Last Documented On 5 1:52PM ; [facility] Use a condom during sexual i ntercourse Last Documented On 5 1:52PM ; [facility] Instructed to call if excess jacky bleeding or abdominal/pelvic pain Last Documented On 5 1:52PM ; [facility] Recommend diet and exercise at least 30 min three times per week Last Documented On 5 1:52PM ; [facility] Education and Decision Aids were provided during visit for: She will keep a menstrual di kahlil Last Documented On 8 11:02AM ; [facility] Patient Education: Daily bill cium and vitamin D Last Documented On 7 2:07PM ; [facility] Patient counseling : Use of oral contraceptives discussed in detail including rare occurrence of heart attack, stroke, and leg clots. Patient understands that smoking increases the risk of serious side effects with any steroid-based contraceptive method Last Documented On 7 9:07AM ; [facility] Patient education :vaginal h ygiene, PID precaution review, condoms 100% if sexually active Last Documented On 6 1:31PM ; [facility] Candidiasis Vulvovaginitis I nformation Sheet Given Last Documented On 6 1:30PM ; [facility] Patient education RE: nima reese signals associated with hormonal contraceptive use including abdominal, chest, or leg pain, headaches or visual disturbances Last Documented On 6 1:00PM ; [facility] Patient Education: Daily bill cium and vitamin D Last Documented On 6 1:00PM ; [facility] Discussed smoking and drug u se Last Documented On 5 1:52PM ; [facility] Patient education RE: saritan g signals associated with hormonal contraceptive use including abdominal, chest, or leg pain, headaches or visual disturbances Last Documented On 5 1:52PM ; [facility] Inquiry and counseling about contraceptive practices Last Documented On 5 2:59PM ; [facility] Patient Education: Daily bill cium and vitamin D Last Documented On 5 1:52PM ; [facility] Medical Equipment - Implanted Devices Includes: Current and historical Devices No Medical Equipment Recorded Medications Includes: Current and historical Medications Current Medications (continue as prescribed) Sertraline HCl 50MG Oral Tablet 07/21/2018 Provider: PHI RUSSELL MD Diagnosis: Major depressive disorder, recurrent, unspecified One tablet daily Last Documented On 07/21/2018 10:30AM By PHI RUSSELL MD ; [facility] Sertraline HCl 50MG Oral Tablet 02/27/2018 Provider: PHI RUSSELL MD Diagnosis: One tablet daily Last Documented On 02/27/2018 5:48PM By PHI RUSSELL MD ; [facility] Past Medications on file Sertraline HCl 50MG Oral Tablet 07/14/2018 - 07/21/2018 Provider: PHI RUSSELL MD Diagnosis: Major depressive disorder, recurrent, unspecified One tablet daily Last Documented On 07/21/2018 10:18AM By PHI RUSSELL MD ; [facility] Sertraline HCl 50MG Oral Tablet 03/22/2018 - 07/14/2018 Provider: GAYATHRI OCAMPO RN [facility] Diagnosis: Major depressive disorder, recurrent, unspecified One tablet daily Last Documented On 07/14/2018 11:47AM By PHI RUSSELL MD ; [facility] Naproxen 500MG Oral Tablet 03/22/2018 - 05/31/2018 Provider: GAYATHRI SERVIN BC Diagnosis: Endometriosis, unspecified One tablet twice a day USE A S DIRECTED DON'T EXCEED 2 TABS IN 24 HOURS Last Documented On 8 5:06PM By GAYATHRI MORRISON ; [facility] Sertraline HCl 50MG Oral Tablet 01/26/2018 - 8 Provider: PHI RUSSELL MD Diagnosis: One tablet daily Last Documented On 02/27/2018 5:42PM By PHI RUSSELL MD ; [facility] Lo Loestrin Fe 1 MG-10 MCG /10 MCG Oral Tablet 11/28/2017 - 08/09/2018 Provider: PHI RUSSELL MD Diagnosis: Encounter for in itial prescription of contraceptive pills One tablet daily Last Documented On 9 7:54AM By GAYATHRI MORRISON ; [facility] Sertraline HCl 50MG Oral Tablet 10/04/2017 - 01/26/2018 Provider: PHI RUSSELL MD Diagnosis: Oth mental disor ders complicating , third trimester One tablet daily Last Documented On 01/26/2018 5:57PM By PHI RUSSELL MD ; [facility] Ferrous Gluconate 324 (37.5 Fe)MG Oral Tablet 08/11/2017 - 12/09/2017 Provider: GAYATHRI SERVIN BC Diagnosis: Anemia complicat ing the puerperium One tablet twice a day Last Documented On 8 8:54AM By GAYATHRI MORRISON ; [facility] Nitrofurantoin Monohyd Macro 100MG Oral Capsule 07/07/2017 - 07/14/2017 Provider: GAYATHRI SERVIN BC Diagnosis: Hematuria, unspe cified One tablet twice a day TAKE DIRECTED W/FOOD Last Documented On 7 10:46AM By GAYATHRI MORRISON ; [facility] Sertraline HCl 50MG Oral Tablet 07/07/2017 - 10/04/2017 Provider: GAYATHRI SERVIN BC Diagnosis: Major depressive disorder, recurrent, unspecified One tablet daily Last Documented On 10/04/2017 3:33PM By HPI RUSSELL MD ; [facility] Sertraline HCl 100MG Oral Tablet 07/06/2017 - 07/07/2017 Provider: PHI Verdugo Diagnosis: Oth mental disor ders comp , second trimester One tablet daily Last Documented On 7 10:33AM By GAYATHRI ASENCIO ; [facility] Ferrous Gluconate 324 (37.5 Fe)MG Oral Tablet 05/05/2017 - 08/11/2017 Provider: GAYATHRI MUHAMMAD Diagnosis: Anemia complicat ing the puerperium One tablet daily Last Documented On 8 8:49AM By GAYATHRI ASENCIO ; [facility] Classic 28-0.8MG Oral Tablet 03/09/2017 - Provider: Diagnosis: Last Documented On 7 1:21PM By MELINDA LOVETT ; [facility] Classic 28-0.8MG Oral Tablet 03/09/2017 - 03/04/2018 Provider: GAYATHRI MUHAMMAD Diagnosis: Encounter for test, result positive 1 daily Last Documented On 7 2:22PM By GAYATHRI MORRISON ; [facility] Lo Loestrin Fe 1 MG-10 MCG / 10 MCG Oral Tablet 08/18/2016 - 11/28/2017 Provider: DAVID MCCRARY MD Diagnosis: One tablet daily Last Documented On 11/28/2017 11:10AM By PHI RUSSELL MD ; [facility] Sertraline HCl 50MG Oral Tablet 08/10/2016 - 8 Provider: Diagnosis: Last Documented On 8 10:28AM By MELINDA LOVETT ; [facility] Quasense 0.15-0.03MG Oral Tablet 08/10/2016 - 11/10/19 17 Provider: DAVID MCCRARY MD Diagnosis: One tablet daily Last Documented On 08/10/2016 9:06AM By DAVID MCCRARY MD ; [facility] vicoden 5/500mg Tablet 07/06/2016 - 08/10/2016 Provide r: Diagnosis: Last Documented On 7 8:48AM By BRITNI LOVETT ; [facility] Fluconazole 150 MG Tablet 05/17/2016 - 05/19/2016 Provider: GAYATHRI MUHAMMAD Diagnosis: Candidiasis of v ulva and vagina TAKE 1 TAB DAY 1 and 1 tab day 3 Last Documented On 6 10:07AM By GAYATHRI MORRISON ; [facility] Naproxen 500 MG Tablet 03/16/2016 - 03/21/2016 Provider: GAYATHRI SERVIN BC Diagnosis: Encounter for surveillance of contraceptives, unspecified 1 BID USE DIRECTED W/FOOD DON'T EXCEED 2 IN 24 HOURS Last Documented On 6 9:22AM By GAYATHRI MORRISON ; [facility] Premium Condoms Lubricated Miscellaneous (not specified) 02/17/2016 - 03/18/2016 Provider: GAYATHRI MUHAMMAD Diagnosis: Acute vaginitis as directed USE DIRECTED Last Documented On 6 1:34PM By GAYATHRI MORRISON ; [facility] Fluconazole 150 MG Tablet 02/17/2016 - 02/19/2016 Prov ider: GAYATHRI SERVIN BC Diagnosis: Acute vaginitis 1 daily Pt. is to take 1 now and then repeat in 3 days Last Documented On 6 1:29PM By GAYATHRI MORRISON ; [facility] Estradiol 1 MG Tablet 09/04/2015 - 11/03/2015 Provider: GAYATHRI SERVIN BC Diagnosis: Irregular menstr uation, unspecified One tablet daily TAKE 1 TABL ET DAILY AT ONSET OF BREAKTHROUGH BLEEDING AND COMPLETE DIRECTED Last Documented On 6 1:35PM By GAYATHRI MORRISON ; [facility] Naproxen 500 MG OR TABS 09/11/2014 - 03/16/2016 Provider: GAYATHRI MUHAMMAD Diagnosis: CONTRACEPT SURVE ILL NOS USE DIRECTED W/FOOD DON'T EXCEED 2 IN 24 HOURS Last Documented On 6 9:04AM By GAYATHRI MORRISON ; [facility] Nexplanon 68 MG SC IMPL 09/11/2014 - 03/16/2016 Provid er: Diagnosis: Last Documented On 6 9:03AM By GAYATHRI MORRISON ; [facility] Escitalopram Oxalate 10 MG OR TABS 07/16/2014 - 2016 Provider: Diagnosis: Last Documented On 7 8:48AM By BRITNI LOVETT ; [facility] Naproxen 500 MG OR TABS 07/16/2014 - 08/20/2014 Provid er: GAYATHRI SERVIN Diagnosis: DYSMENORRHEA USE DIRECTED DON'T EXCEED 2 TABS IN 24 HOURS Last Documented On 5 2:51PM By GAYATHRI SERVIN- ; [facility] Medications Administered Includes: Administered Medications in patient's chart Medications Administered Diagnosis Date Pro vider Gardasil 9 0.5 ML IM SUSP Encounter for immunization 0 09/16/2015 GAYATHRI SERVIN BC gardasil left deltoid IM, pt tolerated w ell Last Documented On 6 4:23PM By DAMARI MENA MA ; [facility] Results Includes: Results from 06/26/2024 through 06/26/2025 No Results Recorded For Specified Dates History of Present Illness History of Present Illness not supported for this document type No History of Present Illness Recorded Social History Description Last Updated Sexually active with 2 partners in the l ast year 07/21/2018 Last Documented On 9 10:20AM ; [facility] Social history changed 03/22/2018 Last Documented On 8 5:08PM ; [facility] No recent emotional stress 03/22/2018 Last Documented On 8 5:08PM ; [facility] Not exercising regularly 03/22/2018 Last Documented On 8 5:08PM ; [facility] Sexually active 3 weeks condo ms 100% of the time 11/28/2017 Last Documented On 8 11:12AM ; [facility] [facility] Smoking status : Never smoker 10/26/2017 Last Documented On 8 11:58AM ; [facility] control is being practiced 017 Last Documented On 7 4:23PM ; [facility] Currently in school 03/09/2017 Last Documented On 7 4:23PM ; [facility] Daily cola consumption OCC 03/09/2017 Last Documented On 7 4:23PM ; [facility] Daily tea consumption DAILY 03/09/2017 Last Documented On 7 4:23PM ; [facility] Education history 03/09/2017 Last Documented On 7 4:23PM ; [facility] Educational level 03/09/2017 Last Documented On 7 4:23PM ; [facility] Marital history SINGLE 03/09/2017 Last Documented On 7 4:23PM ; [facility] No consumption of alcohol 03/09/2017 Last Documented On 7 4:23PM ; [facility] Non-smoker 03/09/2017 Last Documented On 7 4:23PM ; [facility] Not using alcohol 03/09/2017 Last Documented On 7 4:23PM ; [facility] Not using drugs 03/09/2017 Last Documented On 7 4:23PM ; [facility] Personal history 03/09/2017 Last Documented On 7 4:23PM ; [facility] Sexually active 03/09/2017 Last Documented On 7 4:23PM ; [facility] Single 03/09/2017 Last Documented On 7 4:23PM ; [facility] In monogamous relationship 03/09/2017 Last Documented On 7 4:23PM ; [facility] Procedures and Surgical History Surgical History Last Updated History of surgery 04/06/2017 Last Documented On 7 2:11PM ; [facility] Surgical / procedural history laproscopy 07/27 Dr. Mccrary 03/09/2017 Last Documented On 7 4:23PM ; [facility] Surgical history unchanged 09/11/2014 Last Documented On 5 4:24PM ; [facility] Medical History Includes: Medical History in patient's chart Description Last Updated LMP: 06/17/2018 pt 07/21/2018 Last Documented On 9 10:20AM ; [facility] Not using contraception Pt p regnant; Pt states she has endometriosis and doesn't know what would be best condoms 100% at present 07/21/2018 Last Documented On 9 10:20AM ; [facility] NO PRIMARY CARE PROVIDER Dr She Logan 07/21/2018 Last Documented On 9 10:20AM ; [facility] section 03/22/2018 Last Documented On 8 5:08PM ; [facility] Para 1 03/22/2018 Last Documented On 8 5:08PM ; [facility] Sexually active last coitus 2 weeks ago 03/22/2018 Last Documented On 8 5:08PM ; [facility] is bottle-feeding 11/28/2017 Last Documented On 8 11:12AM ; [facility] Infant is not breast-feeding 11/28/2017 Last Documented On 8 11:12AM ; [facility] Baby thriving C/S 10/11/17 AMH 39- 7 tomi Cheung 7# 11oz 11/28/2017 Last Documented On 8 11:12AM ; [facility] Last pap smear date 07/07/17 cultures, n ot pap 11/28/2017 Last Documented On 8 11:12AM ; [facility] History of depression 04/06/2017 Last Documented On 7 2:11PM ; [facility] History of hematologic disorder 04/06/20 17 Last Documented On 7 2:11PM ; [facility] 1 03/09/2017 Last Documented On 7 4:23PM ; [facility] A colonoscopy was performed 2016 017 Last Documented On 7 4:23PM ; [facility] History of vaginitis 02/17/2016 Last Documented On 6 1:37PM ; [facility] Subdermal implant 10/14/2014 Last Documented On 5 4:06PM ; [facility] No recent change in medical history 10/2014 Last Documented On 5 4:24PM ; [facility] ORAL SURGERY 201207/16/2014 Last Documented On 5 3:00PM ; [facility] History of anxiety disorder NOS 07/16/19 15 Last Documented On 5 3:00PM ; [facility] Family History Includes: Family History in patient's chart Description Last Updated Maternal history of hypertension MOM, HEATHER D 09/04/2015 Last Documented On 6 1:31PM ; [facility] Paternal grandmother's history of diabet es mellitus PGM 09/04/2015 Last Documented On 6 1:31PM ; [facility] Family history of diabetes mellitus 12/2014 Last Documented On 5 4:06PM ; [facility] Family history unchanged 10/14/2014 Last Documented On 5 4:06PM ; [facility] Review of Systems Review of Systems not supported for this document type No Review of Systems Recorded Mental Status Description Depression Functional Status No Functional Status Recorded Physical Exam Physical Exam not supported for this document type No Physical Exam Recorded Allergies Includes: Active, inactive, and resolved Allergies No Known Allergies Insurance Includes: Active Insurance Policies Plan Name Member ID Group # Subscriber Relationship Effect jacky Dates 1 - [facility] [id number] MIGUEL ARECHIGA Child Clinical Notes Includes: Signed Clinical Notes starting from 07/30/2022 No Clinical Notes Recorded
--- OUTSIDE RECORDS SUMMARY | 2025-06-26 02:25 | XMS_ITS | Clinical Summary ---
Author Organization 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
--- OUTSIDE RECORDS SUMMARY | 2025-06-26 02:25 | XMS_ITS | Clinical Summary ---
Author Organization [facility] Address [address] [place] [address] Phone Care Team Providers Care Medical Insurance Claims Specialist Name Role Phone YVONNE ZHANG, PHI Omalley Unavailable [phone] Reason for Visit and Chief Complaint 3 MONTH CHECK Plan of Treatment No Plan of Treatment [...] 07/21/2018 10:30AM By PHI RUSSELL MD ; [facility] Sertraline HCl 50MG Oral Tablet 02/27/2018 Provider: PHI RUSSELL MD Diagnosis: One tablet daily Last Documented On 02/27/2018 5:48PM By PHI RUSSELL MD ; [facility] Medications Administered Includes: Administered Medications from this [...] Subscriber Relationship Effect jacky Dates 1 - [facility] [id number] MIGUEL ARECHIGA Child Clinical Notes Includes: Clinical Notes from this encounter No Clinical Notes Recorded
--- NOTE | 2025-06-26 11:01 | PM.IMHP2 ---
H&P: HPI History of Present Illness Date/Time: 06/26/25 11:01 Chief Complaint: Intrauterine at term prior Narrative: 24-year-old who presents for repeat at 39 weeks. Review of Systems Cardiovascular: Cardiovascular: Denies chest pain, Denies leg edema, Denies palpitations, Denies dyspnea and Denies dyspnea on exertion Respiratory: Respiratory: Denies cough, Denies dyspnea and Denies dyspnea on exertion Gastrointestinal: Gastrointestinal: Denies abdominal pain, Denies constipation, Denies diarrhea, Denies nausea and Denies vomiting Genitourinary: Genitourinary: Denies hematuria, Denies urinary frequency, Denies dysuria, Denies pelvic pain, Denies urinary incontinence and Denies vaginal discharge Neurologic: Reports system reviewed and no additional complaints, except as documented Psychiatric: Psychiatric: Reports no additional psychiatric complaints Endocrine: Endocrine: Denies palpitations PMFSH Past Medical History Medical History Threatened miscarriage Pharyngitis Suppression of menstruation Urinary tract infection Endometriosis Anemia GERD (gastroesophageal reflux disease) Anxiety and depression Surgical History Surgical History (Updated 06/26/25 @ 11:02 by Simone Santa MD) Delivery by section (03/29/22) rpt c/s History of laparoscopy 2017 diagnostic--endometriosis and lt ovarian bx History of 03/11/19 10/11/17 Family History Family History Mother Hypertension Father Hypertension Grandparent Diabetes mellitus paternal grandmother Social History Social History Smoking status: Never smoker Second hand tobacco smoke exposure: No Alcohol intake: never Substance use: never Substance use type: does not use Lack of Transportation: No Lack of Food: Never True Current Housing: I Have Housing Concerned About Future Housing: No Difficulty Paying Gas/Electric Bills: No Difficulty Paying for Meds: No Currently Unemployed: No Education: High School Diploma/GED Difficulty w/ Childcare or Family Care: No Living arrangements: other Additional living arrangements comments: single Occupation/Education: occupation 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 Gender identity (if verbalized by the patient): Female Sexual Orientation (if Verbalized by the Patient): Straight or Heterosexual Spiritual care concerns: No Meds Home Medications and Allergies Home Medications ?Medication ?Instructions ?Recorded ?Confirmed ?Type ferrous sulfate 325 mg (65 mg 325 mg PO DAILY 06/03/25 06/19/25 History iron) tablet (Feosol) vit no.95-ferrous 1 tablet PO DAILY 06/03/25 06/19/25 History fumarate 28 mg-folic acid 800 mcg tablet () Allergies Allergy/AdvReac Type Severity Reaction Status Date / Time amoxicillin Allergy Severe Other Verified 06/19/25 13:59 tramadol Allergy Severe THROAT Verified 06/19/25 13:59 SWELLING clavulanic acid (From Allergy Swelling Verified 06/19/25 13:59 Augmentin) Exam Const: General: no acute distress Eyes: EOM: EOMs intact bilaterally Neck: Neck: supple Thyroid: thyroid normal Chest: Breast/axilla inspection: normal inspection of the breasts Breast/axilla palpation: normal palpation of the breasts, normal palpation of the axillae and no axillary lymphadenopathy Resp: Effort & Inspection: normal respiratory effort Auscultation: clear to auscultation bilaterally Cardio: Rate: regular rate Rhythm: regular rhythm GI: Inspection: non-distended and other (Gravid) GI Palp: Yes Soft to palpation, No Tenderness to palpation present (GI) and No Guarding due to palpation present (GI) Auscultation: normal bowel sounds : Speculum Exam - Vagina: No vaginal bleeding OB/external & speculum: external exam normal; No vaginal bleeding Skin: General skin exam: normal color and no rashes or lesions noted Neuro: Cognition (Neuro): normal cognition Speech: normal speech Extrem: General: normal to inspection Psych: Mental Status: mental status grossly normal Affect: normal affect Assessment and Plan Assessment and plan (1) 39 weeks gestation of : Code(s): Z3A.39 - 39 weeks gestation of Status: Acute (2) Previous delivery affecting : Code(s): O34.219 - Maternal care for unspecified type scar from previous delivery Status: Acute
--- NOTE | 2025-06-26 11:33 | WPDANESEPPF ---
Anes - Initial Pre Proc Eval Procedure: Operation Date: 06/26/25 13:00 Proposed Procedures p Repeat Section - Simone Santa MD Date/Time: 06/26/25 11:33 Surgeon: Esequiel Evans MD Pre Op Diagnosis: C Section Patient Data Age: 24 Gender: F Height: 1.63 m Weight: 77 kg Allergies Allergy/AdvReac Type Severity Reaction Status Date / Time tramadol Allergy Severe THROAT Verified 06/19/25 13:59 SWELLING amoxicillin Allergy Unknown Other Verified 06/26/25 11:14 clavulanic acid (From Allergy Unknown Other Verified 06/26/25 11:14 Augmentin) Home Medications ?Medication ?Instructions ?Recorded ?Confirmed ?Type ferrous sulfate 325 mg (65 mg 325 mg PO DAILY 06/03/25 06/19/25 History iron) tablet (Feosol) vit no.95-ferrous 1 tablet PO DAILY 06/03/25 06/19/25 History fumarate 28 mg-folic acid 800 mcg tablet () Patient hx anesthesia problems: none Family hx anesthesia problems: none Results Review: All pre-operative results and documents have been reviewed as part of the pre-operative evaluation. [facility] Past Medical History Medical History Threatened miscarriage Pharyngitis Suppression of menstruation Urinary tract infection Endometriosis Anemia GERD (gastroesophageal reflux disease) Anxiety and depression Surgical History Surgical History (Updated 06/26/25 @ 11:02 by Simone Santa MD) Delivery by section (03/29/22) rpt c/s History of laparoscopy 2017 diagnostic--endometriosis and lt ovarian bx History of 03/11/19 10/11/17 Family History Family History Mother Hypertension Father Hypertension Grandparent Diabetes mellitus paternal grandmother Social History Social History Smoking status: Never smoker Second hand tobacco smoke exposure: No Alcohol intake: never Substance use: never Substance use type: does not use Lack of Transportation: No Lack of Food: Never True Current Housing: I Have Housing Concerned About Future Housing: No Difficulty Paying Gas/Electric Bills: No Difficulty Paying for Meds: No Currently Unemployed: No Education: High School Diploma/GED Difficulty w/ Childcare or Family Care: No Living arrangements: other Additional living arrangements comments: single Occupation/Education: occupation 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 Gender identity (if verbalized by the patient): Female Sexual Orientation (if Verbalized by the Patient): Straight or Heterosexual Spiritual care concerns: No Anes - Eval Final PreProcedure Day of Procedure 06/26/25 11:33 Patient weight: overweight Heart: regular rate and rhythm Lungs: clear to auscultation and normal air movement Airway: Mallampati scale class II Neurological: alert and oriented Last oral intake: >/= 8 hours ASA classification: II Emergent: no Anesthetic plan: proceed Anesthesia type and monitoring: regional spinal and standard monitoring Results Review: All pre-operative results and documents have been reviewed as part of the pre-operative evaluation. Informed Consent: The patient's anesthetic plan and its attendant risks and benefits were discussed with the patient/family/POA. Questions were solicited and answers provided to the satisfaction of the patient/family/POA.
[2025-06-26] MEDS: ACETAMINOPHEN 500 MG TABLET 1000 MG PO ×3 (11:43→23:58)
[2025-06-26] MEDS: LACTATED RINGERS 1,000 ML 125 ML IV CONT (11:45)
[2025-06-26] MEDS: ONDANSETRON INJ 4 MG/2 ML VIAL IV PUSH (11:58)
[2025-06-26] MEDS: ceFAZolin 2 GM in SODIUM CHLORIDE 0.9% IV 50 ML 100 ML IVPB (11:58)
[2025-06-26] MEDS: FAMOTIDINE 20 MG/2 ML VIAL IV PUSH (11:59)
--- NOTE | 2025-06-26 12:03 | LDADM ---
This patient, Shona Fierro, was admitted to Labor/Delivery/Recovery 120 on 06/26/25 at 10:51. Plans for section, pain management and were discussed with patient. Patient/family oriented to hospital policies and general routines including ID bracelet, bed and alarms, visiting hours, pain management, procedures, bathroom and other care routines, personal items, smoking policy, room service/diet and guest tray routines, security routines, and visiting hours. Patient/Family are encouraged to report perceived risks to care and to ask questions if they do not understand what they are told or what they should do. See OBIX for further documentation.
--- NOTE | 2025-06-26 12:53 | WPDHPUPDATE1 ---
History and Physical Update Update Date/Time: 06/26/25 12:53 History and Physical has been reviewed, including an updated exam of the patient. There are NO changes in the patient's condition. Risks, benefits, and alternatives have been discussed and questions answered. Patient agrees to proceed with procedure.
--- NOTE | 2025-06-26 14:01 | P.PCNOB_ITS ---
OB - Delivery Note Procedure Delivery date: 06/26/25 Pre-op diagnosis: Previous Delivery Post-op Diagnosis: Same Induction method: None Delivery monitor: External FHT Prior to decision for section, ACOG/SMFM labor guidelines were considered and discussed with the patient and staff. Decision made to proceed with the section.: Yes Procedure Performed: Repeat Secondary branch: low cervical, transverse Surgeon: Simone Santa MD Anesthesia type: Spinal Description of Procedure/Findings: The patient was taken to the operating room. A combined spinal epidural anesthesic was administered and found to be adequate at a t-10 level. The patient was placed in a supine position with a slight left lateral tilt. A dozier catheter was placed with return of clear urine. A Bovie grounding pad was placed. Surgical prep was performed and surgical drapes were placed. A surgical time out was performed. A Pfannenstiel skin incision was then made with the scalpel and carried through to the underlying layer of fascia. The fascia was then incised in the midline and the incision was extended laterally with the Messina scissors. The superior aspect of the fascia was then grasped with the Flaquita clamps, elevated, and the und erlying rectus muscles dissected off bluntly and sharply. Attention was then turned to the inferior aspect of this incision which, in a similar fashion, was grasped, tented up with the Flaquita clamps, and the rectus muscles dissected off both bluntly and sharply. The rectus muscles were then in the midline. The peritoneum was identified and entered bluntly. The peritoneal incision was then extended superiorly and inferiorly with good visualization of the bladder. The vesico-uterine serosa was identified and dissected to create a bladder flap. A ring retractor was placed for better visualization. The uterus was inspected for rotation. A low-transverse uterine incision was made sharply with the scalpel and entry was made into the uterine cavity. An amniotomy was made and copious amounts of clear fluid were noted on return. The uterine incision was extended laterally bluntly. The bladder blade was removed and the fetus was delivered atraumatically. The nose and mouth were suctioned with a bulb syringe. The umbilical cord was clamped twice and cut. The infant was handed off to the waiting staff. At the time of the delivery, the had good color, tone and grimace. The inf ant cried with minimal stimulation. A second segment of umbilical cord was clamped and cut for cord blood gasses. Cord blood was collected for determination of the blood type and for direct [place]. The placenta was delivered spontaneously without difficulty. The placenta appeared grossly normal and complete. The uterus was exteriorized and cleared of all clots and debris. The uterine incision was repaired using 0-monocryl suture in a running fashion. A second layer of 0 Monocryl suture was used in an imbricating fashion to obtain excellent hemostasis and uterine strength. The uterine closure was inspected for hemostasis. The posterior aspect of the uterus and the broad ligaments were inspected and the posterior cul-de-sac cleared of fluid and blood clots. The uterine closure was again inspected and found to be hemostatic. The uterus was returned to the abdominal cavity. The pericolic gutters were inspected and were cleared of all blood clots and debris. The uterine closure was then re inspected to ensure hemostasis as were all subfascial tissues. The peritoneum was closed using 3-0 vicryl in a running fashion. The fascia was reapproximated with 0-vicryl in a running fashion. The subcutaneous tissue was irrigated and hemostasis achieved with electrocautery. It was reapproximated with 3-0 vicryl in a running fashion. The skin was closed with 4-0 vicryl in a subcuticular fashion. A sterile dressing was applied to the wound. The patient tolerated the procedure well. Sponge, lap and needle counts were correct times three. The patient was taken to recovery in stable condition and without anticipated complications. Estimated Blood Loss: 165 Drains: No Packing: No Pathology: None sent Complications: No immediate complications Condition: Stable Disposition: Floor Baby Date of : 06/26/25 Gestational Age by Date: 39 gender: Male presentation: vertex Placenta delivery description: Manual Removal Cord Vessel Description: 3 Vessels
[2025-06-26] MEDS: OXYTOCIN 30 UNITS/NS 500 ML 30 UNITS/500 ML BAG 125 UNITS IV CONT (15:01)
[2025-06-26] MEDS: SIMETHICONE 80 MG TAB.CHEW PO ×2 (15:17→18:01)
[2025-06-26] MEDS: MORPHINE SULFATE INJ (*CRX) 10 MG/ML AMP 2.5 MG IV PUSH (15:21)
[2025-06-26] MEDS: LIDOCAINE 5% PATCH 1 PATCH TRANSDERM (15:25)
[2025-06-26] MEDS: DOCUSATE SODIUM 100 MG CAPSULE PO (18:01)
[2025-06-26] MEDS: KETOROLAC 15 MG/ML VIAL (*BKC) IV PUSH (18:04)
[2025-06-26] MEDS: diphenhydrAMINE HCl CAP 25 MG CAPSULE PO (19:09)
[2025-06-26] MEDS: DEXTROSE 5%/0.45% SOD CHL 1,000 ML 125 ML IV CONT (19:24)
[2025-06-26] MEDS: IBUPROFEN 600 MG TABLET PO (23:59)
[2025-06-27] MEDS: oxyCODONE HCL (*CRX) 5 MG TAB IR PO ×2 (04:22→10:00)
[2025-06-27 05:16] LABS: Hematocrit 27.1 % (37.0-47.0); Hemoglobin 8.0 g/dL (12.0-15.0); Immature Granulocyte Percent A 0.4 % (0-0.5); Lymphocytes Absolute Auto 1.60 K/mm3 (0.9-3.2); Mean Corpuscular HGB Conc 29.5 g/dl (32-36); Mean Corpuscular Hemoglobin 24.5 pg (26-34); Mean Corpuscular Volume 82.9 fl (80-100); Nucleated Red Blood Cells Absolute Auto 0.000 K/mm3 (0.0-0.012); Nucleated Red Blood Cells Perc 0.0 % (0.0-0.2); Platelet Count Result 183 k/mm3 (150-375); Red Blood Count 3.27 M/mm3 (4.2-5.4); White Blood Count 7.1 K/mm3 (4.5-10.0)
[2025-06-27 05:34] VITALS: BP 105/67; PULSE 95
[2025-06-27] MEDS: IBUPROFEN 600 MG TABLET PO ×4 (05:34→23:00)
[2025-06-27] MEDS: ACETAMINOPHEN 500 MG TABLET 1000 MG PO ×4 (05:34→23:00)
[2025-06-27] MEDS: SIMETHICONE 80 MG TAB.CHEW PO ×3 (05:34→17:00)
[2025-06-27 05:40] LABS: Hypochromasia 1+; Schistocytes None Seen
[2025-06-27 07:50] VITALS: BP 117/78; PULSE 90; RESP 18; TEMP 37.1; O2SAT 98
--- NOTE | 2025-06-27 08:01 | P.PNOB_ITS ---
OB - PN: Subj Subjective Date/time seen: 06/27/25 08:01 Patient comments: no complaints, pain well controlled, tolerating diet and flatus present OB - PN: Obj Data Labs 06/27/25 03:45 Labs: Laboratory Results - last 24 hr 06/27/25 03:45 WBC 7.1 RBC 3.27 L Hgb 8.0 L Hct 27.1 L MCV 82.9 MCH 24.5 L MCHC 29.5 L RDW 18.4 H Plt Count 183 MPV 12.1 H Immature Gran % (Auto) 0.4 Neut % (Auto) 65.3 Lymph % (Auto) 22.6 Pleasants % (Auto) 9.2 H Eos % (Auto) 2.1 Baso % (Auto) 0.4 Lymph # (Auto) 1.60 [place] # (Auto) 0.7 H Eos # (Auto) 0.2 Baso # (Auto) 0.0 Abs Immat Gran (auto) 0.03 Absolute Neuts (auto) 4.6 Absolute Nucleated RBC 0.000 Band Neutrophils % Not Reportable Nucleated RBC % 0.0 Platelet Estimate Adequate Hypochromasia 1+ Schistocytes None seen OB - PN A/P Plan day: 1 Plan: routine care Comments: patient doing well H/H 03/06, asymptomatic, will continue iron supplementation afebrile, VSS incision C/D/I dozier removed, voiding spontaneously patient desires circumcision, risks, benefits, alternatives discussed continue routine post op care Time Spent With Patient Time: Total time spent is greater than 50% in coordination of care (as documented) at patient's floor/unit and/or counseling patient: Time with patient: less than 15 minutes Review of Systems 2 Constitutional: Constitutional: Reports no additional constitutional complaints Cardiovascular: Cardiovascular: Reports no additional cardiovascular complaints Respiratory: Respiratory: Reports no additional respiratory complaints Gastrointestinal: Gastrointestinal: Reports no additional gastrointestinal complaints Genitourinary: Genitourinary: Reports no additional female genitourinary complaints Exam 2 Const: General: comfortable and no acute distress Resp: Effort & Inspection: normal respiratory effort Auscultation: clear to auscultation bilaterally Cardio: Rate: regular rate GI: GI Palp: Yes Soft to palpation, Yes Tenderness to palpation present (GI) (around incision ) and No Guarding due to palpation present (GI) A uscultation: normal bowel sounds Other: incision C/D/I, covered with Dermabond Psych: Appearance: grossly normal Mental Status: mental status grossly normal Affect: normal affect
[2025-06-27] MEDS: FERROUS SULFATE 325 MG TABLET BY MOUTH (09:05)
[2025-06-27] MEDS: MULTIVIT/MIN/PREN/FOL AC/IRON TABLET 1 TAB PO (09:05)
[2025-06-27] MEDS: DOCUSATE SODIUM 100 MG CAPSULE PO ×2 (09:05→18:05)
--- NOTE | 2025-06-27 10:22 | PC.NURSE ---
Mother verbalizes she is able to independently latch with appropriate positioning and alignment. She denies any nipple discomfort and is responsively . Infant is currently meeting outcomes for weight, output, jaundice, blood sugar and feeding frequencies of 8-12 times in 24 hours. Mother declines any additional assistance or education at this time. Mother is encouraged to call for assistance if her infant doesn?t latch, pain with latching, questions or concerns. Mother voiced understanding of information shared along with the mom/baby guide for an additional resource. Reported to the Primary RN.
--- NOTE | 2025-06-27 10:30 | PC.NURSE ---
Spoke with Anesthesia about patient complaint of persistent headache. Patient reports that she has a history of spinal headaches post delivery of her other pregnancies. Anesthesia to come to unit to assess patient.
--- NOTE | 2025-06-27 11:00 | WPDANLDPN2 ---
Anes-Prog Note L&D Date/Time: 06/27/25 11:00 Comfortable throughout: section Neuraxial method: spinal Epidural/Spinal procedure site: clean & non-tender Neuro status: Neuro function grossly intact. Cardiovascular status: normal Respiratory status: normal Airway patency: baseline Mental status: baseline Post-Op hydration status: normal Vital Signs: Last Vital Signs Temp 37.1 C 06/27/25 07:50 Pulse 90 06/27/25 07:50 Resp 18 06/27/25 07:50 BP 117/78 06/27/25 07:50 Pulse Ox 98 06/27/25 07:50 O2 Del Method Room Air 06/26/25 23:24 Pain score (VAS): 0 I/O: Intake & Output 06/26/25 06/27/25 06/27/25 23:59 07:59 15:59 Intake Total 481.3 Output Total 2375 350 Balance -1893.7 -350 Post-procedural complaints: other (reports headache, but does not sound like PDPH. Regardless, caffeine and at minimum a gallon of water a day encouraged) Patient feedback: Patient satisfied with anesthetic care.
--- NOTE | 2025-06-27 11:01 | WPDANLDNPN2 ---
Anes-Prog Note L&D-Neuraxial Date/Time: 06/27/25 11:01 Neuraxial medications: intrathecal PF morphine Opiod-related complaints: none Patient feedback: Patient satisfied with post-operative pain management.
[2025-06-27 12:15] VITALS: BP 112/67; PULSE 87; RESP 18; TEMP 36.9; O2SAT 98
--- NOTE | 2025-06-27 13:35 | PCCCNOTE ---
Care Coordination. Pt. referred to for community resources. Met with pt. Pt. plans to return home. She reports her mother is very supportive and her grandmother is coming to stay for 1-2 months to help. Pt. reports she is very fortunate to have great support. She reports getting child support and is signed up for any government resource she's eligible for. Pt. plans to return to work after maternity leave. Pt. did not want any community resource information, but did take basket of baby care items. She reports having all necessary baby care items that her grandmother bought for her.
--- NOTE | 2025-06-27 16:52 | PC.NURSE ---
Called anesthesia, patient continues to complain of a headache, rating the pain an 8, that is exacerbated by sitting up and pain is not reduced by the use of tylenol or ibuprofen. Per Dr Rowland, Lissa MCCALL will come to see the patient. 1744 Lissa MCCALL on unit, spoke with the patient and will proceed with a blood patch to help with patient headache. Patient signed consent, was informed of the risks and benefits of the procedure, and procedure was started at 1753 and completed at 1808. Patient tolerated procedure well and patient reports relief of headache.
[2025-06-27 18:30] VITALS: BP 123/79; PULSE 88; RESP 15; TEMP 37.1; O2SAT 98
[2025-06-27] MEDS: oxyCODONE HCL (*CRX) 5 MG TAB IR 10 MG PO (20:26)
[2025-06-28] MEDS: ACETAMINOPHEN 500 MG TABLET 1000 MG PO ×2 (05:30→11:31)
[2025-06-28] MEDS: IBUPROFEN 600 MG TABLET PO ×2 (05:30→11:31)
[2025-06-28 07:37] VITALS: BP 112/68; PULSE 85; RESP 12; TEMP 36.8; O2SAT 98
--- NOTE | 2025-06-28 08:07 | P.DS_ITS ---
DS: Admitting Diagnosis Discharge Date 06/28/2025 Admitting Diagnosis intrauterine at term History of Caesarean section DS: Discharge Diagnosis Discharge Diagnosis (1) delivery delivered: Code(s): O82 - Encounter for delivery without indication Status: Acute OB - DS: Summary OB Procedures : None OB Procedures Intrapartum: ( repeat) low cervical, transverse OB Procedures: : None Peripartum Data Delivery Method: Section Procedures: Procedures Operation Date: 06/26/25 13:00 Actual Procedure Side Surgeon p Repeat Section Not Applicable Simone Santa MD complications: none Status at Discharge Functional status at discharge: independent ambulation Overall status at discharge: patient is progressing back to baseline Time Spent with Patient Time attestation: Total time spent providing and/or coordinating discharge services: Time spent: Less than 30 minutes Exam Const: General: comfortable and no acute distress Resp: Effort & Inspection: normal respiratory effort Auscultation: clear to auscultation bilaterally Cardio: Rate: regular rate GI: Inspection: non-distended GI Palp: Yes Soft to palpation, No Firmness to palpation present (GI), Yes Tenderness to palpation present (GI) (mild tenderness over incision ) and No Guarding due to palpation present (GI) Aus cultation: normal bowel sounds Psych: Appearance: grossly normal Mental Status: mental status grossly normal Discharge Plan Discharge Discharging Clinician: Simone Santa Patient Disposition: Home Activity: as tolerated and pelvic rest Diet: regular Patient Instructions: Antibiotic Form, (DC) Patient Language: Syriac Stand Alone Forms: General Discharge Information Follow-up/Referrals: Simone Santa MD [Physician, DIRECT OF REAL ESTATE] Discharge Medications: New oxycodone-acetaminophen 5-325 mg tablet 1 tablet PO Q6H PRN (Reason: pain) Qty: 28 0RF ibuprofen 600 mg tablet 600 mg PO Q6H PRN (Reason: pain) Qty: 30 0RF Continued PNV no.95-ferrous fumarate-FA [] 28 mg iron- 800 mcg tablet 1 tablet PO DAILY ferrous sulfate [Feosol] 325 mg (65 mg iron) tablet 325 mg PO DAILY Patient Comments: .. Date of admission: 06/26/25 10:51 Primary Care Provider: UNKNOWN,DOCTOR Admitting Provider: Esequiel Evans Attending physician on admission: Esequiel Evans Condition: Stable
[2025-06-28] MEDS: FERROUS SULFATE 325 MG TABLET BY MOUTH (08:52)
[2025-06-28] MEDS: MULTIVIT/MIN/PREN/FOL AC/IRON TABLET 1 TAB PO (08:53)
[2025-06-28] MEDS: DOCUSATE SODIUM 100 MG CAPSULE PO (08:53)
[2025-06-28] MEDS: SIMETHICONE 80 MG TAB.CHEW PO (08:53)
[2025-06-28] MEDS: oxyCODONE HCL (*CRX) 5 MG TAB IR PO (08:56)
[2025-06-28] MEDS: TETANUS,DIPHTHERIA,AC PERTUSSIS ADULT (0.5 ML) BOOSTRIX IM (08:57)
[2025-06-28] MEDS: INFLUENZA VACCINE 45 MCG/0.5 ML SYRINGE IM (09:04)
--- NOTE | 2025-06-28 11:02 | PC.NURSE ---
Consulted with mother concerning needs and she shared her ability to independently latch infant optimally with minimal nipple soreness. Mother is feeding appropriately for growth of infant and understands stimulating infant to eat if needed. Infant has had appropriate feedings in the last 24 hours meets the outcomes for weight, output, blood sugar and jaundice at this time. Reinforced understanding of milk production, transition of milk, signs of adequate intake, transition of stool, prevention/relief of engorgement, plugged ducts, mastitis, responsive watching for feeding cues, the different methods of stimulating to breastfeed 1-3 hours after the start of the last feeding, community resources, and when to call a provider using the resource of the feeding sheet along with the mom and baby guide. Mother voiced understanding of the information shared, is confident to continue effectively her at home, when to call for assistance, denies any additional assistance or education at this time. [facility] referral completed, will fax to [facility]. Reported to the Primary RN.
--- NOTE | 2025-06-28 17:57 | WPDANESEBPP ---
Anes - Epidural Blood Patch PN Date/Time: 06/28/25 17:57 Consent: I have discussed with the patient/family/POA, the rationale of a lumbar epidural autologous blood patch for the treatment of post-dural puncture headache (spinal headache), including associated potential risks, benefits, complications and side effects. I have also discussed more conservative treatment options such as intravenous hydration, caffeine and non-prescription analgesics. The patient/family/POA, understand(s) and wish(es) to proceed with epidural autologous blood patch as treatment for the patient's post-dural puncture headache. Time-Out: A pre-procedural Time-Out was completed immediately before starting the procedure and confirmed: Patient Identification, Site, Procedure, Patient Position and the Availability of Requisite Equipment. Clinical Indications: post dural puncture headache Epidural Insertion Note Patient position: sitting Skin prep: chlorhexidine Needle: 18 gauge Tuohy-Schliff Technique: loss of resistance Skin anesthesia: lidocaine 1% Observations: tolerated well Complications: none and other
[2025-06-29 15:47] VITALS: BP 119/76; PULSE 74; RESP 16; TEMP 36.6; O2SAT 100
== END 2025-06-28 15:34 | disposition home or self-care (01) | DRG 788 ==
LOC: ANHOB2 20:05 → ANHLDR 07-01 09:59 → ANHOB2 07-01 09:59
PROVIDERS: Admitting Provider Obstetrics & Gynecology; Visit Provider Student in an Organized Health Care Education/Training Program
PROC: 10D00Z1 Extraction of Products of Conception, Low, Open Approach (ICD-10-PCS; CPT 59514; principal; 2025-06-26 13:00)
DX: O34.211 Maternal care for low transverse scar from previous cesarean delivery (principal); Z3A.39 39 weeks gestation of pregnancy; Z37.0 Single live birth; Z23 Encounter for immunization
CPT/HCPCS: 36415; 85025; 90471; 90656; 90715; J0690; A9270; G0008; J1885; J2270; J2274; J2405; J2590; J7120

== ENCOUNTER 2025-07-06 17:52 | Emergency (ER) | payer OTHER, MEDICAID, SELFPAY ==
--- OUTSIDE RECORDS SUMMARY | 2025-07-06 17:57 | XMS_ITS ---
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
--- OUTSIDE RECORDS SUMMARY | 2025-07-06 17:57 | XMS_ITS ---
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 History of Depression 04/06/2017 Unknown PHI RUSSELL MD Resolved Last Documented On 04/12/2018 11:50AM ; [facility] Note: was Closed. History of Hematologic Disorders 04/06/2017 Unknown PHI RUSSELL MD Resolved Last Documented On 04/12/2018 11:50AM ; [facility] Note: was Closed. Plan of Treatment Findings Encounter Date Ordered follow-up visit PROBLEM VISIT with GAYATHRI OCAMPO RN [facility] 03/22/2018 Last Documented On 8 5:08PM ; [facility] Ordered return to the clinic if condition worsens or new symptoms arise PROBLEM VISIT with GAYATHRI OCAMPO RN [facility] 03/22/2018 Last Documented On 8 5:08PM ; [facility] Follow-up for re-examination for 3 months with a BP check and on OCP's POST VISIT with PHI RUSSELL MD 11/28/2017 Last Documented On 8 11:12AM ; [facility] Ordered patient to call if p roblem develops POST VISIT with PHI RUSSELL MD 11/28/2017 Last Documented On 8 11:12AM ; [facility] She will keep a menstrual diary POST VISI T with PHI RUSSELL MD 11/28/2017 Last Documented On 8 11:12AM ; [facility] Ordered Clinical summary pro vided to patient MISSED MENSES with GAYATHRI OCAMPO RN [facility] 03/09/2017 Last Documented On 7 4:23PM ; [facility] Ordered Clinical summary pro vided to patient PROCEDURE OFFICE with GAYATHRI OCAMPO RN [facility] 03/16/2016 Last Documented On 6 9:06AM ; [facility] Ordered Clinical summary pro vided to patient PROBLEM VISIT with GAYATHRI OCAMPO RN [facility] 02/17/2016 Last Documented On 6 1:37PM ; [facility] Ordered Clinical summary pro 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 to patient 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 RN [facility] 09/04/2015 Last Documented On 6 1:31PM ; [facility] Ordered Clinical summary pro vided to patient 1 MONTH CHECK with GAYATHRI OCAMPO RN [facility] 10/14/2014 Last Documented On 5 4:06PM ; [facility] Ordered Clinical summary pro vided to patient 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 RN [facility] 07/16/2014 Last Documented On 5 3:00PM ; [facility] Instructions to patient Instructions for patient : B reast Self Exam discussed and technique reviewed Last Documented On 7 2:07PM ; [facility] Use a condom during sexual i ntercourse Last Documented On 7 2:07PM ; [facility] Instructed to call if excess jacky bleeding or abdominal/pelvic pain Last Documented On 7 2:07PM ; [facility] Recommend diet and exercise at least 30 min three times per week Last Documented On 7 2:07PM ; [facility] Return to the clinic if cond ition worsens or new symptoms arise Last Documented On 6 2:07PM ; [facility] ER/ Pain Precautions Last Documented On 6 2:07PM ; [facility] Instructions for patient : K eep the area around the vulva dry. Allow the area to have exposure to air. Avoid irritants such as fabric softeners and perfumed soaps.~ Last Documented On 6 1:30PM ; [facility] Instructions for patient : B reast Self Exam discussed and technique reviewed Last Documented On 6 1:00PM ; [facility] Use a condom during sexual i ntercourse Last Documented On 6 1:00PM ; [facility] Instructed to call if excess jacky bleeding or abdominal/pelvic pain Last Documented On 6 1:00PM ; [facility] Recommend diet and exercise at least 30 min three times per week Last Documented On 6 1:00PM ; [facility] Instructions for patient : B reast Self Exam discussed and technique reviewed Last Documented On 5 1:52PM ; [facility] Use a condom during sexual i ntercourse Last Documented On 5 1:52PM ; [facility] Instructed to call if excess jacky bleeding or abdominal/pelvic pain Last Documented On 5 1:52PM ; [facility] Recommend diet and exercise at least 30 min three times per week Last Documented On 5 1:52PM ; [facility] Education and Decision Aids were provided during visit for: She will keep a menstrual di kahlil Last Documented On 8 11:02AM ; [facility] Patient Education: Daily bill cium and vitamin D Last Documented On 7 2:07PM ; [facility] Patient counseling : Use of oral contraceptives discussed in detail including rare occurrence of heart attack, stroke, and leg clots. Patient understands that smoking increases the risk of serious side effects with any steroid-based contraceptive method Last Documented On 7 9:07AM ; [facility] Patient education :vaginal h ygiene, PID precaution review, condoms 100% if sexually active Last Documented On 6 1:31PM ; [facility] Candidiasis Vulvovaginitis I nformation Sheet Given Last Documented On 6 1:30PM ; [facility] Patient education RE: warnin g signals associated with hormonal contraceptive use including abdominal, chest, or leg pain, headaches or visual disturbances Last Documented On 6 1:00PM ; [facility] Patient Education: Daily bill cium and vitamin D Last Documented On 6 1:00PM ; [facility] Discussed smoking and drug u se Last Documented On 5 1:52PM ; [facility] Patient education RE: nima reese signals associated with hormonal contraceptive use including abdominal, chest, or leg pain, headaches or visual disturbances Last Documented On 5 1:52PM ; [facility] Inquiry and counseling about contraceptive practices Last Documented On 5 2:59PM ; [facility] Patient Education: Daily bill cium and vitamin D Last Documented On 5 1:52PM ; [facility] Assessments Includes: Assessments for all patient encounters Findings Encounter Date Depression 4 MONTH CHECK UP with PHI GARCIA MD 07/21/2018 Last Documented On 9 10:20AM ; [facility] Endometriosis of the pelvic peritoneum P ROBLEM VISIT with GAYATHRI OCAMPO RN [facility] 03/22/2018 Last Documented On 8 5:08PM ; [facility] Major depression, recurrent PROBLEM VISIT with Shahram OCAMPO RN [facility] 03/22/2018 Last Documented On 8 5:08PM ; [facility] Contraceptive management POST VISIT with PHI RUSSELL MD 11/28/2017 Last Documented On 8 11:12AM ; [facility] Routine history a nd physical POST VISIT with PHI RUSSELL MD 11/28/2017 Last Documented On 8 11:12AM ; [facility] Routine history and physical POST OP VISIT with GAYATHRI OCAMPO RN [facility] 10/26/2017 Last Documented On 8 11:58AM ; [facility] Mccrary MISSED MENSES with GAYATHRI OCAMPO RN [facility] 03/09/2017 Last Documented On 7 4:23PM ; [facility] NORMAL FEMALE EXAM MISSED MENSES with GAYATHRI PEREZ RN [facility] 03/09/2017 Last Documented On 7 4:23PM ; [facility] with threatened MISSE D MENSES with GAYATHRI OCAMPO RN [facility] 03/09/2017 Last Documented On 7 4:23PM ; [facility] Visit for: exam wi th positive result MISSED MENSES with GAYATHRI SERVIN 03/09/2017 Last Documented On 7 4:23PM ; [facility] Contraceptive management POST OP VISIT with DAVID MCCRARY MD 08/10/2016 Last Documented On 7 9:08AM ; [facility] Endometriosis POST OP VISIT with DAVID MCCRARY MD 08/10/2016 Last Documented On 7 9:08AM ; [facility] POST OP VISIT POST OP VISIT with DAVID MCCRARY MD 08/10/2016 Last Documented On 7 9:08AM ; [facility] Contraceptive management CONSULTATION with DVAID MCCRARY MD 07/06/2016 Last Documented On 6 4:42PM ; [facility] Dyspareunia CONSULTATION with DAVID MCCRARY MD 07/06/2016 Last Documented On 6 4:42PM ; [facility] Female pelvic pain CONSULTATION with DAVID ESPINAL MD 07/06/2016 Last Documented On 6 4:42PM ; [facility] Cyst on the left ovary vs. d ominant follicle PELVIC W/TVT with GAYATHRI OCAMPO RN [facility] 04/12/2016 Last Documented On 6 4:27PM ; [facility] Encounter for implantable gustafson bdermal contraceptive PROCEDURE OFFICE with GAYATHRI OCAMPO RN [facility] 03/16/2016 Last Documented On 6 9:06AM ; [facility] Dyspareunia PROBLEM VISIT with GAYATHRI SERVIN 02/17/2016 Last Documented On 6 1:37PM ; [facility] Encounter for implantable gustafson bdermal contraceptive PROBLEM VISIT with GAYATHRI SERVIN 02/17/2016 Last Documented On 6 1:37PM ; [facility] Ovarian cyst simple cyst vs. 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 with GAYATHRI Pierce [facility] 09/04/2015 Last Documented On 6 1:31PM ; [facility] Encounter for implantable gustafson bdermal contraceptive 1 MONTH CHECK with GAYATHRI OCAMPO RN [facility] 10/14/2014 Last Documented On 5 4:06PM ; [facility] Contraceptive surveillance PROCEDURE OFFICE with GAYATHRI OCAMPO RN [facility] 09/11/2014 Last Documented On 5 4:24PM ; [facility] Contraceptive management 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 RN [facility] 07/16/2014 Last Documented On 5 3:00PM ; [facility] Dysmenorrhea 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 RN [facility] 07/16/2014 Last Documented On 5 3:00PM ; [facility] Routine gynecological exam 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 ASAD OCAMPO RN [facility] 07/16/2014 Last Documented On 5 3:00PM ; [facility] SCREENING FOR STD 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 GAYATHRI Trevino RN [facility] 07/16/2014 Last Documented On 5 3:00PM ; [facility] Instructions Includes: Instructions for all patient encounters Instructions to patient Instructions for patient : B reast Self Exam discussed and technique reviewed Last Documented On 7 2:07PM ; [facility] Use a condom during sexual i ntercourse Last Documented On 7 2:07PM ; [facility] Instructed to call if excess jacky bleeding or abdominal/pelvic pain Last Documented On 7 2:07PM ; [facility] Recommend diet and exercise at least 30 min three times per week Last Documented On 7 2:07PM ; [facility] Return to the clinic if cond ition worsens or new symptoms arise Last Documented On 6 2:07PM ; [facility] ER/ Pain Precautions Last Documented On 6 2:07PM ; [facility] Instructions for patient : K eep the area around the vulva dry. Allow the area to have exposure to air. Avoid irritants such as fabric softeners and perfumed soaps.~ Last Documented On 6 1:30PM ; [facility] Instructions for patient : B reast Self Exam discussed and technique reviewed Last Documented On 6 1:00PM ; [facility] Use a condom during sexual i ntercourse Last Documented On 6 1:00PM ; [facility] Instructed to call if excess jacky bleeding or abdominal/pelvic pain Last Documented On 6 1:00PM ; [facility] Recommend diet and exercise at least 30 min three times per week Last Documented On 6 1:00PM ; [facility] Instructions for patient : B reast Self Exam discussed and technique reviewed Last Documented On 5 1:52PM ; [facility] Use a condom during sexual i ntercourse Last Documented On 5 1:52PM ; [facility] Instructed to call if excess jacky bleeding or abdominal/pelvic pain Last Documented On 5 1:52PM ; [facility] Recommend diet and exercise at least 30 min three times per week Last Documented On 5 1:52PM ; [facility] Education and Decision Aids were provided during visit for: She will keep a menstrual di kahlil Last Documented On 8 11:02AM ; [facility] Patient Education: Daily bill cium and vitamin D Last Documented On 7 2:07PM ; [facility] Patient counseling : Use of oral contraceptives discussed in detail including rare occurrence of heart attack, stroke, and leg clots. Patient understands that smoking increases the risk of serious side effects with any steroid-based contraceptive method Last Documented On 7 9:07AM ; [facility] Patient education :vaginal h ygiene, PID precaution review, condoms 100% if sexually active Last Documented On 6 1:31PM ; [facility] Candidiasis Vulvovaginitis I nformation Sheet Given Last Documented On 6 1:30PM ; [facility] Patient education RE: nima reese signals associated with hormonal contraceptive use including abdominal, chest, or leg pain, headaches or visual disturbances Last Documented On 6 1:00PM ; [facility] Patient Education: Daily bill cium and vitamin D Last Documented On 6 1:00PM ; [facility] Discussed smoking and drug u se Last Documented On 5 1:52PM ; [facility] Patient education RE: saritan g signals associated with hormonal contraceptive use including abdominal, chest, or leg pain, headaches or visual disturbances Last Documented On 5 1:52PM ; [facility] Inquiry and counseling about contraceptive practices Last Documented On 5 2:59PM ; [facility] Patient Education: Daily bill cium and vitamin D Last Documented On 5 1:52PM ; [facility] Medical Equipment - Implanted Devices Includes: Current and historical Devices No Medical Equipment Recorded Medications Includes: Current and historical Medications Current Medications (continue as prescribed) Sertraline HCl 50MG Oral Tablet 07/21/2018 Provider: PHI RUSSELL MD Diagnosis: Major depressive disorder, recurrent, unspecified One tablet daily Last Documented On 07/21/2018 10:30AM By PHI RUSSELL MD ; [facility] Sertraline HCl 50MG Oral Tablet 02/27/2018 Provider: PHI RUSSELL MD Diagnosis: One tablet daily Last Documented On 02/27/2018 5:48PM By PHI RUSSELL MD ; [facility] Past Medications on file Sertraline HCl 50MG Oral Tablet 07/14/2018 - 07/21/2018 Provider: PHI RUSSELL MD Diagnosis: Major depressive disorder, recurrent, unspecified One tablet daily Last Documented On 07/21/2018 10:18AM By PHI RUSSELL MD ; [facility] Sertraline HCl 50MG Oral Tablet 03/22/2018 - 07/14/2018 Provider: GAYATHRI OCAMPO RN [facility] Diagnosis: Major depressive disorder, recurrent, unspecified One tablet daily Last Documented On 07/14/2018 11:47AM By PHI RUSSELL MD ; [facility] Naproxen 500MG Oral Tablet 03/22/2018 - 05/31/2018 Provider: GAYATHRI SERVIN BC Diagnosis: Endometriosis, unspecified One tablet twice a day USE A S DIRECTED DON'T EXCEED 2 TABS IN 24 HOURS Last Documented On 8 5:06PM By GAYATHRI MORRISON ; [facility] Sertraline HCl 50MG Oral Tablet 01/26/2018 - 8 Provider: PHI RUSSELL MD Diagnosis: One tablet daily Last Documented On 02/27/2018 5:42PM By PHI RUSSELL MD ; [facility] Lo Loestrin Fe 1 MG-10 MCG /10 MCG Oral Tablet 11/28/2017 - 08/09/2018 Provider: PHI RUSSELL MD Diagnosis: Encounter for in itial prescription of contraceptive pills One tablet daily Last Documented On 9 7:54AM By GAYATHRI MORRISON ; [facility] Sertraline HCl 50MG Oral Tablet 10/04/2017 - 01/26/2018 Provider: PHI RUSSELL MD Diagnosis: Oth mental disor ders complicating , third trimester One tablet daily Last Documented On 01/26/2018 5:57PM By PHI RUSSELL MD ; [facility] Ferrous Gluconate 324 (37.5 Fe)MG Oral Tablet 08/11/2017 - 12/09/2017 Provider: GAYATHRI SERVIN BC Diagnosis: Anemia complicat ing the puerperium One tablet twice a day Last Documented On 8 8:54AM By GAYATHRI MORRISON ; [facility] Nitrofurantoin Monohyd Macro 100MG Oral Capsule 07/07/2017 - 07/14/2017 Provider: GAYATHRI SERVIN BC Diagnosis: Hematuria, unspe cified One tablet twice a day TAKE DIRECTED W/FOOD Last Documented On 7 10:46AM By GAYATHRI MORRISON ; [facility] Sertraline HCl 50MG Oral Tablet 07/07/2017 - 10/04/2017 Provider: GAYATHRI SERVIN BC Diagnosis: Major depressive disorder, recurrent, unspecified One tablet daily Last Documented On 10/04/2017 3:33PM By PHI RUSSELL MD ; [facility] Sertraline HCl 100MG Oral Tablet 07/06/2017 - 07/07/2017 Provider: PHI Verdugo Diagnosis: Oth mental disor ders comp , second trimester One tablet daily Last Documented On 7 10:33AM By GAYATHRI ASENCIO ; [facility] Ferrous Gluconate 324 (37.5 Fe)MG Oral Tablet 05/05/2017 - 08/11/2017 Provider: GAYATHRI MUHAMMAD Diagnosis: Anemia complicat ing the puerperium One tablet daily Last Documented On 8 8:49AM By GAYATHRI ASENCIO ; [facility] Classic 28-0.8MG Oral Tablet 03/09/2017 - Provider: Diagnosis: Last Documented On 7 1:21PM By MELINDA LOVETT ; [facility] Classic 28-0.8MG Oral Tablet 03/09/2017 - 03/04/2018 Provider: GAYATHRI MUHAMMAD Diagnosis: Encounter for test, result positive 1 daily Last Documented On 7 2:22PM By GAYATHRI MORRISON ; [facility] Lo Loestrin Fe 1 MG-10 MCG / 10 MCG Oral Tablet 08/18/2016 - 11/28/2017 Provider: DAVID MCCRARY MD Diagnosis: One tablet daily Last Documented On 11/28/2017 11:10AM By PHI RUSSELL MD ; [facility] Sertraline HCl 50MG Oral Tablet 08/10/2016 - 8 Provider: Diagnosis: Last Documented On 8 10:28AM By MELINDA LOVETT ; [facility] Quasense 0.15-0.03MG Oral Tablet 08/10/2016 - 11/10/19 17 Provider: DAVID MCCRARY MD Diagnosis: One tablet daily Last Documented On 08/10/2016 9:06AM By DAVID MCCRARY MD ; [facility] vicoden 5/500mg Tablet 07/06/2016 - 08/10/2016 Provide r: Diagnosis: Last Documented On 7 8:48AM By BRITNI LOVETT ; [facility] Fluconazole 150 MG Tablet 05/17/2016 - 05/19/2016 Provider: GAYATHRI MUHAMMAD Diagnosis: Candidiasis of v ulva and vagina TAKE 1 TAB DAY 1 and 1 tab day 3 Last Documented On 6 10:07AM By GAYATHRI MORRISON ; [facility] Naproxen 500 MG Tablet 03/16/2016 - 03/21/2016 Provider: GAYATHRI SERVIN BC Diagnosis: Encounter for surveillance of contraceptives, unspecified 1 BID USE DIRECTED W/FOOD DON'T EXCEED 2 IN 24 HOURS Last Documented On 6 9:22AM By GAYATHRI MORRISON ; [facility] Premium Condoms Lubricated Miscellaneous (not specified) 02/17/2016 - 03/18/2016 Provider: GAYATHRI MUHAMMAD Diagnosis: Acute vaginitis as directed USE DIRECTED Last Documented On 6 1:34PM By GAYATHRI MORRISON ; [facility] Fluconazole 150 MG Tablet 02/17/2016 - 02/19/2016 Prov ider: GAYTAHRI SERVIN BC Diagnosis: Acute vaginitis 1 daily Pt. is to take 1 now and then repeat in 3 days Last Documented On 6 1:29PM By GAYATHRI MORRISON ; [facility] Estradiol 1 MG Tablet 09/04/2015 - 11/03/2015 Provider: GAYATHRI SERVIN BC Diagnosis: Irregular menstr uation, unspecified One tablet daily TAKE 1 TABL ET DAILY AT ONSET OF BREAKTHROUGH BLEEDING AND COMPLETE DIRECTED Last Documented On 6 1:35PM By GAYATHRI MORRISON ; [facility] Naproxen 500 MG OR TABS 09/11/2014 - 03/16/2016 Provider: GAYATHRI MUHAMMAD Diagnosis: CONTRACEPT SURVE ILL NOS USE DIRECTED W/FOOD DON'T EXCEED 2 IN 24 HOURS Last Documented On 6 9:04AM By GAYATHRI MORRISON ; [facility] Nexplanon 68 MG SC IMPL 09/11/2014 - 03/16/2016 Provid er: Diagnosis: Last Documented On 6 9:03AM By GAYATHRI MORRISON ; [facility] Escitalopram Oxalate 10 MG OR TABS 07/16/2014 - 2016 Provider: Diagnosis: Last Documented On 7 8:48AM By BRITNI LOVETT ; [facility] Naproxen 500 MG OR TABS 07/16/2014 - 08/20/2014 Provid er: GAYATHRI SERVIN Diagnosis: DYSMENORRHEA USE DIRECTED DON'T EXCEED 2 TABS IN 24 HOURS Last Documented On 5 2:51PM By GAYATHRI SERVIN- ; [facility] Medications Administered Includes: Administered Medications in patient's chart Medications Administered Diagnosis Date Pro vider Gardasil 9 0.5 ML IM SUSP Encounter for immunization 0 09/16/2015 GAYATHRI SERVIN BC gardasil left deltoid IM, pt tolerated w ell Last Documented On 6 4:23PM By DAMARI MENA MA ; [facility] Results Includes: Results from 07/06/2024 through 07/06/2025 No Results Recorded For Specified Dates History of Present Illness History of Present Illness not supported for this document type No History of Present Illness Recorded Social History Description Last Updated Sexually active with 2 partners in the l ast year 07/21/2018 Last Documented On 9 10:20AM ; [facility] Social history changed 03/22/2018 Last Documented On 8 5:08PM ; [facility] No recent emotional stress 03/22/2018 Last Documented On 8 5:08PM ; [facility] Not exercising regularly 03/22/2018 Last Documented On 8 5:08PM ; [facility] Sexually active 3 weeks condo ms 100% of the time 11/28/2017 Last Documented On 8 11:12AM ; [facility] Smoking status : Never smoker 10/26/2017 Last Documented On 8 11:58AM ; [facility] control is being practiced 017 Last Documented On 7 4:23PM ; [facility] Currently in school 03/09/2017 Last Documented On 7 4:23PM ; [facility] [facility] Daily cola consumption OCC 03/09/2017 Last Documented On 7 4:23PM ; [facility] Daily tea consumption DAILY 03/09/2017 Last Documented On 7 4:23PM ; [facility] Education history 03/09/2017 Last Documented On 7 4:23PM ; [facility] Educational level 03/09/2017 Last Documented On 7 4:23PM ; [facility] Marital history SINGLE 03/09/2017 Last Documented On 7 4:23PM ; [facility] No consumption of alcohol 03/09/2017 Last Documented On 7 4:23PM ; [facility] Non-smoker 03/09/2017 Last Documented On 7 4:23PM ; [facility] Not using alcohol 03/09/2017 Last Documented On 7 4:23PM ; [facility] Not using drugs 03/09/2017 Last Documented On 7 4:23PM ; [facility] Personal history 03/09/2017 Last Documented On 7 4:23PM ; [facility] Sexually active 03/09/2017 Last Documented On 7 4:23PM ; [facility] Single 03/09/2017 Last Documented On 7 4:23PM ; [facility] In monogamous relationship 03/09/2017 Last Documented On 7 4:23PM ; [facility] Procedures and Surgical History Surgical History Last Updated History of surgery 04/06/2017 Last Documented On 7 2:11PM ; [facility] Surgical / procedural history laproscopy 07/27 Dr. Mccrary 03/09/2017 Last Documented On 7 4:23PM ; [facility] Surgical history unchanged 09/11/2014 Last Documented On 5 4:24PM ; [facility] Medical History Includes: Medical History in patient's chart Description Last Updated LMP: 06/17/2018 pt 07/21/2018 Last Documented On 9 10:20AM ; [facility] Not using contraception Pt p regnant; Pt states she has endometriosis and doesn't know what would be best condoms 100% at present 07/21/2018 Last Documented On 9 10:20AM ; [facility] NO PRIMARY CARE PROVIDER Dr She Logan 07/21/2018 Last Documented On 9 10:20AM ; [facility] section 03/22/2018 Last Documented On 8 5:08PM ; [facility] Para 1 03/22/2018 Last Documented On 8 5:08PM ; [facility] Sexually active last coitus 2 weeks ago 03/22/2018 Last Documented On 8 5:08PM ; [facility] is bottle-feeding 11/28/2017 Last Documented On 8 11:12AM ; [facility] Infant is not breast-feeding 11/28/2017 Last Documented On 8 11:12AM ; [facility] Baby thriving C/S 10/11/17 AMH 39- 7 tomi Cheung 7# 11oz 11/28/2017 Last Documented On 8 11:12AM ; [facility] Last pap smear date 07/07/17 cultures, n ot pap 11/28/2017 Last Documented On 8 11:12AM ; [facility] History of depression 04/06/2017 Last Documented On 7 2:11PM ; [facility] History of hematologic disorder 04/06/20 17 Last Documented On 7 2:11PM ; [facility] 1 03/09/2017 Last Documented On 7 4:23PM ; [facility] A colonoscopy was performed 2016 017 Last Documented On 7 4:23PM ; [facility] History of vaginitis 02/17/2016 Last Documented On 6 1:37PM ; [facility] Subdermal implant 10/14/2014 Last Documented On 5 4:06PM ; [facility] No recent change in medical history 10/2014 Last Documented On 5 4:24PM ; [facility] ORAL SURGERY 201207/16/2014 Last Documented On 5 3:00PM ; [facility] History of anxiety disorder NOS 07/16/19 15 Last Documented On 5 3:00PM ; [facility] Family History Includes: Family History in patient's chart Description Last Updated Maternal history of hypertension MOM, HEATHER D 09/04/2015 Last Documented On 6 1:31PM ; [facility] Paternal grandmother's history of diabet es mellitus PGM 09/04/2015 Last Documented On 6 1:31PM ; [facility] Family history of diabetes mellitus 12/2014 Last Documented On 5 4:06PM ; [facility] Family history unchanged 10/14/2014 Last Documented On 5 4:06PM ; [facility] Review of Systems Review of Systems not [...] Subscriber Relationship Effect jacky Dates 1 - [facility] [id number] MIGUEL ARECHIGA Child Clinical Notes Includes: Signed Clinical Notes starting from 07/30/2022 No Clinical Notes Recorded
--- OUTSIDE RECORDS SUMMARY | 2025-07-06 17:57 | XMS_ITS | Clinical Summary ---
Author Organization [facility] Address [address] [place] [address] Phone Care Team Providers Care Web Assistant Name Role Phone PHI RUSSELL MD Unavailable [phone] Reason for Visit and Chief Complaint The patient presents for a problem. - The Chief Complaint is: med refill sertraline and questions about endometriosis Problems Includes: Problems addressed during this encounter and other active Problems Current Visit Onset Date Resolved Date Provider [place] n Status Endometriosis Pelvic Peritoneum 03/22/2018 Unknown PHI RUSSELL MD Resolved Last Documented On 04/12/2018 11:50AM ; [facility] Note: was Closed. History of Depression 04/06/2017 Unknown PHI RUSSELL MD Resolved Last Documented On 04/12/2018 11:50AM ; [facility] Note: was Closed. History of Hematologic Disorders 04/06/2017 Unknown PHI RUSSELL MD Resolved Last Documented On 04/12/2018 11:50AM ; [facility] Note: was Closed. Plan of Treatment - Return to the clinic if condition worsens or new symptoms arise - Last Documented On 03/22/2018 5:08PM ; [facility] - Follow-up visit - Last Documented On 03/22/2018 5:08PM ; [facility] Assessments Includes: Assessments from this encounter Findings - Endometriosis of the pelvic peritoneum - Last Documented On 03/22/2018 5:08PM ; [facility] - Major depression, recurrent - Last Documented On 03/22/2018 5:08PM ; [facility] Medical Equipment - Implanted Devices Includes: Current [...] unspecified One tablet daily Pharmacy: Jessica lundberg [facility] [address] , [facility], [id number] - Last Documented On 07/14/2018 11:47AM By PHI RUSSELL MD ; [facility] Naproxen 500MG Oral Tablet Provider: GAYATHRI OCAMPO RN Kari P 10 day supply: 20 tablet, 6 refills Diagnosis: Endometriosis, unspecified One tablet twice a day USE A S DIRECTED DON'T EXCEED 2 TABS IN 24 HOURS Pharmacy: Jessica [facility] [place] [address] , [facility], [id number] - Last Documented On 8 5:06PM By GAYATHRI ASENCIO ; [facility] Current Medications (continue as prescribed) Sertraline HCl 50MG Oral Tablet 07/21/2018 Provider: PHI RUSSELL MD Diagnosis: Major depressive disorder, recurrent, unspecified One tablet daily Last Documented On 07/21/2018 10:30AM By PHI RUSSELL MD ; [facility] Sertraline HCl 50MG Oral Tablet 02/27/2018 Provider: PHI RUSSELL MD Diagnosis: One tablet daily Last Documented On 02/27/2018 5:48PM By PHI RUSSELL MD ; [facility] Past Medications on file Ferrous Gluconate 324 (37.5 Fe)MG Oral Tablet 08/11/2017 - 12/09/2017 Provider: GAYATHRI SERVIN Diagnosis: Anemia complicat ing the puerperium One tablet twice a day Last Documented On 8 8:54AM By GAYATHRI MORRISON ; [facility] Nitrofurantoin Monohyd Macro 100MG Oral Capsule 07/07/2017 - 07/14/2017 Provider: GAYATHRI SERVIN Diagnosis: Hematuria, unspe cified One tablet twice a day TAKE DIRECTED W/FOOD Last Documented On 7 10:46AM By GAYATHRI MORRISON ; [facility] Classic 28-0.8MG Oral Tablet 03/09/2017 - 03/04/2018 Provider: GAYATHRI SERVIN Diagnosis: Encounter for test, result positive 1 daily Last Documented On 7 2:22PM By GAYATHRI MORRISON ; [facility] Quasense 0.15-0.03MG Oral Tablet 08/10/2016 - 11/10/19 17 Provider: DAVID MCCRARY MD Diagnosis: One tablet daily Last Documented On 08/10/2016 9:06AM By DAVID MCCRARY MD ; [facility] Fluconazole 150 MG Tablet 05/17/2016 - 05/19/2016 Provider: GAYATHRI OCAMPO RN ROMERO Diagnosis: Candidiasis of v ulva and vagina TAKE 1 TAB DAY 1 and 1 tab day 3 Last Documented On 6 10:07AM By GAYATHRI MORRISON ; [facility] Naproxen 500 MG Tablet 03/16/2016 - 03/21/2016 Provider: GAYATHRI OCAMPO RN ROMERO Diagnosis: Encounter for surveillance of contraceptives, unspecified 1 BID USE DIRECTED W/FOOD DON'T EXCEED 2 IN 24 HOURS Last Documented On 6 9:22AM By GAYATHRI MORRISON ; [facility] Premium Condoms Lubricated Miscellaneous (not specified) 02/17/2016 - 03/18/2016 Provider: GAYATHRI OCAMPO RN ROMERO Diagnosis: Acute vaginitis as directed USE DIRECTED Last Documented On 6 1:34PM By GAYATHRI MORRISON ; [facility] Fluconazole 150 MG Tablet 02/17/2016 - 02/19/2016 Prov ider: GAYATHRI OCAMPO RN ROMERO BC Diagnosis: Acute vaginitis 1 daily Pt. is to take 1 now and then repeat in 3 days Last Documented On 6 1:29PM By GAYATHRI MORRISON ; [facility] Estradiol 1 MG Tablet 09/04/2015 - 11/03/2015 Provider: GAYATHRI SERVIN BC Diagnosis: Irregular menstr uation, unspecified One tablet daily TAKE 1 TABL ET DAILY AT ONSET OF BREAKTHROUGH BLEEDING AND COMPLETE DIRECTED Last Documented On 6 1:35PM By GAYATHRI MORRISON ; [facility] Naproxen 500 MG OR TABS 07/16/2014 - 08/20/2014 Provid er: GAYATHRI MUHAMMAD Diagnosis: DYSMENORRHEA USE DIRECTED DON'T EXCEED 2 TABS IN 24 HOURS Last Documented On 5 2:51PM By GAYATHRI MORRISON ; [facility] Medications Administered Includes: Administered Medications from this encounter No Administered Medications Recorded Vital Signs Includes: Vital Signs from this encounter Vital Name 03/22/2018 04:16P Blood Pressure Sitting (mmHg) 100/74 Height (in) 64 Weight (lb) 163 Body Mass Index (kg/m2) 28.0 BMI Percentile (percentile) 90 Body Surface Area (m2) 1.8 Last Documented: On 03/22/2018 4:20PM ; [facility] Results Includes: Results discussed during [...] Last Documented On 8 5:08PM ; [facility] No recent emotional stress 03/22/2018 Last Documented On 8 5:08PM ; [facility] Not exercising regularly 03/22/2018 Last Documented On 8 5:08PM ; [facility] Sexually active 3 weeks condo ms 100% of the time 11/28/2017 Last Documented On 8 4:15PM ; [facility] Smoking status : Never smoker 10/26/2017 Last Documented On 8 4:15PM ; [facility] control is being practiced 017 Last Documented On 8 4:15PM ; [facility] Daily cola consumption OCC 03/09/2017 Last Documented On 8 4:15PM ; [facility] Daily tea consumption DAILY 03/09/2017 Last Documented On 8 4:15PM ; [facility] Education history 03/09/2017 Last Documented On 8 4:15PM ; [facility] Educational level 03/09/2017 Last Documented On 8 4:15PM ; [facility] Marital history SINGLE 03/09/2017 Last Documented On 8 4:15PM ; [facility] No consumption of alcohol 03/09/2017 Last Documented On 8 4:15PM ; [facility] Not using drugs 03/09/2017 Last Documented On 8 4:15PM ; [facility] Personal history 03/09/2017 Last Documented On 8 4:15PM ; [facility] Sexually active 03/09/2017 Last Documented On 8 4:15PM ; [facility] Procedures and Surgical History Includes: Procedures from this encounter Procedures Code Diagnosis Performing Provider Service L ocation Service Date education and instructions handout given on [facility] for review, discussed use of progestin only contraception for sx. control. Pt. undecided at present, and will call for f/u appt. if desired. Serotonin syndrome precautions given and all questions answered Last Documented On 8 5:07PM ; [facility] Clinical summary provided to patient Last Documented On 8 5:07PM ; [facility] Surgical History Last Updated History of surgery endometri osis Dr Mccrary: dx L/S with excision of endometriosis and left ovarian bx 04/06/2017 Last Documented On 8 4:15PM ; [facility] Surgical / procedural history laproscopy 07/27 Dr. Mccrary 03/09/2017 Last Documented On 8 4:15PM ; [facility] Medical History Includes: Medical History addressed during this encounter Description Last Updated Contraception: Pt states she has endometriosis and doesn't know what would be best condoms 100% at present 03/22/2018 Last Documented On 8 5:08PM ; [facility] section 03/22/2018 Last Documented On 8 5:08PM ; [facility] LMP: 03/22/2018 03/22/2018 Last Documented On 8 5:08PM ; [facility] NO PRIMARY CARE PROVIDER Doesn't have on e 03/22/2018 Last Documented On 8 5:08PM ; [facility] Para 1 03/22/2018 Last Documented On 8 5:08PM ; [facility] Sexually active last coitus 2 weeks ago 03/22/2018 Last Documented On 8 5:08PM ; [facility] Infant is bottle-feeding 11/28/2017 Last Documented On 8 4:15PM ; [facility] Infant is not breast-feeding 11/28/2017 Last Documented On 8 4:15PM ; [facility] Baby thriving C/S 10/11/17 AMH 39- 07/17 tomi baig Luli Cheung 7# 11oz 11/28/2017 Last Documented On 8 4:15PM ; [facility] Last pap smear date 07/07/17 cultures, n ot pap 11/28/2017 Last Documented On 8 4:15PM ; [facility] History of depression MOB dx 's at 11 y old with meds since then; sertraline 100 mg; and her dad 04/06/2017 Last Documented On 8 4:15PM ; [facility] History of hematologic disor herman MOB and her mom. per pt low iron caused her mom to have seizures 04/06/2017 Last Documented On 8 4:15PM ; [facility] 1 03/09/2017 Last Documented On 8 4:15PM ; [facility] A colonoscopy was performed 2016 017 Last Documented On 8 4:15PM ; [facility] History of vaginitis 02/17/2016 Last Documented On 8 4:15PM ; [facility] ORAL SURGERY 2013 07/16/2014 Last Documented On 8 4:15PM ; [facility] History of anxiety disorder NOS 07/16/19 15 Last Documented On 8 4:15PM ; [facility] Family History Includes: Family History addressed during this encounter Description Last Updated Maternal history of hypertension MOM, HEATHER Verdugo 09/04/2015 Last Documented On 8 4:15PM ; [facility] Paternal grandmother's history of diabet es mellitus PGM 09/04/2015 Last Documented On 8 4:15PM ; [facility] Family history of diabetes mellitus 04/0 12/2014 Last Documented On 8 4:15PM ; [facility] Review of Systems Includes: Review of Systems [...] Diagnosis PROBLEM VISIT GAYATHRI OCAMPO RN WHNP [facility] COVER MAKER 03/22/20 18 3:59PM 4:56PM Endometriosis Pelvic Peritoneum,Major Depression, Recurrent Insurance Includes: Active Insurance Policies Plan Name Member ID Group # Subscriber Relationship Effect jacky Dates 1 - [facility] [id number] MIGUEL ARECHIGA Child Clinical Notes Includes: Clinical Notes from this encounter No Clinical Notes Recorded
--- OUTSIDE RECORDS SUMMARY | 2025-07-06 17:57 | XMS_ITS | Clinical Summary ---
Author Organization [facility] [employer] Address [address] [place] [address] Care Team Providers Care Postal Service Clerk Name Role Phone Salty Gordon MD Primary Care Provider [phone] Source Comments [facility] [employer],non-owned Affiliates and Associated Physician Practices is amultiple site organization consisting of ambulatory clinics and hospital sitesin [place], [place], [place] and [place]. This disclosure is being madepursuant to the Care Everywhere program and may not contain all information available regarding this patient. Last updated 18.[facility] [employer] Allergies No known active allergies Medications * [...] Comments Blood Pressure 107/73 08/14/2022 2:35 PM UNIFIED COMMUNICATIONS ENGINEER Pulse 135 08/14/2022 2:35 PM UNIFIED COMMUNICATIONS ENGINEER Temperature 36.9 C (98.5 F) 08/14/2022 2:35 PM UNIFIED COMMUNICATIONS ENGINEER Respiratory Rate 24 08/14/2022 2:35 PM UNIFIED COMMUNICATIONS ENGINEER Oxygen Saturation 98% 08/14/2022 2:35 PM UNIFIED COMMUNICATIONS ENGINEER Inhaled Oxygen Concentration - - Weight 83.8 kg (184 lb 11.9 oz) 08/14/2022 8:41 AM UNIFIED COMMUNICATIONS ENGINEER Height 162.6 cm (5' 4) 08/14/2022 8:41 AM UNIFIED COMMUNICATIONS ENGINEER Body Mass Index 31.71 08/14/2022 8:41 AM UNIFIED COMMUNICATIONS ENGINEER Plan of Treatment Health Maintenance Due Date [...] Subscriber ID:Not on file (Home) Address: [address] [place] [address] Payer ID:[id number] (NAIC) Type:O Address: [address] [place] [id number] [facility] Care Teams Postal Service Clerk Relationship Specialty Start Date End Date Salty Gordon MD [address] [place] [address] PCP - General Internal Medicine 08/06/22
--- OUTSIDE RECORDS SUMMARY | 2025-07-06 17:57 | XMS_ITS | Clinical Summary ---
Author Organization [facility] Address [address] [place] [address] Phone Care Team Providers Care Sheet Metal Worker Supervisor Name Role Phone YVONNE ZHANG, PHI Omalley Unavailable [phone] Reason for Visit and Chief Complaint * [...] Pharmacy: Jessica lundberg ([place] [address] [facility], [id number] - Last Documented On 07/21/2018 10:18AM By PHI RUSSELL MD ; [facility] Current Medications (continue as prescribed) Sertraline HCl 50MG Oral Tablet 07/21/2018 Provider: PHI RUSSELL MD Diagnosis: Major depressive disorder, recurrent, unspecified One tablet daily Last Documented On 07/21/2018 10:30AM By PHI RUSSELL MD ; [facility] Sertraline HCl 50MG Oral Tablet 02/27/2018 Provider: PHI RUSSELL MD Diagnosis: One tablet daily Last Documented On 02/27/2018 5:48PM By PHI RUSSELL MD ; [facility] Medications Administered Includes: Administered [...] Diagnosis * PHONE CALL PHI RUSSELL MD [facility] MOLD MECHANIC 9 9:49AM 11:59PM Insurance Includes: Active Insurance Policies Plan Name Member ID Group # Subscriber Relationship Effect jacky Dates 1 - [facility] [id number] MIGUEL ARECHIGA Child Clinical Notes Includes: Clinical Notes from this encounter No Clinical Notes Recorded
--- OUTSIDE RECORDS SUMMARY | 2025-07-06 17:57 | XMS_ITS | Clinical Summary ---
Author Organization [facility] Address [address] [place] [address] Phone Care Team Providers Care Pigment Supplier Name Role Phone YVONNE ZHANG, PHI Omalley Unavailable [phone] Reason for Visit and Chief Complaint 3 [...] 07/21/2018 10:30AM By PHI RUSSELL MD ; [facility] Sertraline HCl 50MG Oral Tablet 02/27/2018 Provider: PHI RUSSELL MD Diagnosis: One tablet daily Last Documented On 02/27/2018 5:48PM By PHI RUSSELL MD ; [facility] Medications Administered Includes: Administered Medications from this [...] Subscriber Relationship Effect jacky Dates 1 - [facility] [id number] MIGUEL ARECHIGA Child Clinical Notes Includes: Clinical Notes from this encounter No Clinical Notes Recorded
--- OUTSIDE RECORDS SUMMARY | 2025-07-06 17:57 | XMS_ITS | Clinical Summary ---
Author Organization [facility] Address [address] [place] [address] Phone Care Team Providers Care Career Counselor Name Role Phone YVONNE ZHANG, PHI Omalley Unavailable [phone] Reason for Visit and Chief Complaint MISSED [...] 07/21/2018 10:30AM By PHI RUSSELL MD ; [facility] Sertraline HCl 50MG Oral Tablet 02/27/2018 Provider: PHI RUSSELL MD Diagnosis: One tablet daily Last Documented On 02/27/2018 5:48PM By PHI RUSSELL MD ; [facility] Medications Administered Includes: Administered Medications from [...] Subscriber Relationship Effect jacky Dates 1 - [facility] [id number] MIGUEL ARECHIGA Child Clinical Notes Includes: Clinical Notes from this encounter No Clinical Notes Recorded
--- OUTSIDE RECORDS SUMMARY | 2025-07-06 17:57 | XMS_ITS | Clinical Summary ---
Author Organization [facility] Address [address] [place] [address] Care Team Providers Care Electrode Cleaning Machine Operator Name Role Phone Salty Gordon MD Primary Care Provider [phone] Allergies No known active allergies Medications sertraline (ZOLOFT) 50 mg tablet Take 50 mg by mouth daily. 6 Active prenat.vits,bill, [id number]-ajjfp ( VITAMIN) tablet Take by mouth daily. 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 Gender Identity Not on file Sexual Orientation [...] Most Recently Relevant to Health Maintenance Insurance [employer] [place] [place] ACC[place] ACC[place] ANTH ACCESS Advance Directives For more information, please contact: [phone] * Full Code (Latest Code Status on File) Date Activated Date Inactivated Comments 10/11/2017 4:27 PM 10/14/2017 11:53 PM * Full Code Date Activated Date Inactivated Comments 10/10/2017 4:36 PM 10/11/2017 4:27 PM Full CPR in ca se of cardiopulmonary arrest Care Teams Electrode Cleaning Machine Operator Relationship Specialty Start Date End Date Salty Gordon MD [address] [place] [address] PCP - General Family Medicine 08/11/22
[2025-07-06 17:58] VITALS: BP 120/81; PULSE 108; RESP 16; TEMP 37.8; O2SAT 97
--- OUTSIDE RECORDS SUMMARY | 2025-07-06 17:58 | XMS_ITS | Clinical Summary ---
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
--- OUTSIDE RECORDS SUMMARY | 2025-07-06 17:58 | XMS_ITS | Data Portability ---
Author Organization [place] [facility] [place] [facility] Address # [address] [place] [address] Care Team Providers Care Hat Forming Machine Feeder Name Role Phone MATA CASIANO Primary Care [...] [facility], [address], [place], [address], 6 04:06:24 CMP, serum or plasma 2015 016 [facility], [address], [place], [address], 6 04:06:16 CBC 2015 016 [facility], [address], [place], [address], 6 04:06:17 erythrocyte sedimentati on rate by westergren method 2015 016 [facility], [address], [place], [address], 6 04:06:17 Referral None recorded. Procedures None recorded. Surgeries None recorded. Imaging XR, chest, 2 view 2015 016 Not available 6 04:06:17 electrocard iogram 2015 016 Not available 6 04:06:17 Medication Orders sertraline 50 mg tablet 2015 016 [id number], [address], [place], [place], [id number], 6 04:06:24 ranitidine 150 mg tablet 2015 016 [email or web address] [facility][id number], [address], [place], [place], [id number], 7 17:11:57 albuterol sulfate HFA 90 mcg/actuati on aerosol inhaler 2015 016 [facility] #[id number], [address], [place], [place], [id number], 6 04:06:16 Patient TargetsNo targets recorded. Patient Instructions Encounter Date Encounter Id Patient Instructions Last Modified By Organization Details Last Modified Time 04/02/2016 [id number] wheezing or bronchoconstricti on: care instructions [email or web address] Not available 04/02/2016 14:18:27 05/10/2016 [id number] depression screening* [id number] Not available 06/26/2016 04:06:25 Reason for Referral None Reported. Results Created Date Observation Date Name Description Value Unit Range Abnormal Flag Note LastModifiedBy Organization Detail LastModifiedTime 05/10/20 16 05/10/2016 depre ssion scree karen* PDQ-9 12 Not Available [facility] [address], [place], [address], 05/10/2016 09:54:27 05/10/20 16 05/10/2016 hemog lobin (Hb), finge rstic k, blood HGB 11 Not Available [facility] [address], [place], [address], 05/10/2016 09:49:18 11/12/19 16 11/12/2015 monon ucleo sis, heter ophil e Ab, blood MONONUCLEOSI S, RAPID positi ve Not Available [facility] [address], [place], [address], 11/12/2015 15:49:17 11/12/19 16 11/14/2015 eryth rocyt e sedim entat ion rate by lloyd anderson metho d sed rate by modified henrikren 14 mm/h < or = 20 normal Not Available [address], [address], 11/14/2015 16:16:06 11/12/19 16 11/14/2015 CBC w/ auto diff white blood cell count 5.3 thous and/u L 4.5-13 .0 normal Not Available [address], [address], 11/14/2015 16:16:06 11/12/19 16 11/14/2015 CBC w/ auto diff red blood cell count 4.48 kwasi on/uL 3.80-5 .10 normal Not Available [address], [address], 11/14/2015 16:16:06 11/12/19 16 11/14/2015 CBC w/ auto diff hemoglobin 12.1 g/dL 11.5-1 5.3 normal Not Available [address], [address], 11/14/2015 16:16:06 11/12/19 16 11/14/2015 CBC w/ auto diff hematocrit 38.8 % 34.0-4 6.0 normal Not Available [address], [address], 11/14/2015 16:16:11/12/19 16 11/14/2015 CBC w/ auto diff MCV 86.6 fL 78.0-9 8.0 normal Not Available [address], [address], 11/14/2015 16:16:11/12/19 16 11/14/2015 CBC w/ auto diff MCH 27.0 pg 25.0-3 5.0 normal Not Available [address], [address], 11/14/2015 16:16:11/12/19 16 11/14/2015 CBC w/ auto diff MCHC 31.1 g/dL 31.0-3 6.0 normal Not Available [address], [address], 11/14/2015 16:16:11/12/19 16 11/14/2015 CBC w/ auto diff RDW 13.1 % 11.0-1 5.0 normal Not Available [address], [address], 11/14/2015 16:16:11/12/19 16 11/14/2015 CBC w/ auto diff platelet count 221 thous and/u L 140-40 0 normal Not Available [address], [address], 11/14/2015 16:16:11/12/19 16 11/14/2015 CBC w/ auto diff MPV 9.9 fL 7.5-11 .5 normal Not Available [address], [address], 11/14/2015 16:16:11/12/19 16 11/14/2015 CBC w/ auto diff absolute neutrophils 2629 cells /uL 1800-8 000 normal Not Available [address] [place], [address], 11/14/2015 16:16:11/12/19 16 11/14/2015 CBC w/ auto diff absolute lymphocytes 2237 cells /uL 1200-5 200 normal Not Available [facility] [address] [address] [place], [address], 11/14/2015 16:16:11/12/19 16 11/14/2015 CBC w/ auto diff absolute monocytes 323 cells /uL 200-90 0 normal Not Available [facility] [address] [address] [place], [address], 11/14/2015 16:16:11/12/19 16 11/14/2015 CBC w/ auto diff absolute eosinophils 80 cells /uL 15-500 normal Not Available [facility] [address] [address] [place], [address], 11/14/2015 16:16:06 11/12/19 16 11/14/2015 CBC w/ auto diff absolute basophils 32 cells /uL 0-200 normal Not Available [facility] [address] [address] [place], [address], 11/14/2015 16:16:11/12/19 16 11/14/2015 CBC w/ auto diff neutrophils 49.6 % normal Not Available [facility] [address] [address] [place], [address], 11/14/2015 16:16:11/12/19 16 11/14/2015 CBC w/ auto diff lymphocytes 42.2 % normal Not Available [facility] [address] [address] [place], [address], 11/14/2015 16:16:11/12/19 16 11/14/2015 CBC w/ auto diff monocytes 6.1 % normal Not Available [facility] [address] [address] [place], [address], 11/14/2015 16:16:11/12/19 16 11/14/2015 CBC w/ auto diff eosinophils 1.5 % normal Not Available [address], [address], 11/14/2015 16:16:06 11/12/19 16 11/14/2015 CBC w/ auto diff basophils 0.6 % normal Not Available [address], [address], 11/14/2015 16:16:06 11/12/19 16 11/14/2015 C-oneyda ctive prote in, quant itati ve, serum or plasm a C-reactive protein 0.22 mg/dL <0.80 normal Pleas e be advis ed that patie nts ivan g Carbo xypen icill ins may exhib it false ly decre ased C-Winfield ctive Prote in level s due to an josé tical inter feren ce in this assay . Not Available [address], [address], 11/14/2015 16:16:06 11/12/19 16 11/14/2015 epste in-ba rr virus (ebv) IgG + IgM panel , serum ebv viral capsid Ag (vca) Ab (IgM) 1.49 high Value Inter preta tion ----- ----- ----- ---- < or = 0.90 Negat jacky 0.91- 1.09 Equiv ocal > or = 1.10 Posit jacky Not Available [address], [address], 11/14/2015 16:16:07 11/12/19 16 11/14/2015 epste in-ba rr virus (ebv) IgG + IgM panel , serum ebv viral capsid Ag (vca) Ab (IgG) < OR = 0.90 normal Value Inter preta tion ----- ----- ----- ---- < or = 0.90 Negat jacky 0.91- 1.09 Equiv ocal > or = 1.10 Posit jacky Not Available [facility] [address], [address], 11/14/2015 16:16:07 11/12/19 16 11/14/[address] [facility] rr virus (ebv) IgG + IgM panel , serum ebv nuclear Ag (ebna) Ab (IgG) < OR = 0.90 normal Value Inter preta tion ----- ----- ----- ---- < or = 0.90 Negat jacky 0.91- 1.09 Equiv ocal > or = 1.10 Posit jacky Not Available [facility] [address], [address], 11/14/2015 16:16:07 11/12/19 16 11/14/2015 [facility] r[facility] virus (ebv) IgG + IgM panel , serum interpretati on: Sugge [facility]. Not Available [address] [place], [address], 11/14/2015 16:16:07 04/02/20 16 04/05/2016 CMP, serum or plasm a glucose 107 mg/dL 65-99 high Fasti ng refer ence inter kylie Not Available [facility] [address], [address], 04/05/2016 16:21:29 04/02/20 16 04/05/2016 CMP, serum or plasm a urea nitrogen (BUN) 11 mg/dL 7-20 normal Not Available [facility] [address], [address], 04/05/2016 16:21:29 04/02/20 16 04/05/2016 CMP, serum or plasm a creatinine 0.59 mg/dL 0.50-1 .00 normal Patie nt is <18 years old. Unabl e to calcu late eGFR. Not Available [address], [address], 04/05/2016 16:21:29 09/23/20 16 04/05/2016 CMP, serum or plasm a BUN/creatini ne ratio NOT APPLIC ABLE (calc ) 6-22 Not Available [address], [address], 04/05/2016 16:21:29 04/02/20 16 04/05/2016 CMP, serum or plasm a sodium 139 mmol/ L 135-14 6 normal Not Available [address], [address], 04/05/2016 16:21:29 04/02/20 16 04/05/2016 CMP, serum or plasm a potassium 4.1 mmol/ L 3.8-5. 1 normal Not Available [address], [address], 04/05/2016 16:21:29 04/02/20 16 04/05/2016 CMP, serum or plasm a chloride 103 mmol/ L 98-110 normal Not Available [address], [address], 04/05/2016 16:21:29 04/02/20 16 04/05/2016 CMP, serum or plasm a carbon dioxide 25 mmol/ L 20-31 normal Not Available [address], [address], 04/05/2016 16:21:29 04/02/20 16 04/05/2016 CMP, serum or plasm a calcium 9.3 mg/dL 8.9-10 .4 normal Not Available [address], [address], 04/05/2016 16:21:29 04/02/20 16 04/05/2016 CMP, serum or plasm a protein, total 7.6 g/dL 6.3-8. 2 normal Not Available [address], [address], 04/05/2016 16:21:29 04/02/20 16 04/05/2016 CMP, serum or plasm a albumin 4.5 g/dL 3.6-5. 1 normal Not Available [address], [address], 04/05/2016 16:21:29 04/02/20 16 04/05/2016 CMP, serum or plasm a globulin 3.1 g/dL_ (calc ) 2.0-3. 8 normal Not Available [address], [address], 04/05/2016 16:21:29 04/02/20 16 04/05/2016 CMP, serum or plasm a albumin/glob ulin ratio 1.5 (calc ) 1.0-2. 5 normal Not Available [address], [address], 04/05/2016 16:21:29 04/02/20 16 04/05/2016 CMP, serum or plasm a bilirubin, total 0.3 mg/dL 0.2-1. 1 normal Not Available [address], [address], 04/05/2016 16:21:29 04/02/20 16 04/05/2016 CMP, serum or plasm a alkaline phosphatase 54 U/L 47-176 normal Not Available [facility] [address] [address] [place], [address], 04/05/2016 16:21:29 04/02/20 16 04/05/2016 CMP, serum or plasm a AST 18 U/L 12-32 normal Not Available [address], [address], 04/05/2016 16:21:29 04/02/20 16 04/05/2016 CMP, serum or plasm a ALT 11 U/L 5-32 normal Not Available [address], [address], 04/05/2016 16:21:29 04/02/20 16 04/05/2016 CBC w/ auto diff white blood cell count 5.0 thous and/u L 4.5-13 .0 normal Not Available [address], [address], 04/05/2016 16:21:30 04/02/20 16 04/05/2016 CBC w/ auto diff red blood cell count 4.55 kwasi on/uL 3.80-5 .10 normal Not Available [address], [address], 04/05/2016 16:21:30 04/02/20 16 04/05/2016 CBC w/ auto diff hemoglobin 12.4 g/dL 11.5-1 5.3 normal Not Available [address], [address], 04/05/2016 16:21:30 04/02/20 16 04/05/2016 CBC w/ auto diff hematocrit 39.3 % 34.0-4 6.0 normal Not Available [address], [address], 04/05/2016 16:21:30 04/02/20 16 04/05/2016 CBC w/ auto diff MCV 86.3 fL 78.0-9 8.0 normal Not Available [address], [address], 04/05/2016 16:21:30 04/02/20 16 04/05/2016 CBC w/ auto diff MCH 27.2 pg 25.0-3 5.0 normal Not Available [address], [address], 04/05/2016 16:21:30 04/02/20 16 04/05/2016 CBC w/ auto diff MCHC 31.5 g/dL 31.0-3 6.0 normal Not Available [address], [address], 04/05/2016 16:21:30 04/02/20 16 04/05/2016 CBC w/ auto diff RDW 13.9 % 11.0-1 5.0 normal Not Available [address], [address], 04/05/2016 16:21:30 04/02/20 16 04/05/2016 CBC w/ auto diff platelet count 265 thous and/u L 140-40 0 normal Not Available [address], [address], 04/05/2016 16:21:30 04/02/20 16 04/05/2016 CBC w/ auto diff MPV 9.9 fL 7.5-11 .5 normal Not Available [address], [address], 04/05/2016 16:21:30 04/02/20 16 04/05/2016 CBC w/ auto diff absolute neutrophils 2395 cells /uL 1800-8 000 normal Not Available [address], [address], 04/05/2016 16:21:30 04/02/20 16 04/05/2016 CBC w/ auto diff absolute lymphocytes 2140 cells /uL 1200-5 200 normal Not Available [address], [address], 04/05/2016 16:21:30 04/02/20 16 04/05/2016 CBC w/ auto diff absolute monocytes 290 cells /uL 200-90 0 normal Not Available [address], [address], 04/05/2016 16:21:30 04/02/20 16 04/05/2016 CBC w/ auto diff absolute eosinophils 140 cells /uL 15-500 normal Not Available [address], [address], 04/05/2016 16:21:30 04/02/20 16 04/05/2016 CBC w/ auto diff absolute basophils 35 cells /uL 0-200 normal Not Available [address], [address], 04/05/2016 16:21:30 04/02/20 16 04/05/2016 CBC w/ auto diff neutrophils 47.9 % normal Not Available [address], [address], 04/05/2016 16:21:30 04/02/20 16 04/05/2016 CBC w/ auto diff lymphocytes 42.8 % normal Not Available [address], [address], 04/05/2016 16:21:30 04/02/20 16 04/05/2016 CBC w/ auto diff monocytes 5.8 % normal Not Available [address], [address], 04/05/2016 16:21:30 04/02/20 16 04/05/2016 CBC w/ auto diff eosinophils 2.8 % normal Not Available [address], [address], 04/05/2016 16:21:30 04/02/20 16 04/05/2016 CBC w/ auto diff basophils 0.7 % normal Not Available [address], [address], 04/05/2016 16:21:30 04/02/20 16 04/05/2016 epste in-ba rr virus (ebv) IgG + IgM panel , serum ebv viral capsid Ag (vca) Ab (IgM) < OR = 0.90 normal Value Inter preta tion ----- ----- ----- ---- < or = 0.90 Negat jacky 0.91- 1.09 Equiv ocal > or = 1.10 Posit jacky Not Available [address] [place], [address], 04/05/2016 16:21:30 04/02/20 16 04/05/2016 epste in-ba rr virus (ebv) IgG + IgM panel , serum ebv viral capsid Ag (vca) Ab (IgG) 3.64 high Value Inter preta tion ----- ----- ----- ---- < or = 0.90 Negat jacky 0.91- 1.09 Equiv ocal > or = 1.10 Posit jacky Not Available [facility] [address] [address] [place], [address], 04/05/2016 16:21:30 04/02/20 16 04/05/2016 epste in-ba rr virus (ebv) IgG + IgM panel , serum ebv nuclear Ag (ebna) Ab (IgG) 4.28 high Value Inter preta tion ----- ----- ----- ---- < or = 0.90 Negat jacky 0.91- 1.09 Equiv ocal > or = 1.10 Posit jacky Not Available [facility] [address], [address], 04/05/2016 16:21:30 04/02/20 16 04/05/2016 epste in-ba rr virus (ebv) IgG + IgM panel , serum interpretati on: Sugge stive of a past Epste in-Ba rr virus infec tion. In infan ts, a sneha prince rn may occur as a resul t of passi ve mater nal trans gomez of antib william. Not Available [facility] [address] [place], [address], 04/05/2016 16:21:30 04/02/20 16 04/02/2016 cherelle schmidt am No observ ation record ed. [email or web address] Not Available 2015 17:40:25 04/05/20 16 04/02/2016 XR, chest , 2 view No observ ation record ed. [email or web address] Not Available 2015 13:42:59 04/06/20 16 04/02/2016 XR, chest , 2 view No observ ation record ed. [email or web address] [facility] [address] , [place], [address], 04/06/2016 18:36:00 07/01/20 16 06/28/2016 CT, abdom en, w/o contr ast No observ ation record ed. [email or web address] Not Available 2015 17:14:09 Result Notes None recorded. Problems Name Problem SNOMED Code Status Onset Date Resolution Date Notes Provider Name and Address Organization Details Recorded Time Abdominal pain 90382549 Completed 10/18/2014 Mata Casiano MD [address] [place] [address], [address], [facility], 5 12:44:48 Viral syndrome 981383532 Completed 10/18/2014 Mata Casiano MD [address] [place] [address], [address], [facility], 5 12:44:48 Viral infection by site Completed 10/18/2014 Mata Casiano MD [address] [place] [address], [address], [facility], 5 12:44:48 Dizziness and giddiness 195615610 Completed 10/18/2014 Mata Casiano MD [address] [place] [address], [address], [facility], 5 12:44:48 Contact dermatitis 29200627 Completed 10/18/2014 Mata Casiano MD [address] [place] [address], [address], [facility], 5 12:44:48 Influenza with respiratory manifestati on other than pneumonia Completed 10/18/2014 Mata Casiano MD [address] [place] [address], [address], [facility], 5 12:44:48 Fibromyosit is 42919778 Completed 10/18/2014 Mata Casiano MD [address], [address], [facility], 5 12:44:48 Orthostatic hypotension 78397507 Completed 10/18/2014 Mata Casiano MD [address], [address], [facility], 5 12:44:48 Acute pharyngitis 906949591 Completed 10/18/2014 Mata Casiano MD [address], [address], [facility], 5 12:44:48 Backache 482225107 Completed 10/18/2014 Mata Casiano MD [address], [address], [facility], 5 12:44:48 Pain in limb 37999787 Completed 10/18/2014 Mata Casiano MD [address], [address], [facility], 5 12:44:48 Depressive disorder 10928169 Active Mata Casiano MD [address], [address], [facility], 6 15:33:51 Folliculiti s 13088050 Completed 10/18/2014 Mata Casiano MD [address], [address], [facility], 5 12:44:48 Viral disease 45676594 Completed 10/18/2014 Mata Casiano MD [address], [address], [facility], 5 12:44:48 Streptococc al sore throat 12818842 Completed 11/12/2015 ERAN Stone [address], [address], [facility], 6 15:00:22 Bacterial folliculiti s 196066372 Active Mata Casiano MD [address] [facility] [address], [place], [address], [facility], 5 12:45:19 Hypertrophy of tonsils 86366953 Active BRIANNE THURSTON APRN-FPA [address] [facility] [address], [place], [address], [facility], 5 14:15:29 Acute chest pain 555560102 Completed 201504/02/2016 Mary hilarioBANNER, 6 11:36:16 Problem Notes None recorded. Procedures Surgical History Date Name Laterality Status Provider Name and Address Organization Details Recorded Time 6 Nebulizer tx completed Mary Pierson [facility], 04/20/2016 16:59:33 Imaging Results None recorded. Procedure [...] 6 120 /min 97.59 [degF] 16 /min 43215.6 6 g 110/68 mm[Hg] ERAN Stone 4 [facility] [address] [place] [address], [address], 6 16:43:31 Date Recorded Oxygen saturation Body weight Heart rate Respiratory rate Systolic And Diastolic Provider Name and Address Organization Details Last Updated DateTime 6 100 % 25258.6 6 g 96 /min 20 /min 120/88 mm[Hg] ERAN Stone [address] [facility] [address], [place], [address], [facility], 6 10:53:29 Date Recorded Heart rate Respiratory rate Body height Body weight Body mass index (BMI) Systolic And Diastolic Provider Name and Address Organization Details Last Updated DateTime 6 88 /min 16 /min 165.1 cm 59301.4 5 g 20.6 kg/m2 104/68 mm[Hg] Romana Valerio [facility], 6 09:14:08 Date Recorded Body height Body mass index (BMI) Body weight Heart rate Respiratory rate Body temperature Systolic And Diastolic Provider Name and Address Organization Details Last Updated DateTime 7 165.1 cm 23.3 kg/m2 72909.9 3 g 100 /min 20 /min 98.8 [degF] 118/66 mm[Hg] Bertha Burnham [facility], 7 17:09:23 Date Recorded Body height Body weight Body mass index (BMI) Heart rate Respiratory rate Body temperature Systolic And Diastolic Provider Name and Address Organization Details Last Updated DateTime 6 165.1 cm 95726.2 3 g 21.1 kg/m2 90 /min 20 /min 99.9 [degF] 112/70 mm[Hg] Bertha Burnham [place] - [facility], 6 17:10:23 Social History Question Answer Notes LastModified by Organizat ion Details LastModified Time Tobacco Smoking Status Never Smoker Not Available [facility] 05/06/2020 03:10:52 Animal Exposure? Yes 2 Dogs 1 Cat Information not available 06/19/2012 Are There Any Guns Present In Your Home? No [id number] Information not available 05/06/2020 What Is Your Home Situation? Both Parents [id number] Information not available 05/06/2020 Do You Use Insect Repellent Routinely? Yes [id number] Information not available 05/06/2020 What Is Your Parents' Marital Status? [id number] Information not available 05/06/2020 What Is The Name Of Your School? [employer] [id number] Information not available 05/06/2020 Do You Use Your Seat Belt Or Car Seat Routinely? Yes [id number] Information not available 05/06/2020 Do You Have Any Siblings? 6 Only 1 At Home [id number] Information not available 05/06/2020 Do You Have Smoke And Carbon Monoxide Detectors In Your Home? Yes [id number] Information not available 05/06/2020 Are You Passively Exposed To Smoke? No Information not available 06/19/2012 What Types Of Sporting Activities Do You Participate In? Volleyball [id number] Information not available 05/06/2020 Do You Use Sunscreen Routinely? Yes [id number] Information not available 05/06/2020 Year In School 8 [employer]format[employer] n not available 06/19/2012 Sex: Unknown Functional Status None recorded. Mental Status None recorded. Family History Nothing Reported. Medical History Condition Response Diabetes N Other Developmental Delay N Bedwetting N ER or UC Visits Y Skin problems N Nasal Allergies N Asthma / Wheezing N Frequent Ear Infections N Hospitalizations N Frequent Headaches N ADD [...] 12/14/2011 12:45:43 varicella 0 completed Not Available [facility] 05/26/2011 06:14:34 Tdap 0 completed Not Available [facility] 05/26/2011 06:13:51 meningococcal ACWY, unspecified formulation 0 completed Not Available [facility] 05/26/2011 06:13:51 Influenza, split virus, quadrivalent, PF 6 completed Not Available [facility] 07/28/2019 02:12:45 Hep A, ped/adol, 2 dose 2 completed Not Available [facility] 07/28/2019 02:11:59 varicella 2 completed Not Available [facility] 07/28/2019 02:11:53 Influenza, live, trivalent, intranasal, PF 2 completed Not Available [facility] 07/28/2019 02:12:23 Past Encounters Encounter ID Performer Location Encounter Start Date Encounter Closed Date Diagnosis/Indication Diagnosis SNOMED-CT Code Diagnosis ICD10 Code Diagnosis IMO Codes Diagnosis Note [id number] [facility] [address] [place] [address],[address] [place] [address] 01/22/2010 12:33:49 01/22/2010 12:34:52 [id number] Mata Casiano [facility] [address] [place] [address],[address] [place] [address] 09/13/2011 13:20:02 09/15/2011 14:12:44 [id number] Mata Casiano [facility] [address] [place] [address],[address] [place] [address] 09/24/2011 17:26:38 09/28/2011 11:06:38 [id number] [facility] [address] [place] [address] 03/14/2012 14:43:09 03/16/2012 11:37:39 [id number] [facility] [address] [place] [address] 06/19/2012 11:07:28 06/20/2012 10:48:28 [id number] [facility] [address] [place] [address] 06/26/2012 16:04:26 06/27/2012 14:44:53 [id number] Mata Cas[facility] [address] [place] [address] 10/05/2012 09:48:20 10/06/2012 09:51:25 [id number] [facility] [address] [place] [address] 01/02/2013 15:55:07 01/05/2013 10:47:40 [id number] BRIANNE THURSTON APRN-FPA [facility] [address] [place] [address] 02/05/2013 17:36:42 02/06/2013 14:11:16 [id number] Mata Casiano [facility] [address] [place] [address] 03/30/2013 16:55:14 04/03/2013 12:31:22 [id number] Mata Casiano [facility] [address] [place] [address] 04/19/2013 15:32:22 04/23/2013 12:39:26 [id number] Mata Cas[facility] [address] [place] [address] 08/20/2013 13:46:32 08/21/2013 11:35:16 Abdominal pain [id number] Viral syndrome [id number] Mata Casiano MD [facility] [address] [place] [address] [employer] [place] [address] 11/02/2013 13:50:21 11/03/2013 09:44:41 Depressive disorder [id number] Henrietta Carlson MD [facility] [address] [place] [address] [employer],[address] [place] [address] 01/21/2014 12:26:53 01/24/2014 10:07:35 Folliculitis [id number] Henrietta Carlson [facility] [employer],[address] [place] [address] 08/13/2014 14:17:01 08/15/2014 10:48:20 Acute pharyngitis [id number] Henrietta Carlson MD [facility] E [address] [place] [address] [employer],[address] [place] [address] 08/22/2014 16:14:49 08/23/2014 15:11:55 Viral disease [id number] Mata Casiano MD [facility] [address] [place] [address] [employer] [place] [address] 10/08/2014 10:49:36 10/10/2014 10:10:15 Acute pharyngitis [id number] Mata Casiano MD [facility] E [address] [place] [address] [employer],[address] [place] [address] 10/18/2014 11:18:13 10/19/2014 10:06:49 Streptococcal sore throat [id number] Bacterial folliculitis [id number] Fever [id number] Mata Casiano MD [facility] [address] [place] [address] [employer],[address] [place] [address] 12/06/2014 14:43:15 12/07/2014 09:59:18 Depressive disorder [id number] [facility] [address] [place] [address] [employer],[address] [place] [address] 06/20/2015 12:05:22 06/20/2015 16:59:46 Hypertrophy of tonsils [id number] J35.1 Depressive disorder [id number] F32.9 [id number] Mata Casiano MD [facility] E [address] [place] [address] 09/01/2015 14:21:49 09/02/2015 11:31:24 Depressive disorder [id number] F33.2 [id number] Henrietta Carlson MD [facility] E [address] [place] [address] 11/12/2015 14:48:03 11/13/2015 16:47:23 Lymphadenopathy [id number] R59.0 [place]- discussed dx/course/ sx treatment. Abscess discussed- with intention to treat until CBC results obtained.N o sports or rough activity. Patient to return in 2 days.. Call for any severe or worrisome symptoms. [id number] Mata Casiano MD [facility] E [address] [place] [address] 11/14/2015 11:16:01 11/15/2015 09:57:12 Infectious mononucleosis [id number] B27.90 Mononucleo sis- Continue rest and encourage fluids. Discussed starting steroid burst for throat pain/edema . Swallowing ok. Continue no sports or gym for 4-6 weeks until released. Tylenol or ibuprofen for fever/disc omfort. RTC for worsening symptoms. CBC WNL, but as clindamyci n was started for concern for lymphadeni tis, would continue. [id number] Mata Casiano MD [facility] E [address] [place] [address] 11/25/2015 16:33:08 11/27/2015 12:01:48 Papular eruption [id number] R21 Likely viral in origin, should be self-limit ing. Avoid an irritants to face. Call with new or concerning symptoms. [id number] Henrietta Carlson MD [facility] E [address] [place] [address] 04/02/2016 10:48:05 04/09/2016 15:30:12 Acute chest pain [id number] R07.9 CXR negative. EKG Normal. Education given to Mom. Epigastric pain [id number] R10.13 GERD. Patient symptoms resolved after initial dose of nexium sample given in office today.Educ ation given. Follow up in one week. Wheezing [id number] R06.2 Expiratory wheezing noted on exam. Improved with nebulizer treatment. Discussed wheezing/a nxiety. Education given. Follow up in one week. [id number] Mata Cas[facility] [address] [place] [address],[address] [address] 05/10/2016 09:03:30 05/11/2016 10:07:24 Depressive disorder 00592319 F33.2 Vast improvemen t in her PHQ-9, but remains with multitude of somatic complaints . Discussed possibilit y of somatic symptom disorder. Recommende d daily exercise, getting a job or volunteer opportunit y. Encouraged that she has applied to [employer]. Refilling her sertraline for 6mo. RTC early 2016 for recheck. Diet poor [id number] Z72. 4 Horrendous intake of only guacamole, chips and lettuce. Recommende d MVI with iron daily and improved diet. Influenza vaccine needed [id number] 106 Z23 I discussed with the parent the vaccines ordered below that the patient is to receive today; all questions were answered and the informatio nal handout(s) was/were given. [id number] Henrietta Carlson [facility] [address] [place] [address],[address] [address] 06/29/2016 17:03:15 07/01/2016 12:07:48 Abdominal pain [id number] R10.30 Etiologies include:CORNELIUS BARKER - urine from [...] has appt in 2 weeks at gyne [id number] [facility],[address] [place] [address] 06/09/2017 17:00:40 06/09/2017 17:46:00 Health Concerns Section Related Observation LastModified by Organization Detai ls LastModified Time None Recorded Concern Status LastModified by Organization Details LastModified Time None Recorded Advance Directives Directive None Recorded Payers Insurance Date Sequence Insurance Name Policy Number Policy Hernandez Covered Member ID Hernandez Member ID Guarantor Name 02/23/2014 1 [employer] - [employer] - OPEN ACCESS (HMO) [id number] Liudmila Fierro [id number] Shona Fierro 06/09/2017 1 [place] [id number] Liudmila Fierro [id number] Shona Fierro 08/27/2017 1 [place] [id number] Liudmila Fierro [id number] Shona Fierro Notes Date Note Type Note [...] noted in the HPI AMADEO YAÑEZ [address] [facility] [address], [place], [address], [place] [facility], 11/25/2015 17:55:15 [...] as noted in the HPI [facility], 04/20/2016 16:59:40 05/10/20 16 text/htm l Generic HPI TemplateReported by PatientDenies any SI/HISleeping 5 or 6pm to 2 or 3 am. C/o feeling tired. Not napping.ROS as noted in the HPI Mata Casiano MD [address] [place] [address] [address], [address], [facility], 05/10/2016 10:21:45 06/29/20 16 text/htm [...] noted in the HPI Henrietta Carlson MD [address] [place] [address] [address], [address], [facility], 06/30/2016 22:36:59 06/09/20 17 text/htm l Anxiety/DepressionReported by PatientHPIFor context, patient reportsmajor life stressors (pt is currently 22 weeks ). For associated symptoms, patient reportsanxietyanddepression(claudia up says zoloft has helped improve her symptoms of anxiety and depression.). For severity, patient reportsdenies suicidal ideations. Lona Arroyo [facility], [place] - [facility], 06/09/2017 17:45:58 OBGyn Episode No OBEpisode recorded.
[2025-07-06 18:24] LABS: EDCOVIDSCREEN Negative (Negative); EDINFLUASCREEN Positive (Negative); EDINFLUBSCREEN Negative (Negative); EDSTREPNEGPOS1 Negative (Negative)
--- NOTE | 2025-07-06 18:29 | ED_ITS ---
HPI - URI/Sore Throat General Chief Complaint: Upper Respiratory Infection Stated Complaint: flu symptoms/throat Time Seen by Provider: 07/06/25 18:15 Source: patient and RN notes reviewed Mode of arrival: ambulatory Limitations: no limitations History of Present Illness HPI Narrative: 24-year-old female presents Express Care complaining of upper respiratory symptoms for 2 days. Patient reports fevers, cough, congestion, body aches, chills. Patient says she was given a flu shot 10 days ago after her . Patient is currently 10 days . Patient denies any chest pain, difficulty breathing, nausea vomiting, diarrhea, or any other symptoms. Patient has been taking Tylenol ibuprofen to help with her symptoms. Patient denies any other significant past medical problems. Patient is currently . Related Data Allergies Allergy/AdvReac Type Severity Reaction Status Date / Time tramadol Allergy Severe THROAT Verified 07/06/25 18:08 SWELLING amoxicillin Allergy Unknown Other Verified 07/06/25 18:08 clavulanic acid (From Allergy Unknown Other Verified 07/06/25 18:08 Augmentin) Review of Systems Review of Systems: CONSTITUTIONAL: Positive for fever, body aches, chills. Negative for sweats. EYES: Denies visual changes, redness, or discharge. ENT: Denies rhinorrhea, or otalgia. Positive for congestion, sore throat. CARDIOVASCULAR: Denies chest pain, palpitations, or edema. RESPIRATORY: Positive for cough. Negative for dyspnea. GASTROINTESTINAL: Denies abdominal pain, nausea, vomiting, or diarrhea. GENITOURINARY: Denies dysuria or hematuria. SKIN: Denies rash or itching. MUSCULOSKELETAL: Denies back pain, joint pain, or myalgia. NEUROLOGIC: Denies headache, numbness, or weakness. PSYCHIATRIC: Denies anxiety or depression. All other systems reviewed are negative, except as documented in HPI. [facility] Past Medical History Medical History Threatened miscarriage Pharyngitis Suppression of menstruation Urinary tract infection Endometriosis Anemia GERD (gastroesophageal reflux disease) Anxiety and depression Surgical History Surgical History Delivery by section (03/29/22) rpt c/s History of laparoscopy 2017 diagnostic--endometriosis and lt ovarian bx History of 03/11/19 10/11/17 Family History Family History Mother Hypertension Father Hypertension Grandparent Diabetes mellitus paternal grandmother Social History Social History Smoking status: Never smoker Second hand tobacco smoke exposure: No Alcohol intake: never Substance use: never Substance use type: does not use Lack of Transportation: No Lack of Food: Never True Current Housing: I Have Housing Concerned About Future Housing: No Difficulty Paying Gas/Electric Bills: No Difficulty Paying for Meds: No Currently Unemployed: YES Education: Trade/Vocational Certificate Difficulty w/ Childcare or Family Care: No Living arrangements: other Additional living arrangements comments: single Occupation/Education: occupation 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 There is no relevant family history pertinent to the patient complaint. Exam Narrative: GENERAL: This is a well-nourished, well-developed adult, in no apparent distress. They are non ill-appearing, nontoxic appearing. HEAD: normocephalic, atraumatic. EYES: Sclera clear/white. Conjunctiva normal. Vision is grossly intact. Extraocular movements intact EARS: External ears normal, auditory canals clear and without drainage, TMs normal without perforation. Hearing grossly intact. NOSE: External nose normal with no obvious nasal discharge, nasal turbinates erythematous, no rhinorrhea. THROAT: Mucous membranes moist, posterior pharynx erythematous. PND present. U vula midline. NECK: Neck supple, non-tender without lymphadenopathy, masses or thyromegaly. CARDIOVASCULAR: Regular rate and rhythm without murmurs, gallops, or rubs. RESPIRATORY: Clear to auscultation. Breath sounds equal bilaterally. No wheezes, rales, or rhonchi. SKIN: warm, Dry, intact with no suspicious lesions or rash, good texture and turgor. NEURO: awake, alert, and oriented to person, place and time. There were no obvious focal neurologic abnormalities. EXTREMITIES: No joint tenderness, effusion, or edema noted. BACK: Nontender without deformity. Course Course Level of Care: Express Care Visit Vital Signs Vital signs: Vital Signs Temperature 100.0 F H 07/06/25 17:58 Pulse Rate 108 H 07/06/25 17:58 Respiratory Rate 16 07/06/25 17:58 Blood Pressure 120/81 07/06/25 17:58 Pulse Oximetry 97 07/06/25 17:58 Oxygen Delivery Room Air 07/06/25 17:58 Temperature 100.0 F H 07/06/25 17:58 Pulse Rate 108 H 07/06/25 17:58 Respiratory Rate 16 07/06/25 17:58 Blood Pressure 120/81 07/06/25 17:58 Pulse Oximetry 97 07/06/25 17:58 Oxygen Delivery Room Air 07/06/25 17:58 MDM MDM Narrative Medical decision making narrative: Rapid flu is positive. Negative COVID and strep. A throat culture is pending. According up-to-date Tamiflu passes only a very small amount into breast milk, consider clinically insignificant for the infant. Through shared decision making with mother, patient would like to go ahead and start Tamiflu. Patient did get a flu shot but it was 10 days ago. Prescription of Tamiflu sent to pharmacy. Discussed supportive care with patient. Advised she may continue to breast feed and be beneficial for her to continue to do so and developed more passive immunity. And foreign mother if her develops fever to go to hospital immediately. Discussed physical exam findings. Advised supportive measures and signs/symptoms to go to the ER. Pt is appropriate for outpt treatment and f/u. Differential Diagnosis Differential Diagnosis: Differential diagnostic considerations for upper respiratory infection include upper respiratory infection, croup, otitis media, sinusitis, viral infection, bronchitis, influenza, pharyngitis, strep, uvulitis. Lab Data [facility] Lab Attestation statement: I personally reviewed the patient's lab results. Labs: Lab Results 07/06/25 Range/Units 18:22 POC Influenza A Ag Positive (Negative) POC Influenza B Ag Negative (Negative) POC SARS CoV-2 Ag Negative (Negative) POC Grp A Strep Screen Negative (Negative) Critical Care Time Critical Care Time Critical Care Time: No Discharge Plan Discharge Clinical Impression: Influenza Patient Disposition: Home Condition: Stable Instructions: Antibiotic Form, Influenza (ED) Additional Instructions: You should avoid crowds until you are fever free for 24 hours without the use of fever reducing medications, or the symptoms are improved Rest. Drink plenty of fluids. Humidifier at night. You may take ibuprofen 600 mg to 800 mg every 6-8 hours. Do not exceed more than 800 mg of ibuprofen per dose. Do not exceed more than 3200 mg ibuprofen in a day. You may take up to 1000 mg Tylenol every 6-8 hours. Do not exceed 1000 mg per dose, do exceed more than 4000 mg of Tylenol in a day. Take the Tamiflu as directed. Follow up with your primary care provider 3-5 days. Go to the ER for worsening symptoms, chest pains, breathing problems, vomiting, weakness, or any serious concerns If your develops a fever please take him to the ER immediately preferably a [facility] if the is stable , otherwise call 911. Patient Language: Korean Prescriptions: New oseltamivir [Tamiflu] 75 mg capsule 75 mg PO Q12H 5 Days Qty: 10 0RF Follow-up/Referrals: PHYSICIAN,ASSEMBLER [employer]ING [employer] [Primary Care Provider, Internal Medicine] Time of Disposition: 18:26
== END 2025-07-06 18:30 | disposition home or self-care (01) ==
DX: O99.53 Diseases of the respiratory system complicating the puerperium (principal); J10.1 Influenza due to other identified influenza virus with other respiratory manifestations; Z20.822 Contact with and (suspected) exposure to COVID-19; O90.89 Other complications of the puerperium, not elsewhere classified; N80.9 Endometriosis, unspecified; O99.63 Diseases of the digestive system complicating the puerperium; K21.9 Gastro-esophageal reflux disease without esophagitis
CPT/HCPCS: 87081; 87426; 87804; 87880; 99213; G0463